=== PATIENT | female | born 1960 | race Caucasian/White ===

== ENCOUNTER → 2016-10-17 | Outpatient (CLI) | payer MEDICARE ==
--- NOTE | 2016-10-17 16:04 | NM ---
EXAMINATION TYPE: NM bone 3 phase DATE OF EXAM: 10/17/2016 2:01 PM COMPARISON: NONE HISTORY: Low back pain Triple phase bone scintigraphy was performed following the injection of25.4 mCi Tc 99m MDP. Immediat e images and 5 hours post injection images acquired. FINDINGS: Blood flow and pool images are normal. Delayed static imaging shows increased activity in the posterior elements of L2. The entire spine is not imaged. IMPRESSION: Abnormal activity in the L2 vertebral body. CT scan versus MRI of the lumbar spine would be suggested .
== END | disposition home or self-care (01) ==
LOC: RADNMMAIN 07:36
PROVIDERS: ATTEND Family Medicine
DX: M54.17 Radiculopathy, lumbosacral region (principal); M86.9 Osteomyelitis, unspecified; M54.5 Low back pain; R94.8 Abnormal results of function studies of other organs and systems; Z98.1 Arthrodesis status
CPT/HCPCS: 78315; A9503

== ENCOUNTER → 2016-10-28 | Outpatient (CLI) | payer MEDICARE ==
--- NOTE | 2016-10-28 12:52 | US ---
EXAMINATION TYPE: US venous doppler duplex LE LT DATE OF EXAM: 10/28/2016 12:44 PM COMPARISON: NONE CLINICAL HISTORY: M79.662 PAIN LT LOWER LIMB, R22.42 SWELLING LT LOWER LIMB. Left leg pain and swelli ng SIDE PERFORMED: Left VESSELS IMAGED: External Iliac Vein (EIV) Common Femoral Vein Deep Femoral Vein Greater Saphenous Vein * Femoral Vein Popliteal Vein Small Saphenous Vein * Proximal Calf Veins (* superficial vessels) TECHNOLOGIST IMPRESSION: wnl IMPRESSION: Left Leg: Negative for DVT
[2016-10-28 13:23] LABS: Basophils % (A) 1 %; CH 33.9; CHCM 32.3; Eosinophils # (A) 0.1 k/uL (0-0.7); Eosinophils % (A) 2 %; HDW 2.06; HGB 14.2 gm/dL (11.4-16.0); Luc # (Auto) 0.16; Luc % (Auto) 2; Lymphocytes # (A) 1.7 k/uL (1.0-4.8); Lymphocytes % (A) 23 %; MCH 33.2 pg (25.0-35.0); MCHC 31.4 g/dL (31.0-37.0); MCV 105.5 fL (80.0-100.0); Macrocytosis Moderate; Mean Platelet Volume 7.4; Monocytes # (A) 0.3 k/uL (0-1.0); Monocytes % (A) 4 %; Neutrophils % (A) 68 %; RBC 4.27 m/uL (3.80-5.40); RDW 13.5 % (11.5-15.5); WBC 7.3 k/uL (3.8-10.6); WBC (Perox) 7.52
[2016-10-28 15:23] LABS: Erythrocyte Sedimentation Rate 8 mm/hr (0-20)
== END | disposition home or self-care (01) ==
LOC: RADUSWWP 12:20
PROVIDERS: ATTEND Family Medicine
DX: M79.662 Pain in left lower leg (principal); M79.89 Other specified soft tissue disorders; S80.02XA Contusion of left knee, initial encounter; M79.605 Pain in left leg
CPT/HCPCS: 36415; 85025; 85652; 86140

== ENCOUNTER → 2016-11-07 | Outpatient (CLI) | payer MEDICARE ==
[2016-11-07 17:46] LABS: Non-African American GFR(MDRD) >60 (>60 ml/min/1.73 sqM)
--- NOTE | 2016-11-07 23:03 | MR ---
EXAMINATION TYPE: MR lumbar spine wo/w con DATE OF EXAM: 11/07/2016 8:52 PM COMPARISON: Bone scan 17 October 2016, prior lumbar MRI 23 February 2015, plain film 22 February 2015 HISTORY: LOW BACK PAIN AND LEFT LEG TECHNIQUE: Multiplanar, multisequence images of the lumbar spine were acquired utilizing 13 mL intravenous Multi Rosalie gadolinium contrast. L1-L2: Right posterior paracentral extension of endplate disc complex is present causing anterolatera l mass effect on the thecal sac. There is facet arthropathy encroaching on the lateral recess right g reater than left as well as circumferential extension of endplate disc complex encroaching somewhat o n the right neural foramen. The oblique loss of height of the L2 vertebral body causes a scoliosis. L2-L3: Broad-based posterior disc bulge causes only mild anterior mass effect on the thecal sac, no s ignificant foraminal encroachment. Similar facet arthropathy causes only mild posterior lateral mass effect on the thecal sac. L3-L4: Posterior broad-based disc bulge causes anterior mass effect on the thecal sac similar to prio r exam, only mild central stenosis, no significant foraminal encroachment. Mild facet arthropathy. L4-L5: There is a lateral disc herniation which encroaches on the neural foramen which may have progr essed in the interval left greater than right. Some anterolateral mass effect is present on the theca l sac. Circumferential posterior disc herniation causes anterior mass effect on the thecal sac somewh at increased as compared to previous exam, moderate central canal stenosis is suspected. L5-S1: Normal disc appearance without desiccation. No herniation, protrusion or disc bulging. No ca nal stenosis is present. Foramina are patent bilaterally. Lumbar segments are intact. No paraspinal masses are identified. Conus medullaris has a normal appe arance. There is been interval oblique loss of height of the L2 vertebral body and secondary hypertrophic demetria nge with spondylosis, endplate marrow signal change. Loss of disc height and signal is present. There is some enhancement at the superior endplate of L2. Multilevel spondylosis is present with associated loss of disc height and signal. Posterior fusion ch lonnie present at L5-S1, susceptibility artifact likely causes decreased sensitivity. IMPRESSION: There has been progression of scoliosis due to oblique loss of height of the L2 vertebral body. Endpl ate signal changes are thought likely due to degenerative change, difficult to entirely exclude disci tis, correlate clinically. Progression of disc herniation L4-5. Limitations due to postprocedural demetria nges. Multilevel degenerative disc disease as described. Consider plain film correlation in compariso n to previous plain film, CT scan through the lumbar spine.
== END ==
LOC: RADMRIMAIN 17:23
PROVIDERS: ATTEND Family Medicine
DX: M41.9 Scoliosis, unspecified (principal); M51.26 Other intervertebral disc displacement, lumbar region; M51.36 Other intervertebral disc degeneration, lumbar region
CPT/HCPCS: 82565; 72158; 36415; A9577

== ENCOUNTER → 2017-01-16 | Outpatient (CLI) | payer MEDICARE ==
[2017-01-16 14:56] LABS: EKG EKG PERFORMED
[2017-01-16 15:22] LABS: Basophils % (A) 0 %; CH 33.4; CHCM 31.1; Eosinophils # (A) 0.1 k/uL (0-0.7); Eosinophils % (A) 1 %; HDW 1.92; HGB 14.4 gm/dL (11.4-16.0); Luc # (Auto) 0.13; Luc % (Auto) 1; Lymphocytes # (A) 0.9 k/uL (1.0-4.8); Lymphocytes % (A) 9 %; MCH 33.6 pg (25.0-35.0); MCHC 31.2 g/dL (31.0-37.0); MCV 107.8 fL (80.0-100.0); Macrocytosis Moderate; Mean Platelet Volume 6.9; Monocytes # (A) 0.4 k/uL (0-1.0); Monocytes % (A) 4 %; Neutrophils % (A) 84 %; RBC 4.27 m/uL (3.80-5.40); RDW 12.5 % (11.5-15.5); WBC 9.5 k/uL (3.8-10.6); WBC (Perox) 10.01
[2017-01-16 15:27] LABS: INR 0.9 (<1.1); Partial Thromboplastin Time 23.1 sec (22.0-30.0); Prothrombin Time 9.4 sec (9.0-12.0)
[2017-01-16 15:49] LABS: ALT 25 U/L (9-52); AST 19 U/L (14-36); Alkaline Phosphatase 79 U/L (38-126); Blood Urea Nitrogen 22 mg/dL (7-17); Calcium 9.9 mg/dL (8.4-10.2); Carbon Dioxide 26 mmol/L (22-30); Glucose 422 mg/dL (74-99); Non-African American GFR(MDRD) >60 (>60 ml/min/1.73 sqM); Potassium 5.7 mmol/L (3.5-5.1); Sodium 136 mmol/L (137-145); Total Bilirubin 0.6 mg/dL (0.2-1.3); Total Protein 7.2 g/dL (6.3-8.2)
[2017-01-16 15:57] LABS: Anion Gap 10 mmol/L; Chloride 100 mmol/L (98-107)
[2017-01-16 16:07] LABS: Appearance,Urine Clear (Clear); Bilirubin,Urine Negative (Negative); Glucose,Urine (UA) 4+ (Negative); Ketones,Urine Negative (Negative); Leukocyte Esterase,Urine Negative (Negative); Nitrite,Urine Negative (Negative); Protein,Urine Negative (Negative); Specific Gravity,Urine 1.022 (1.001-1.035); UA Billing (MACRO vs. MICRO) CHEM; Urobilinogen,Urine <2.0 mg/dL (<2.0)
== END | disposition home or self-care (01) ==
LOC: LABWHC1 14:46
DX: Z01.810 Encounter for preprocedural cardiovascular examination (principal); M47.26 Other spondylosis with radiculopathy, lumbar region
CPT/HCPCS: 36415; 80053; 81003; 85025; 85610; 85730; 93005

== ENCOUNTER → 2017-02-19 | Outpatient (CLI) | payer MEDICARE ==
--- NOTE | 2017-02-19 15:41 | XR ---
EXAMINATION TYPE: XR lumbar spine 2 or 3V DATE OF EXAM: 02/19/2017 CLINICAL HISTORY: Low back pain into left leg. Surgery September 2016. TECHNIQUE: Dynamic flexion and extension lateral images of the lumbar spine are obtained. COMPARISON: MRI lumbar spine November 07, 2016. FINDINGS: Posterior fusion hardware lumbosacral junction is redemonstrated. There is disc space narro wing with sclerosis and vacuum disc phenomenon at L1-L2 level redemonstrated. With mild height loss s uperior anterior L2 endplate is again seen. No suspicious focal subluxation is present on dynamic fle xion and extension views throughout the lumbar spine including surgical L5-S1 level. Overlying vascul ar calcification is present. Spinous process resection lower lumbar levels is redemonstrated. IMPRESSION: As above
== END | disposition home or self-care (01) ==
LOC: RADXRMAIN 14:43
DX: M48.06 Spinal stenosis, lumbar region (principal)
CPT/HCPCS: 72100

== ENCOUNTER → 2017-10-26 | Outpatient (CLI) | payer MEDICARE, OTHER ==
--- NOTE | 2017-10-26 20:21 | XR ---
EXAMINATION TYPE: XR lumbar spine 2 or 3V DATE OF EXAM: 10/26/2017 COMPARISON: 06/29/2017 HISTORY: Back pain TECHNIQUE: 3 views FINDINGS: There are posterior rods and screws fusing the lumbar spine at L4-5. There is disc prosthes is at L4-5. Vertebra have fairly normal alignment. There is 40% anterior wedging of L2 vertebral body . Abdominal aorta is atheromatous. There is laminectomy of L4 and L5. IMPRESSION: Previous surgery. Old L2 compression fracture. No acute fracture seen. No significant demetria nge compared to old exam.
== END | disposition home or self-care (01) ==
LOC: RADXRMAIN 16:18
DX: M47.26 Other spondylosis with radiculopathy, lumbar region (principal)
CPT/HCPCS: 72100

== ENCOUNTER → 2017-12-24 | Outpatient (CLI) | payer MEDICARE ==
[2017-12-24 13:33] LABS: ALT 17 U/L (9-52); AST 16 U/L (14-36); Albumin 4.4 g/dL (3.5-5.0); Alkaline Phosphatase 70 U/L (38-126); Anion Gap 13 mmol/L; Blood Urea Nitrogen 27 mg/dL (7-17); Calcium 10.4 mg/dL (8.4-10.2); Carbon Dioxide 25 mmol/L (22-30); Chloride 104 mmol/L (98-107); Glucose 294 mg/dL (74-99); Potassium 4.9 mmol/L (3.5-5.1); Sodium 142 mmol/L (137-145); Total Bilirubin 0.5 mg/dL (0.2-1.3); Total Protein 6.9 g/dL (6.3-8.2)
--- NOTE | 2017-12-24 13:40 | XR ---
EXAMINATION TYPE: XR lumbar spine 2 or 3V DATE OF EXAM: 12/24/2017 COMPARISON: 10/26/2017 HISTORY: Spondylosis with radiculopathy TECHNIQUE: Three-view lumbar spine FINDINGS: There 5 lumbar-type vertebral bodies. Pedicles visualized are intact. There are pedicle scr ews at L4 and L5. Disc spacers present L4-5. There is a compression deformity with 50% loss of anteri or vertebral body height of L2. Degenerative disc changes are present L1-L2 posteriorly at L3-4. Dege nerative disc changes are present L5-S1. There is scoliosis present in the frontal projection. IMPRESSION: 1. Multilevel degenerative disc changes. 2. Old compression deformity of L2. 3. Scoliosis
== END | disposition home or self-care (01) ==
LOC: LABWHC1 12:54
PROVIDERS: ATTEND Internal Medicine Endocrinology, Diabetes & Metabolism
DX: M47.26 Other spondylosis with radiculopathy, lumbar region (principal); M41.86 Other forms of scoliosis, lumbar region; E10.65 Type 1 diabetes mellitus with hyperglycemia
CPT/HCPCS: 36415; 72100; 80053; 84681

== ENCOUNTER 2018-07-28 14:04 | Emergency (ER) | payer MEDICARE ==
--- NOTE | 2018-07-28 14:38 | ED ---
General Adult HPI - General Chief complaint: Fall Stated complaint: WEAKNESS Time Seen by Provider: 07/28/18 14:20 Source: patient, EMS, RN notes reviewed Mode of arrival: EMS Limitations: no limitations - History of Present Illness Initial comments: Patient is a pleasant 58-year-old female presenting to the emergency Department with weakness. Patient is drowsy and is a poor historian. Patient states she felt fine this morning and then around noon started having speech problems. Patient states she still has speech problems. Patient states she does have chronic foot drop on the left since back surgery several months ago. Patient states her left leg seems weaker than normal and she fell down. Patient does not feel confused. Patient did vomit once. Patient denies any injury when she fell. Patient states she was trying to use her walker. Patient denies any head injury or loss of consciousness. Patient states she does not feel well. Patient is overall a poor historian. - Related Data Home Medications Medication Instructions Recorded Confirmed LORazepam [Ativan] 1 mg PO BID PRN 05/29/16 07/28/18 Gabapentin 800 mg PO TID 07/28/18 07/28/18 Hydrocodone/Acetaminophen [[place] 1 tab PO Q8H PRN 07/28/18 07/28/18 10-325] Ibuprofen [Motrin] 800 mg PO TID PRN 07/28/18 07/28/18 Insulin Glargine [Lantus] 20 unit SQ HS 07/28/18 07/28/18 Methocarbamol [Robaxin] 750 mg PO TID PRN 07/28/18 07/28/18 Ondansetron HCl [Zofran] 4 mg PO Q6H PRN 07/28/18 07/28/18 QUEtiapine [SEROquel] 400 mg PO HS 07/28/18 07/28/18 fentaNYL 25MCG/HR PATCH [Duragesic 1 patch TRANSDERM Q72H 07/28/18 07/28/18 25MCG/HR] lamoTRIgine [LaMICtal] 100 mg PO TID 07/28/18 07/28/18 lamoTRIgine [LaMICtal] 200 mg PO BID 07/28/18 07/28/18 Allergies Allergy/AdvReac Type Severity Reaction Status Date / Time codeine Allergy Unknown Verified 07/28/18 14:54 bupropion HCl AdvReac TIA Verified 07/28/18 14:53 [From Wellbutrin] steroids AdvReac INCREASED Uncoded 07/28/18 14:14 BLOOD SUGAR Review of Systems ROS Statement: Those systems with pertinent positive or pertinent negative responses have been documented in the HPI. ROS Other: All systems not noted in ROS Statement are negative. Constitutional: Denies: fever Eyes: Denies: eye pain ENT: Denies: ear pain Respiratory: Denies: cough Cardiovascular: Denies: chest pain Endocrine: Reports: fatigue Gastrointestinal: Reports: vomiting. Denies: abdominal pain Genitourinary: Denies: dysuria Musculoskeletal: Denies: back pain Skin: Denies: rash Neurological: Reports: weakness, abnormal gait. Denies: headache, confusion Past Medical History Past Medical History: CVA/TIA, Diabetes Mellitus Additional Past Medical History / Comment(s): bipolar, tia 2006, chronic lower back pain, dry skin, osteomyelitis History of Any Multi-Drug Resistant Organisms: None Reported Past Surgical History: Back Surgery, Section, Hysterectomy Additional Past Surgical History / Comment(s): Lumbar laminectomy followed by lumbar fusion with Dr. Fox, right carpal tunnel release Past Anesthesia/Blood Transfusion Reactions: No Reported Reaction Past Psychological History: Anxiety, Bipolar, Depression Smoking Status: Current some day smoker Past Alcohol Use History: None Reported Past Drug Use History: None Reported - Past Family History Father Family Medical History: Diabetes Mellitus, Hyperlipidemia, Hypertension Additional Family Medical History / Comment(s): retinopathy Mother Family Medical History: Hyperlipidemia, Hypertension, Myocardial Infarction ([place]) , Thyroid Disorder Additional Family Medical History / Comment(s): triple vessel cabg General Exam Limitations: no limitations General appearance: other (Patient is drowsy but arousable to voice. Patient mumbles all words. Patient is slow to follow commands.) Head exam: Present: atraumatic, normocephalic Eye exam: Present: normal appearance, PERRL ENT exam: Present: normal oropharynx Neck exam: Present: normal inspection. Absent: tenderness Respiratory exam: Present: normal lung sounds bilaterally Cardiovascular Exam: Present: regular rate, normal rhythm Expanded Peripheral pulses: 2+: Radial (R), Radial (L), Dorsalis Pedis (R), Dorsalis Pedis (L) GI/Abdominal exam: Present: soft. Absent: tenderness Extremities exam: Present: normal inspection. Absent: pedal edema, calf tenderness Neurological exam: Present: CN II-XII intact Expanded Neurological exam: Present: protecting the airway, other (Patient mumbles. Patient is slow to follow commands.) Patient oriented to: Present: person, place, time Cranial nerves: EOM's Intact: Normal Sensory exam: Upper Extremity Light Touch: Normal, Lower Extremity Light Touch: Normal Motor strength exam: RUE: 5, LUE: 5, RLE: 2/1, LLE: 2/1 (Patient unable to dorsiflex) Eye Response: (3) open to voice Motor Response: (6) obeys commands Verbal Response: (5) oriented Psychiatric exam: Present: flat affect Skin exam: Present: normal color Course Vital Signs 07/28/18 07/28/18 07/28/18 14:06 14:13 14:30 Temperature 98.2 F Pulse Rate 93 94 91 Respiratory 18 20 Rate Blood Pressure 177/98 177/98 O2 Sat by Pulse 96 93 L 95 Oximetry 07/28/18 07/28/18 07/28/18 15:00 15:30 16:00 Temperature Pulse Rate 84 71 67 Respiratory 20 18 20 Rate Blood Pressure 181/92 176/90 165/85 O2 Sat by Pulse 97 95 96 Oximetry 07/28/18 07/28/18 16:30 17:00 Temperature 98.0 F Pulse Rate 64 80 Respiratory 18 18 Rate Blood Pressure 174/74 179/79 O2 Sat by Pulse 98 98 Oximetry - Reevaluation(s) Reevaluation #1: 07/28/18 14:37 Patient does have abnormal presentation. Code stroke was called for possible acute stroke. 07/28/18 15:03 Nursing did discuss case with Dr. Boo who recommends conservative treatment, no TPA EKG Findings - EKG Comments: EKG Findings:: Normal sinus rhythm 89. TN 152. QRS 90. QT 402. QTC 49. Normal axis. Septal Q waves. No acute ST change. Medical Decision Making - Medical Decision Making Patient reevaluated and is symptom-free at this time. Daughter is present and also agrees patient is acting normal at this time. Patient states she did have similar symptoms years ago associated with TIA. Daughter does question if symptoms could be medication related. No focal deficits on exam. Clear speech. Patient follows commands appropriately. Case was discussed in detail with Dr. Clifton who is familiar with this patient. He is comfortable with discharge home and will follow up with patient on Thursday. Patient updated. Patient is made aware that TIA is not completely ruled out at this point and would need to return if there are worsening symptoms. - Lab Data Result diagrams: 07/28/18 14:12 07/28/18 14:12 Lab Results 07/28/18 07/28/18 07/28/18 Range/Units 14:12 14:12 14:12 WBC 7.3 (3.8-10.6) k/uL RBC 4.09 (3.80-5.40) m/uL Hgb 13.7 (11.4-16.0) gm/dL Hct 42.2 (34.0-46.0) % MCV 103.1 H (80.0-100.0) fL MCH 33.4 (25.0-35.0) pg MCHC 32.4 (31.0-37.0) g/dL RDW 13.0 (11.5-15.5) % Plt Count 338 (150-450) k/uL Neutrophils % 57 % Lymphocytes % 33 % Monocytes % 6 % Eosinophils % 2 % Basophils % 0 % Neutrophils # 4.1 (1.3-7.7) k/uL Lymphocytes # 2.4 (1.0-4.8) k/uL Monocytes # 0.4 (0-1.0) k/uL Eosinophils # 0.2 (0-0.7) k/uL Basophils # 0.0 (0-0.2) k/uL Macrocytosis Slight PT (9.0-12.0) sec INR (<1.2) APTT (22.0-30.0) sec Sodium 144 (137-145) mmol/L Potassium 4.1 (3.5-5.1) mmol/L Chloride 109 H (98-107) mmol/L Carbon Dioxide 25 (22-30) mmol/L Anion Gap 10 mmol/L BUN 23 H (7-17) mg/dL Creatinine 0.61 (0.52-1.04) mg/dL Est GFR (CKD-EPI)AfAm >90 (>60 ml/min/1.73 sqM) Est GFR (CKD-EPI)NonAf >90 (>60 ml/min/1.73 sqM) Glucose 93 (74-99) mg/dL POC Glucose (mg/dL) (75-99) mg/dL POC Glu [employer] Counter Person ID Calcium 10.3 H (8.4-10.2) mg/dL Total Bilirubin 0.5 (0.2-1.3) mg/dL AST 26 (14-36) U/L ALT 21 (9-52) U/L Alkaline Phosphatase 71 (38-126) U/L Total Creatine Kinase 126 (30-135) U/L CK-MB (CK-2) 2.6 H (0.0-2.4) ng/mL CK-MB (CK-2) Rel Index 2.1 Troponin I <0.012 (0.000-0.034) ng/mL Total Protein 7.6 (6.3-8.2) g/dL Albumin 4.4 (3.5-5.0) g/dL 07/28/18 07/28/18 Range/Units 14:12 15:11 WBC (3.8-10.6) k/uL RBC (3.80-5.40) m/uL Hgb (11.4-16.0) gm/dL Hct (34.0-46.0) % MCV (80.0-100.0) fL MCH (25.0-35.0) pg MCHC (31.0-37.0) g/dL RDW (11.5-15.5) % Plt Count (150-450) k/uL Neutrophils % % Lymphocytes % % Monocytes % % Eosinophils % % Basophils % % Neutrophils # (1.3-7.7) k/uL Lymphocytes # (1.0-4.8) k/uL Monocytes # (0-1.0) k/uL Eosinophils # (0-0.7) k/uL Basophils # (0-0.2) k/uL Macrocytosis PT 9.4 (9.0-12.0) sec INR 0.9 (<1.2) APTT 20.6 L (22.0-30.0) sec Sodium (137-145) mmol/L Potassium (3.5-5.1) mmol/L Chloride (98-107) mmol/L Carbon Dioxide (22-30) mmol/L Anion Gap mmol/L BUN (7-17) mg/dL Creatinine (0.52-1.04) mg/dL Est GFR (CKD-EPI)AfAm (>60 ml/min/1.73 sqM) Est GFR (CKD-EPI)NonAf (>60 ml/min/1.73 sqM) Glucose (74-99) mg/dL POC Glucose (mg/dL) 99 (75-99) mg/dL POC Glu [employer] Counter Person ID Monica Bucio Calcium (8.4-10.2) mg/dL Total Bilirubin (0.2-1.3) mg/dL AST (14-36) U/L ALT (9-52) U/L Alkaline Phosphatase (38-126) U/L Total Creatine Kinase (30-135) U/L CK-MB (CK-2) (0.0-2.4) ng/mL CK-MB (CK-2) Rel Index Troponin I (0.000-0.034) ng/mL Total Protein (6.3-8.2) g/dL Albumin (3.5-5.0) g/dL - Radiology Data Radiology results: report reviewed (Computed tomography scan of the brain shows no acute process. CT angiogram shows some narrowing of the right internal carotid artery without significant flow limitation.), image reviewed (Chest x- ray shows no acute process) Disposition Clinical Impression: Altered mental status Disposition: HOME SELF-CARE Condition: Stable Instructions: Altered Mental Status (ED) Additional Instructions: Please follow-up with Dr. Clifton on Thursday. You could call him at anytime if needed before then. Return for change in mental status, weakness, confusion , loss of sensation, speech comes, worsening symptoms or other concerns. Is patient prescribed a controlled substance at d/c from ED?: No Referrals: Ricky Clifton MD [Primary Care Provider] - 1-2 days Time of Disposition: 17:42
[2018-07-28 15:00] LABS: Basophils % (A) 0 %; Eosinophils # (A) 0.2 k/uL (0-0.7); Eosinophils % (A) 2 %; HCT 42.2 % (34.0-46.0); HGB 13.7 gm/dL (11.4-16.0); Lymphocytes # (A) 2.4 k/uL (1.0-4.8); Lymphocytes % (A) 33 %; MCH 33.4 pg (25.0-35.0); MCHC 32.4 g/dL (31.0-37.0); MCV 103.1 fL (80.0-100.0); Macrocytosis Slight; Mean Platelet Volume 6.5; Monocytes # (A) 0.4 k/uL (0-1.0); Monocytes % (A) 6 %; Neutrophils # (A) 4.1 k/uL (1.3-7.7); Neutrophils % (A) 57 %; Platelet Count 338 k/uL (150-450); RBC 4.09 m/uL (3.80-5.40); WBC 7.3 k/uL (3.8-10.6)
[2018-07-28 15:03] LABS: ALT 21 U/L (9-52); AST 26 U/L (14-36); Albumin 4.4 g/dL (3.5-5.0); Alkaline Phosphatase 71 U/L (38-126); Anion Gap 10 mmol/L; Blood Urea Nitrogen 23 mg/dL (7-17); Calcium 10.3 mg/dL (8.4-10.2); Carbon Dioxide 25 mmol/L (22-30); Chloride 109 mmol/L (98-107); Glucose 93 mg/dL (74-99); Potassium 4.1 mmol/L (3.5-5.1); Sodium 144 mmol/L (137-145); Total Bilirubin 0.5 mg/dL (0.2-1.3); Total Protein 7.6 g/dL (6.3-8.2)
[2018-07-28 15:04] LABS: Creatine Kinase 126 U/L (30-135)
[2018-07-28 15:17] LABS: Creatine Kinase MB 2.6 ng/mL (0.0-2.4); Troponin I <0.012 ng/mL (0.000-0.034)
--- NOTE | 2018-07-28 15:17 | CT ---
EXAMINATION TYPE: CT brain wo con for TPA DATE OF EXAM: 07/28/2018 COMPARISON: 05/31/2016 INDICATION: Bilateral leg weakness, history of CVA. DLP: 1037 mGycm, Automated exposure control for dose reduction was used. CONTRAST: None CT of the brain is performed utilizing 3 mm thick sections through the posterior fossa and 3 mm thick sections through the remaining calvarium. Study is performed within 24 hours of arrival to the hosp ital. No abnormal hyperdensity is present to suggest an acute intracranial hemorrhage. No mass lesion is evident. No acute infarcts are evident. No old infarcts are identified. Ventricles and sulci are mildly prominent for the patient age. Paranasal sinuses and mastoid air cells within the [id number] are clear. IMPRESSIONS: 1. No acute intracranial process.
--- NOTE | 2018-07-28 15:18 | XR ---
EXAMINATION TYPE: XR chest 1V portable DATE OF EXAM: 07/28/2018 COMPARISON: 05/29/2016 HISTORY: Altered mental status TECHNIQUE: Upright AP chest FINDINGS: Heart size is normal. The pulmonary vasculature is normal. No suspicious infiltrates are ev ident. No significant interval changes evident. IMPRESSION: 1. No acute pulmonary process.
[2018-07-28 15:21] LABS: INR 0.9 (<1.2); Prothrombin Time 9.4 sec (9.0-12.0)
[2018-07-28 15:25] LABS: Partial Thromboplastin Time 20.6 sec (22.0-30.0)
[2018-07-28 15:38] LABS: Glucose,Whole Blood 99 mg/dL (75-99)
--- NOTE | 2018-07-28 16:43 | CT ---
EXAMINATION TYPE: CT angio head neck DATE OF EXAM: 07/28/2018 HISTORY: Bilateral leg weakness, history of CVA. COMPARISON: None CT DLP: 338.2 mGycm. Automated Exposure Control for Dose Reduction was Utilized. TECHNIQUE: CTA scan of the neck is performed with IV Contrast, patient injected with 65 mL of Isovue 370, axial images are obtained, coronal and sagittal reformatted images are reviewed. Three-D recons tructed images are created on an independent workstation and reviewed. FINDINGS: Carotid/Vascular Structures: Carotid bifurcations are normal. No significant stenosis is evident. The re is some narrowing at the origin of the right internal carotid artery There is a three-vessel arch. Vertebral arteries appear codominant. Other: [place]: Internal carotid arteries bifurcate normally into A1 and M1 segments. Anteri or communicating artery is patent. A2 segments are normal. No posterior communicating arteries are ev ident. Vertebrobasilar arteries within the [id number] are normal. Posterior cerebral vasculature i s normal. Middle cerebral artery branching appears normal. IMPRESSION: 1. Some narrowing at the origin of the right internal carotid artery without significant flow-limitin g stenosis. 2. Left carotid bifurcation appears normal. 3. [place] appears normal.
[2018-07-28 18:10] LABS: Appearance,Urine Clear (Clear); Bilirubin,Urine Negative (Negative); Blood,Urine Negative (Negative); Color,Urine Light Yellow; Glucose,Urine (UA) Negative (Negative); Ketones,Urine Negative (Negative); Leukocyte Esterase,Urine Negative (Negative); Nitrite,Urine Negative (Negative); PH, Urine 7.5 (5.0-8.0); Protein,Urine Trace (Negative); Specific Gravity,Urine 1.019 (1.001-1.035); Urobilinogen,Urine <2.0 mg/dL (<2.0)
[2018-07-28 18:21] LABS: Amphetamine Screen,Urine Not Detected (NotDetected); Barbiturate Screen,Urine Not Detected (NotDetected); Benzodiazepines Screen,Urine Detected (NotDetected); Cocaine Screen,Urine Not Detected (NotDetected); Methadone Screen, Urine Not Detected (NotDetected); Opiate Screen,Urine Not Detected (NotDetected); Oxycodone Screen, Urine Not Detected (NotDetected); Phencyclidine Screen,Urine Not Detected (NotDetected); Tricyclic Antidepressant,Urine Not Detected (NotDetected); Urn Cannabinoid Scrn Not Detected (NotDetected)
[2018-07-28 18:32] VITALS: BP 166/88; PULSE 79; RESP 20; TEMP 98.1
[2018-07-29 04:10] LABS: Hemoglobin A1C 9.4 % (4.0-6.0)
== END 2018-07-28 18:32 | disposition home or self-care (01) ==
LOC: EC 14:04
DX: R41.82 Altered mental status, unspecified (principal); R53.1 Weakness; R11.10 Vomiting, unspecified; M21.379 Foot drop, unspecified foot; E11.69 Type 2 diabetes mellitus with other specified complication; M86.9 Osteomyelitis, unspecified; F31.9 Bipolar disorder, unspecified; R40.2132 Coma scale, eyes open, to sound, at arrival to emergency department; R40.2252 Coma scale, best verbal response, oriented, at arrival to emergency department; R40.2362 Coma scale, best motor response, obeys commands, at arrival to emergency department; F41.9 Anxiety disorder, unspecified; F17.200 Nicotine dependence, unspecified, uncomplicated; Z86.73 Personal history of transient ischemic attack (TIA), and cerebral infarction without residual deficits; Z90.710 Acquired absence of both cervix and uterus; Z98.1 Arthrodesis status; Z98.890 Other specified postprocedural states; Z79.4 Long term (current) use of insulin; Z79.899 Other long term (current) drug therapy; Z88.5 Allergy status to narcotic agent; Z88.8 Allergy status to other drugs, medicaments and biological substances; W19.XXXA Unspecified fall, initial encounter
CPT/HCPCS: 36415; 93005; 80053; 82550; 82553; 84484; 85025; 85610; 85730; 81003; 80306; 83036; 71045; 70496; 70450; 70498; 99285; Q9967

== ENCOUNTER 2018-09-17 11:53 | Emergency (ER) | payer MEDICARE ==
[2018-09-17 11:59] VITALS: TEMP 97.3
[2018-09-17] MEDS ORDERED: SODIUM CHLORIDE 0.9% 1,000 ML IV STA ×3 (12:19→15:16)
--- NOTE | 2018-09-17 12:23 | ED ---
Recheck HPI - General Chief Complaint: Recheck/Abnormal Lab/Rx Stated Complaint: hyperglycemia Time Seen by Provider: 09/17/18 12:00 Source: patient Mode of arrival: EMS Limitations: no limitations - History of Present Illness Initial Comments: This is a 58-year-old female history bipolar disorder and diabetes who was sent in by her doctor today because of blood sugar greater than 500 and weakness. She states it feels like she did about a week ago when she had a "TIA". She denies any focal weakness she states yesterday blood sugar was fine she states she's thirsty but not been urinating more than usual. She denies a fevers chills sweats any headache loss of function to her upper or lower extremities or any other modifying factors at this time she did have nausea she was given 4 mg of Zofran by EMS. She still feels somewhat nauseated - Related Data Home Medications Medication Instructions Recorded Confirmed LORazepam [Ativan] 1 mg PO BID PRN 05/29/16 09/17/18 Hydrocodone/Acetaminophen [[place] 1 tab PO Q8H PRN 07/28/18 09/17/18 10-325] Ibuprofen [Motrin] 800 mg PO TID PRN 07/28/18 09/17/18 Insulin Glargine [Lantus] 20 unit SQ HS 07/28/18 09/17/18 Methocarbamol [Robaxin] 750 mg PO TID PRN 07/28/18 09/17/18 Ondansetron HCl [Zofran] 4 mg PO Q6H PRN 07/28/18 09/17/18 QUEtiapine [SEROquel] 400 mg PO HS 07/28/18 09/17/18 fentaNYL 25MCG/HR PATCH [Duragesic 1 patch TRANSDERM Q72H 07/28/18 09/17/18 25MCG/HR] lamoTRIgine [LaMICtal] 200 mg PO HS 07/28/18 09/17/18 Allergies Allergy/AdvReac Type Severity Reaction Status Date / Time codeine Allergy Unknown Verified 09/17/18 13:18 bupropion HCl AdvReac TIA Verified 09/17/18 13:18 [From Wellbutrin] steroids AdvReac INCREASED Uncoded 07/28/18 14:14 BLOOD SUGAR Review of Systems ROS Statement: Those systems with pertinent positive or pertinent negative responses have been documented in the HPI. ROS Other: All systems not noted in ROS Statement are negative. Past Medical History Past Medical History: CVA/TIA, Diabetes Mellitus Additional Past Medical History / Comment(s): bipolar, tia 2007, chronic lower back pain, dry skin, osteomyelitis History of Any Multi-Drug Resistant Organisms: None Reported Past Surgical History: Back Surgery, Section, Hysterectomy Additional Past Surgical History / Comment(s): Lumbar laminectomy followed by lumbar fusion with Dr. Fox, right carpal tunnel release Past Anesthesia/Blood Transfusion Reactions: No Reported Reaction Past Psychological History: Anxiety, Bipolar, Depression Smoking Status: Current some day smoker Past Alcohol Use History: None Reported Past Drug Use History: None Reported - Past Family History Father Family Medical History: Diabetes Mellitus, Hyperlipidemia, Hypertension Additional Family Medical History / Comment(s): retinopathy Mother Family Medical History: Hyperlipidemia, Hypertension, Myocardial Infarction (SD) , Thyroid Disorder Additional Family Medical History / Comment(s): triple vessel cabg General Exam - General Exam Comments Initial Comments: This is a well-developed well-nourished lethargic female who is awake alert oriented 3 Limitations: no limitations General appearance: alert, in no apparent distress Head exam: Present: atraumatic, normocephalic, normal inspection Eye exam: Present: normal appearance, PERRL, EOMI. Absent: scleral icterus, conjunctival injection, periorbital swelling ENT exam: Present: mucous membranes dry Neck exam: Present: normal inspection. Absent: tenderness, meningismus, lymphadenopathy Respiratory exam: Present: normal lung sounds bilaterally. Absent: respiratory distress, wheezes, rales, rhonchi, stridor Cardiovascular Exam: Present: regular rate, normal rhythm, normal heart sounds. Absent: systolic murmur, diastolic murmur, rubs, gallop, clicks GI/Abdominal exam: Present: soft, normal bowel sounds. Absent: distended, tenderness, guarding, rebound, rigid, pulsatile mass, hernia Extremities exam: Present: normal inspection, full ROM, normal capillary refill. Absent: tenderness, pedal edema, joint swelling, calf tenderness Back exam: Present: normal inspection Neurological exam: Present: alert, oriented X3, CN II-XII intact Psychiatric exam: Present: normal affect, normal mood Skin exam: Present: warm, dry, intact, normal color. Absent: rash Course Vital Signs 09/17/18 09/17/18 11:55 15:15 Temperature 97.3 F L Pulse Rate 93 66 Respiratory 18 9 L Rate Blood Pressure 202/97 158/123 O2 Sat by Pulse 92 L 97 Oximetry - Reevaluation(s) Reevaluation #1: 09/17/18 14:17 Patient still feeling nauseated. 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 This is similar to what she had about a month ago when she was admitted to this hospital. At that time she was in for her she had a TIA. Medical Decision Making - Medical Decision Making Patient did require IV fluids and IV insulin. Blood sugar did improve well as well as a blood pressure. I did discuss the case with Dr. Forbes. Patient will be discharged with follow-up as planned in 3 days the presentation is consistent with orthostatic event. Patient was dehydrated clinically - Lab Data Result diagrams: 09/17/18 12:24 09/17/18 12:24 Lab Results 09/17/18 09/17/18 09/17/18 Range/Units 12:24 12:24 12:24 WBC 6.5 (3.8-10.6) k/uL RBC 4.21 (3.80-5.40) m/uL Hgb 13.5 (11.4-16.0) gm/dL Hct 43.2 (34.0-46.0) % MCV 102.8 H (80.0-100.0) fL MCH 32.2 (25.0-35.0) pg MCHC 31.3 (31.0-37.0) g/dL RDW 12.8 (11.5-15.5) % Plt Count 294 (150-450) k/uL Neutrophils % 46 % Lymphocytes % 42 % Monocytes % 5 % Eosinophils % 3 % Basophils % 1 % Neutrophils # 3.0 (1.3-7.7) k/uL Lymphocytes # 2.7 (1.0-4.8) k/uL Monocytes # 0.3 (0-1.0) k/uL Eosinophils # 0.2 (0-0.7) k/uL Basophils # 0.0 (0-0.2) k/uL Macrocytosis Slight Sodium 138 (137-145) mmol/L Potassium 4.0 (3.5-5.1) mmol/L Chloride 105 (98-107) mmol/L Carbon Dioxide 25 (22-30) mmol/L Anion Gap 8 mmol/L BUN 25 H (7-17) mg/dL Creatinine 0.76 (0.52-1.04) mg/dL Est GFR (CKD-EPI)AfAm >90 (>60 ml/min/1.73 sqM) Est GFR (CKD-EPI)NonAf 89 (>60 ml/min/1.73 sqM) Glucose 375 H (74-99) mg/dL Calcium 9.5 (8.4-10.2) mg/dL Magnesium 2.1 (1.6-2.3) mg/dL Total Bilirubin 0.3 (0.2-1.3) mg/dL AST 17 (14-36) U/L ALT 29 (9-52) U/L Alkaline Phosphatase 72 (38-126) U/L Total Creatine Kinase 73 (30-135) U/L CK-MB (CK-2) 1.7 (0.0-2.4) ng/mL CK-MB (CK-2) Rel Index 2.3 Troponin I <0.012 (0.000-0.034) ng/mL Total Protein 6.8 (6.3-8.2) g/dL Albumin 4.1 (3.5-5.0) g/dL Amylase 37 (30-110) U/L Lipase 17 L (23-300) U/L - EKG Data -: EKG Interpreted by Me (Sinus rhythm rate is 74. Ago 162 QRS 94 QT since QTC 14463 right atrial e) - Radiology Data Radiology results: report reviewed (Review the x-ray and report shows no acute findings), image reviewed Disposition Clinical Impression: Orthostatic lightheadedness, Dehydration, Hyperglycemia, Vasovagal episode Disposition: HOME SELF-CARE Condition: Good Instructions: Dehydration (ED), Diabetic Hyperglycemia (ED) Is patient prescribed a controlled substance at d/c from ED?: No Referrals: Ricky Clifton MD [Primary Care Provider] - 1-2 days
--- NOTE | 2018-09-17 13:12 | XR ---
EXAMINATION TYPE: XR chest 2V DATE OF EXAM: 09/17/2018 COMPARISON: 07/28/2018 TECHNIQUE: PA and lateral views submitted. HISTORY: Cough FINDINGS: The lungs are clear and there is no pneumothorax, pleural effusion, or focal pneumonia. Hyperinflat ion suggests COPD. Degenerative changes of the spine. Diffuse osteopenia. No overt failure. IMPRESSION: 1. No acute process.
[2018-09-17 13:20] LABS: Basophils % (A) 1 %; Eosinophils # (A) 0.2 k/uL (0-0.7); Eosinophils % (A) 3 %; HCT 43.2 % (34.0-46.0); HGB 13.5 gm/dL (11.4-16.0); Lymphocytes # (A) 2.7 k/uL (1.0-4.8); Lymphocytes % (A) 42 %; MCH 32.2 pg (25.0-35.0); MCHC 31.3 g/dL (31.0-37.0); MCV 102.8 fL (80.0-100.0); Macrocytosis Slight; Mean Platelet Volume 6.6; Monocytes # (A) 0.3 k/uL (0-1.0); Monocytes % (A) 5 %; Neutrophils % (A) 46 %; Platelet Count 294 k/uL (150-450); RBC 4.21 m/uL (3.80-5.40); RDW 12.8 % (11.5-15.5); WBC 6.5 k/uL (3.8-10.6)
[2018-09-17 13:32] LABS: ALT 29 U/L (9-52); AST 17 U/L (14-36); Albumin 4.1 g/dL (3.5-5.0); Alkaline Phosphatase 72 U/L (38-126); Amylase 37 U/L (30-110); Anion Gap 8 mmol/L; Blood Urea Nitrogen 25 mg/dL (7-17); Calcium 9.5 mg/dL (8.4-10.2); Carbon Dioxide 25 mmol/L (22-30); Chloride 105 mmol/L (98-107); Glucose 375 mg/dL (74-99); Lipase 17 U/L (23-300); Magnesium 2.1 mg/dL (1.6-2.3); Sodium 138 mmol/L (137-145); Total Bilirubin 0.3 mg/dL (0.2-1.3); Total Protein 6.8 g/dL (6.3-8.2)
[2018-09-17 13:42] LABS: Creatine Kinase 73 U/L (30-135)
[2018-09-17] MEDS ORDERED: INSULIN REGULAR 100 UNIT/ML VIAL IV ONE (13:49)
[2018-09-17 13:55] LABS: Creatine Kinase MB 1.7 ng/mL (0.0-2.4); Troponin I <0.012 ng/mL (0.000-0.034)
[2018-09-17] MEDS ORDERED: ONDANSETRON 4 MG/2 ML VIAL IVP STA (14:16)
[2018-09-17 15:22] VITALS: BP 158/123; PULSE 66; RESP 9
[2018-09-17 21:26] LABS: Hemoglobin A1C 9.8 % (4.0-6.0)
[2018-09-17 23:08] LABS: Glucose,Whole Blood 150 mg/dL (75-99)
[2018-09-17 23:08] LABS: Glucose,Whole Blood 375 mg/dL (75-99)
== END 2018-09-17 16:52 | disposition home or self-care (01) ==
LOC: EC 11:53
DX: R42 Dizziness and giddiness (principal); E86.0 Dehydration; R55 Syncope and collapse; E11.65 Type 2 diabetes mellitus with hyperglycemia; F31.9 Bipolar disorder, unspecified; F41.9 Anxiety disorder, unspecified; M54.5 Low back pain; G89.29 Other chronic pain; F17.200 Nicotine dependence, unspecified, uncomplicated; Z86.73 Personal history of transient ischemic attack (TIA), and cerebral infarction without residual deficits; Z79.891 Long term (current) use of opiate analgesic; Z79.899 Other long term (current) drug therapy; Z79.4 Long term (current) use of insulin; Z88.5 Allergy status to narcotic agent; Z88.8 Allergy status to other drugs, medicaments and biological substances
CPT/HCPCS: 36415; 93005; 80053; 82150; 82550; 82553; 83690; 83735; 84484; 85025; 83036; 71046; 99285; 96374; 96361 ×4; J2405

== ENCOUNTER → 2018-10-14 | Outpatient (CLI) | payer MEDICARE ==
--- NOTE | 2018-10-14 12:17 | MR ---
EXAMINATION TYPE: MR lumbar spine wo con DATE OF EXAM: 10/14/2018 11:55 AM COMPARISON: 11/07/2016 HISTORY: Biomechanical lesion, unspecified Multiplanar, MultiSpin echo imaging of the lumbar spine was performed. L1-L2: Stable loss of height involving L2. Severe degenerative disc disease noted with desiccation se en. Right paracentral disc endplate complex with the disc bulging and encapsulating spur noted. There is right lateral recess stenosis and right foraminal. L2-L3: Mild disc desiccation. Mild posterior disc bulge. No significant effacement of the ventral the magda sac. No disc herniation or protrusion. No central stenosis. Facet joint arthropathy without evide nce for foraminal encroachment. L3-L4: Moderate disc desiccation. Mild/moderate circumferential disc bulge greatest posteriorly. Effa cement ventral thecal sac. Bilateral lateral recess stenosis and bilateral foraminal encroachment. No disc herniation or central stenosis. L4-L5: Decompressive laminectomy changes. Pedicular screws in place. Postoperative alignment is anato imani. Severe disc desiccation. Schmorl node formation. Recurrent or residual disease difficult to excl ude given lack of contrast. Bilateral foraminal encroachment. L5-S1: Decompressive laminectomy changes. Pedicular screws in place. Postoperative alignment is anato imani. Severe disc desiccation. Schmorl node formation. Recurrent or residual disease difficult to excl ude given lack of contrast. Bilateral foraminal encroachment. No paraspinal masses are identified. Conus medullaris has a normal appearance. IMPRESSION: 1. Stable evaluation of the lumbar spine. 2. Disc endplate complex paracentrally and to the right at L1-2 with right lateral recess stenosis an d right foraminal encroachment. Superior endplate loss of height of L2 stable. 3. Postoperative changes L4-5 and L5-S1 remain stable. See above.
== END | disposition home or self-care (01) ==
LOC: RADMRIMAIN 11:15
DX: M48.061 Spinal stenosis, lumbar region without neurogenic claudication (principal); M51.26 Other intervertebral disc displacement, lumbar region; M51.36 Other intervertebral disc degeneration, lumbar region; Z98.890 Other specified postprocedural states; M51.47 Schmorl's nodes, lumbosacral region
CPT/HCPCS: 72148

== ENCOUNTER → 2020-04-25 | Outpatient (CLI) | payer MEDICARE ==
--- NOTE | 2020-04-26 08:30 | XR ---
EXAMINATION TYPE: XR lumbosacral spine min 4V DATE OF EXAM: 04/25/2020 COMPARISON: 12/24/2017 HISTORY: 59-year-old female M54.57, back pain TECHNIQUE: 5 views FINDINGS: Degenerated levoconvex scoliosis centered along the upper lumbar spine. Postsurgical changes of L4-L5 posterior and interbody fusion. Superior endplate deformity with anterior wedging is unchanged from 12/24/2017 of the L2 vertebral body. Associated severe degenerative disc disease L-1-L2. Moderate prog ressive degenerative disc disease above the fusion at L3-L4. Similar moderate degenerative disc disea se below the fusion L5-S1. There are corresponding laminectomy changes. Facet arthropathy throughout. Trace grade 1 retrolisthesis of L2-L3 and L3-L4. IMPRESSION: 1. Degenerated levoconvex scoliosis centered along the upper lumbar spine with chronic superior endpl ate deformity and anterior wedging of L2 vertebral body. 2. Status post L4-L5 posterior and interbody fusion with laminectomy. 3. Severe degenerative disc disease L-1-L2. Progressive moderate degenerative disc disease above the fusion at L3-L4 and similar at L5-S1 below the fusion. 4. Degenerative grade 1 retrolisthesis at L2-L3 and L3-L4.
== END | disposition home or self-care (01) ==
LOC: RAD 16:50
PROVIDERS: ATTEND Family Medicine
DX: M48.56XA Collapsed vertebra, not elsewhere classified, lumbar region, initial encounter for fracture (principal); M51.36 Other intervertebral disc degeneration, lumbar region; M51.37 Other intervertebral disc degeneration, lumbosacral region; M43.16 Spondylolisthesis, lumbar region; Z98.1 Arthrodesis status
CPT/HCPCS: 72110

== ENCOUNTER 2020-06-22 20:27 | Emergency (ER) | payer MEDICARE ==
[2020-06-22 21:02] LABS: Glucose,Whole Blood >600 mg/dL (75-99)
[2020-06-22] MEDS ORDERED: SODIUM CHLORIDE 0.9% 2,000 ML IV ONE (21:22)
[2020-06-22] MEDS ORDERED: INSULIN REGULAR 100 UNIT/ML VIAL IV ONE (21:23)
[2020-06-22] MEDS ORDERED: CALCIUM GLUCONATE 2 GM in SODIUM CHLORIDE 0.9% 100 ML IVPB ONE (21:23)
[2020-06-22] MEDS ORDERED: SODIUM BICARB 8.4% 50 ML SYR (1 MEQ/ML) IV STA (21:24)
[2020-06-22 21:56] LABS: INR 1.2 (<1.2); Partial Thromboplastin Time 20.5 sec (22.0-30.0); Prothrombin Time 12.5 sec (9.0-12.0)
[2020-06-22 21:58] LABS: Appearance,Urine Clear (Clear); Bilirubin,Urine Negative (Negative); Blood,Urine Moderate (Negative); Color,Urine Light Yellow; Glucose,Urine (UA) 4+ (Negative); Leukocyte Esterase,Urine Negative (Negative); Mucus,Urine Rare /hpf; Nitrite,Urine Negative (Negative); Protein,Urine Trace (Negative); RBC,Urine <1 /hpf (0-5); Urobilinogen,Urine <2.0 mg/dL (<2.0); WBC,Urine 2 /hpf (0-5)
[2020-06-22 22:01] LABS: HCT 41.1 % (34.0-46.0); HGB 11.3 gm/dL (11.4-16.0); Hypochromasia Marked; MCH 32.3 pg (25.0-35.0); MCHC 27.5 g/dL (31.0-37.0); MCV 117.5 fL (80.0-100.0); Macrocytosis Marked; Mean Platelet Volume 7.9; Platelet Count 752 k/uL (150-450); RDW 12.9 % (11.5-15.5); WBC 46.2 k/uL (3.8-10.6)
[2020-06-22 22:04] LABS: Ketones,Urine 3+ (Negative)
[2020-06-22 22:09] LABS: Lactic Acid, Venous 3.9 mmol/L (0.7-2.0)
[2020-06-22 22:10] LABS: ALT 19 U/L (4-34); AST 24 U/L (14-36); African American GFR (CKD) 46 (>60 ml/min/1.73 sqM); Albumin 3.9 g/dL (3.5-5.0); Alkaline Phosphatase 208 U/L (38-126); Blood Urea Nitrogen 49 mg/dL (7-17); Calcium 11.5 mg/dL (8.4-10.2); Chloride 111 mmol/L (98-107); Non-African American GFR(CKD) 40 (>60 ml/min/1.73 sqM); Sodium 146 mmol/L (137-145); Total Bilirubin 0.5 mg/dL (0.2-1.3); Total Protein 6.9 g/dL (6.3-8.2)
--- NOTE | 2020-06-22 22:14 | XR ---
EXAMINATION TYPE: XR chest 2V DATE OF EXAM: 06/22/2020 COMPARISON: 09/17/2018 HISTORY: Cough TECHNIQUE: 2 views FINDINGS: Heart and mediastinum are normal. Lungs are clear. Diaphragm is normal. Bony thorax appears normal. IMPRESSION: Normal chest. No change.
--- NOTE | 2020-06-22 22:17 | CT ---
EXAMINATION TYPE: CT brain eliazarine wo con DATE OF EXAM: 06/22/2020 COMPARISON: CT brain 07/28/2018 HISTORY: ams, confusion, fall Pain CT DLP: 1369.1 mGycm Automated exposure control for dose reduction was used. There is cerebral cortical atrophy. There is no mass effect nor midline shift. There is no sign of in tracranial hemorrhage. There is 2 cm hypodense focus in the left posterior frontal lobe white matter. The calvarium is intact. Skull base is intact. Mastoid sinuses appear normal. Cervical vertebra show fairly normal alignment. There is intact facet joints. Prevertebral soft tissu es are intact. Disc spaces are fairly normal. There is no evidence of a fracture. There is mild spurr ing of the facet joints. IMPRESSION: Negative CT scan of the cervical spine. Minor degenerative spurring. Cerebral atrophy. Old left posterior frontal lobe white matter lacunar infarct is a change compared t o the old CT scan. No hemorrhage.
--- NOTE | 2020-06-22 22:19 | XR ---
EXAMINATION TYPE: XR lumbar spine 2 or 3V DATE OF EXAM: 06/22/2020 COMPARISON: 04/25/2020 HISTORY: Back pain Fall. Pain. TECHNIQUE: 4 views FINDINGS: There is posterior fusion surgery at L3-4 with disc prosthesis. There is revision of the di sc prosthesis compared to old exam. There is multilevel laminectomy in the mid and lower lumbar spine . There is 40% anterior wedging of L2 vertebral body. Fracture unchanged. I see no acute fracture. Sa croiliac joints are intact. There is moderate spondylosis at L1-2. There is disc prosthesis at L4-5. IMPRESSION: Recent disc prosthesis surgery. No acute fracture seen. Old L2 compression fracture.
[2020-06-22 22:27] LABS: Glucose 852 mg/dL (74-99)
[2020-06-22 22:28] LABS: Carbon Dioxide <5 mmol/L (22-30); Potassium 6.3 mmol/L (3.5-5.1)
[2020-06-22 22:46] LABS: Eosinophils # (M) 0.46 k/uL (0-0.7); Neutrophils % (M) 84 %; Nucleated Red Blood Cells 0 /100 WBC (0-0)
[2020-06-22] MEDS ORDERED: SODIUM CHLORIDE 0.9% 1,000 ML IV ONE (22:47)
[2020-06-22 22:48] LABS: Band Neutrophils % 6 %; Lymphocytes # (M) 3.23 k/uL (1.0-4.8); Metamyelocytes # (M) 0.46 k/uL (0); Metamyelocytes % 1 %; Monocytes # (M) 1.85 k/uL (0-1.0); Total Cells Counted 200; Toxic Granulation Present; Toxic Vacuolation Present
[2020-06-22] MEDS ORDERED: fentaNYL (PF) 50 MCG/ML 2 ML AMP IVP STA (22:54)
[2020-06-22 23:05] LABS: C Reactive Protein 439.7 mg/L (<10.0)
--- NOTE | 2020-06-22 23:16 | ED ---
Altered Mental Status HPI - General Chief Complaint: Altered Mental Status Stated Complaint: Altered Mental Status Source: patient, EMS Mode of arrival: EMS Limitations: altered mental status, physical limitation - History of Present Illness Initial Comments: Patient is a 60-year-old female with past medical history of diabetes mellitus type 1, bipolar disorder, CVA and lumbar ostium myelitis who presents to the emergency department with reported altered mental status. Patient recently had a laminectomy done at [facility] by Dr. Blunt on June 13. She was discharged from the hospital on June 16 to rehab. She only statement to the following Thursday because she was doing so well. Daughter states that she's been ambulating without difficulty and has had no post-op issues. The patient became confused tonight. states that he heard the door slam. The daughter came to the house and they searched the area looking for the patient and found her in a neighbors house on the floor, naked. They called EMS who found her Accu-Chek to read as "high." Daughter states that she thought she had been complaint with her medications however cannot speak on behalf of today. She has been in DKA before however reports that her altered mental status was never this severe. 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 Report the patient has had no recent travel and is no longer on insulin. There was no report of any fevers or chills. Unknown if the patient suffered any blunt head trauma when she ran from the house. The patient cannot provide any history and therefore this HPI is limited - Related Data Home Medications Medication Instructions Recorded Confirmed LORazepam [Ativan] 1 mg PO QID PRN 05/29/16 06/22/20 Hydrocodone/Acetaminophen [Strang 1 tab PO QID PRN 07/28/18 06/22/20 10-325] Ibuprofen [Motrin] 800 mg PO TID PRN 07/28/18 06/22/20 QUEtiapine [SEROquel] 100 - 400 mg PO HS PRN 07/28/18 06/22/20 lamoTRIgine [LaMICtal] 200 mg PO HS 07/28/18 09/17/18 methocarbamoL [Robaxin] 750 mg PO Q6H PRN 07/28/18 06/22/20 Gabapentin 800 mg PO TID 06/22/20 06/22/20 Insulin Aspart [NovoLOG Flexpen] See Protocol SQ ACHS 06/22/20 06/22/20 Insulin Glargine,Hum.rec.anlog 20 unit SQ HS 06/22/20 06/22/20 [Lantus Solostar] fentaNYL 50MCG/HR PATCH [Duragesic 1 patch TRANSDERM Q72H 06/22/20 06/22/20 50MCG/HR] Allergies Allergy/AdvReac Type Severity Reaction Status Date / Time codeine Allergy Unknown Verified 06/22/20 23:10 bupropion HCl AdvReac TIA Verified 06/22/20 23:10 [From Wellbutrin] steroids AdvReac INCREASED Uncoded 06/22/20 23:10 BLOOD SUGAR Review of Systems ROS Statement: Those systems with pertinent positive or pertinent negative responses have been documented in the HPI. ROS Other: All systems not noted in ROS Statement are negative. Past Medical History Past Medical History: CVA/TIA, Diabetes Mellitus Additional Past Medical History / Comment(s): bipolar, tia 2006, chronic lower back pain, dry skin, osteomyelitis History of Any Multi-Drug Resistant Organisms: None Reported Past Surgical History: Back Surgery, Section, Hysterectomy Additional Past Surgical History / Comment(s): Lumbar laminectomy followed by lumbar fusion with Dr. Fox, right carpal tunnel release Past Anesthesia/Blood Transfusion Reactions: No Reported Reaction Past Psychological History: Anxiety, Bipolar, Depression Past Alcohol Use History: None Reported Past Drug Use History: None Reported - Past Family History Father Family Medical History: Diabetes Mellitus, Hyperlipidemia, Hypertension Additional Family Medical History / Comment(s): retinopathy Mother Family Medical History: Hyperlipidemia, Hypertension, Myocardial Infarction (ID), Thyroid Disorder Additional Family Medical History / Comment(s): triple vessel cabg General Exam Limitations: altered mental status, physical limitation General appearance: lethargic Head exam: Present: atraumatic, normocephalic Eye exam: Present: normal appearance, PERRL, EOMI. Absent: scleral icterus, conjunctival injection, periorbital swelling ENT exam: Present: mucous membranes dry, other (ketotic breath) Neck exam: Present: normal inspection. Absent: tenderness, meningismus, lymphadenopathy Respiratory exam: Present: normal lung sounds bilaterally. Absent: respiratory distress, wheezes, rales, rhonchi, stridor Cardiovascular Exam: Present: normal rhythm, tachycardia GI/Abdominal exam: Present: soft, normal bowel sounds. Absent: distended, tenderness, guarding, rebound, rigid Extremities exam: Present: normal inspection, full ROM, normal capillary refill. Absent: tenderness, pedal edema, joint swelling, calf tenderness Back exam: Present: other (Well-healed midline incision with overlying Steri- Strips. No surrounding erythematous changes. No pustular drainage. No areas of fluctuance) Neurological exam: Present: altered Psychiatric exam: Present: flat affect Skin exam: Present: warm, dry, intact, normal color. Absent: rash Course Vital Signs 06/22/20 06/22/20 06/22/20 20:29 21:00 22:00 Temperature 97.7 F Pulse Rate 111 H 115 H Respiratory 16 18 18 Rate Blood Pressure 172/86 190/112 O2 Sat by Pulse 100 98 Oximetry 06/22/20 22:50 Temperature Pulse Rate 114 H Respiratory Rate Blood Pressure 161/63 O2 Sat by Pulse 97 Oximetry Medical Decision Making - Medical Decision Making Upon arrival the patient is promptly placed into room 6. A thorough history and physical exam was performed. Bedside Accu-Chek is performed and reads high. Patient does have a 12-lead EKG performed which demonstrates peaked T waves in leads V2 and V3. Because of concern for hyperkalemia, patient was given 10 units of insulin, 1 amp of bicarb, 2 g of calcium gluconate and is started on 3 L of fluid. Laboratory studies were conducted. The patient did go for a chest x-ray as well as a CT of her brain and a lumbar spine x-ray. Laboratories is remarkable for a white count of 46.2. Potassium 6.3. Carbon dioxide is less than 5. Glucose 852. Lactic acid 3.9. Troponin 0.474. C-reactive protein 439. TSH is 0.065 with a free T4 of 2.15. Urinalysis is positive for 4+) 3+ ketones. Acetone is positive. Chest x-ray demonstrates no acute findings. CT was performed of the patient's head is we could not rule out trauma when she left the house. It demonstrates cerebral atrophy with an old left posterior frontal lobe white matter lacunar infarct. Number spine demonstrates recent disc prosthesis surgery with no acute fracture. Old L2 compression fracture. Patient did have an Accu-Chek performed after the 3 L of fluid were administered and 10 units of insulin. Patient's blood sugar remains high. She is started on 8 units of insulin per hour through the IV. No bolus is administered. I discussed the results with the patient, her and her daughter. I did call discuss the case with Dr. Clifton who would be the admitted physician. There is concern about the patient's recent surgery and whether there is concern for postop infection because the patient's elevated white blood cell count. We do feel to the patient's best interest to transfer her to her facility where her surgery was recently performed and she does have a long-standing history of osteomyelitis. Patient's family does agree to this. She was given a dose of Rocephin and vancomycin prior to transport. We were unable to obtain blood cultures as the patient is a hard poke. Patient did have improvement in her heart rate or blood pressure remained stable. I did discuss the case with Dr. Chase who agreed to transfer the patient. [employer] forms were signed the patient is currently awaiting EMS for transfer - Lab Data Result diagrams: 06/22/20 21:29 06/22/20 21:29 Lab Results 06/22/20 06/22/20 06/22/20 Range/Units 21:01 21:29 21:29 WBC 46.2 H (3.8-10.6) k/uL RBC 3.50 L (3.80-5.40) m/uL Hgb 11.3 L (11.4-16.0) gm/dL Hct 41.1 (34.0-46.0) % MCV 117.5 H (80.0-100.0) fL MCH 32.3 (25.0-35.0) pg MCHC 27.5 L (31.0-37.0) g/dL RDW 12.9 (11.5-15.5) % Plt Count 752 H (150-450) k/uL Neutrophils % Not Reportable Neutrophils % (Manual) 84 % Band Neuts % (Manual) 6 % Lymphocytes % Not Reportable Lymphocytes % (Manual) 7 % Monocytes % Not Reportable Monocytes % (Manual) 4 % Eosinophils % Not Reportable Eosinophils % (Manual) 1 % Basophils % Not Reportable Metamyelocytes % 1 % Neutrophils # Not Reportable Neutrophils # (Manual) 41.50 H (1.3-7.7) k/uL Lymphocytes # Not Reportable Lymphocytes # (Manual) 3.23 (1.0-4.8) k/uL Monocytes # Not Reportable Monocytes # (Manual) 1.85 H (0-1.0) k/uL Eosinophils # Not Reportable Eosinophils # (Manual) 0.46 (0-0.7) k/uL Basophils # Not Reportable Metamyelocytes # (Man) 0.46 H (0) k/uL Nucleated RBCs 0 (0-0) /100 WBC Manual Slide Review Performed Toxic Granulation Present Toxic Vacuolation Present Hypochromasia Marked Macrocytosis Marked A PT 12.5 H (9.0-12.0) sec INR 1.2 H (<1.2) APTT 20.5 L (22.0-30.0) sec Sodium (137-145) mmol/L Potassium (3.5-5.1) mmol/L Chloride (98-107) mmol/L Carbon Dioxide (22-30) mmol/L Anion Gap mmol/L BUN (7-17) mg/dL Creatinine (0.52-1.04) mg/dL Est GFR (CKD-EPI)AfAm (>60 ml/min/1.73 sqM) Est GFR (CKD-EPI)NonAf (>60 ml/min/1.73 sqM) Glucose (74-99) mg/dL POC Glucose (mg/dL) >600 H (75-99) mg/dL POC Glu [employer] Robert Stephen Plasma Lactic Acid Davy (0.7-2.0) mmol/L Calcium (8.4-10.2) mg/dL Total Bilirubin (0.2-1.3) mg/dL AST (14-36) U/L ALT (4-34) U/L Alkaline Phosphatase (38-126) U/L Ammonia (<30) umol/L Troponin I (0.000-0.034) ng/mL C-Reactive Protein (<10.0) mg/L Total Protein (6.3-8.2) g/dL Albumin (3.5-5.0) g/dL Lipase (23-300) U/L TSH (0.465-4.680) mIU/L Free T4 (0.78-2.19) ng/dL Urine Color Urine Appearance (Clear) Urine pH (5.0-8.0) Ur Specific Clarence (1.001-1.035) Urine Protein (Negative) Urine Glucose (UA) (Negative) Urine Ketones (Negative) Urine Blood (Negative) Urine Nitrite (Negative) Urine Bilirubin (Negative) Urine Urobilinogen (<2.0) mg/dL Ur Leukocyte Esterase (Negative) Urine RBC (0-5) /hpf Urine WBC (0-5) /hpf Urine Mucus (None) /hpf Acetone, Qual (Negative) 06/22/20 06/22/20 06/22/20 Range/Units 21:29 21:29 21:29 WBC (3.8-10.6) k/uL RBC (3.80-5.40) m/uL Hgb (11.4-16.0) gm/dL Hct (34.0-46.0) % MCV (80.0-100.0) fL MCH (25.0-35.0) pg MCHC (31.0-37.0) g/dL RDW (11.5-15.5) % Plt Count (150-450) k/uL Neutrophils % Neutrophils % (Manual) % Band Neuts % (Manual) % Lymphocytes % Lymphocytes % (Manual) % Monocytes % Monocytes % (Manual) % Eosinophils % Eosinophils % (Manual) % Basophils % Metamyelocytes % % Neutrophils # Neutrophils # (Manual) (1.3-7.7) k/uL Lymphocytes # Lymphocytes # (Manual) (1.0-4.8) k/uL Monocytes # Monocytes # (Manual) (0-1.0) k/uL Eosinophils # Eosinophils # (Manual) (0-0.7) k/uL Basophils # Metamyelocytes # (Man) (0) k/uL Nucleated RBCs (0-0) /100 WBC Manual Slide Review Toxic Granulation Toxic Vacuolation Hypochromasia Macrocytosis PT (9.0-12.0) sec INR (<1.2) APTT (22.0-30.0) sec Sodium 146 H (137-145) mmol/L Potassium 6.3 H* (3.5-5.1) mmol/L Chloride 111 H (98-107) mmol/L Carbon Dioxide <5 L* (22-30) mmol/L Anion Gap mmol/L BUN 49 H (7-17) mg/dL Creatinine 1.44 H (0.52-1.04) mg/dL Est GFR (CKD-EPI)AfAm 46 (>60 ml/min/1.73 sqM) Est GFR (CKD-EPI)NonAf 40 (>60 ml/min/1.73 sqM) Glucose 852 H* (74-99) mg/dL POC Glucose (mg/dL) (75-99) mg/dL POC Glu Towboat Captain ID Plasma Lactic Acid Davy 3.9 H* (0.7-2.0) mmol/L Calcium 11.5 H (8.4-10.2) mg/dL Total Bilirubin 0.5 (0.2-1.3) mg/dL AST 24 (14-36) U/L ALT 19 (4-34) U/L Alkaline Phosphatase 208 H (38-126) U/L Ammonia 17 (<30) umol/L Troponin I (0.000-0.034) ng/mL C-Reactive Protein 439.7 H (<10.0) mg/L Total Protein 6.9 (6.3-8.2) g/dL Albumin 3.9 (3.5-5.0) g/dL Lipase <10 L (23-300) U/L TSH 0.065 L (0.465-4.680) mIU/L Free T4 2.15 (0.78-2.19) ng/dL Urine Color Light Yellow Urine Appearance Clear (Clear) Urine pH 5.0 (5.0-8.0) Ur Specific Clarence 1.020 (1.001-1.035) Urine Protein Trace H (Negative) Urine Glucose (UA) 4+ H (Negative) Urine Ketones 3+ H (Negative) Urine Blood Moderate H (Negative) Urine Nitrite Negative (Negative) Urine Bilirubin Negative (Negative) Urine Urobilinogen <2.0 (<2.0) mg/dL Ur Leukocyte Esterase Negative (Negative) Urine RBC <1 (0-5) /hpf Urine WBC 2 (0-5) /hpf Urine Mucus Rare H (None) /hpf Acetone, Qual Positive (Negative) 06/22/20 06/22/20 Range/Units 21:29 23:40 WBC (3.8-10.6) k/uL RBC (3.80-5.40) m/uL Hgb (11.4-16.0) gm/dL Hct (34.0-46.0) % MCV (80.0-100.0) fL MCH (25.0-35.0) pg MCHC (31.0-37.0) g/dL RDW (11.5-15.5) % Plt Count (150-450) k/uL Neutrophils % Neutrophils % (Manual) % Band Neuts % (Manual) % Lymphocytes % Lymphocytes % (Manual) % Monocytes % Monocytes % (Manual) % Eosinophils % Eosinophils % (Manual) % Basophils % Metamyelocytes % % Neutrophils # Neutrophils # (Manual) (1.3-7.7) k/uL Lymphocytes # Lymphocytes # (Manual) (1.0-4.8) k/uL Monocytes # Monocytes # (Manual) (0-1.0) k/uL Eosinophils # Eosinophils # (Manual) (0-0.7) k/uL Basophils # Metamyelocytes # (Man) (0) k/uL Nucleated RBCs (0-0) /100 WBC Manual Slide Review Toxic Granulation Toxic Vacuolation Hypochromasia Macrocytosis PT (9.0-12.0) sec INR (<1.2) APTT (22.0-30.0) sec Sodium (137-145) mmol/L Potassium (3.5-5.1) mmol/L Chloride (98-107) mmol/L Carbon Dioxide (22-30) mmol/L Anion Gap mmol/L BUN (7-17) mg/dL Creatinine (0.52-1.04) mg/dL Est GFR (CKD-EPI)AfAm (>60 ml/min/1.73 sqM) Est GFR (CKD-EPI)NonAf (>60 ml/min/1.73 sqM) Glucose (74-99) mg/dL POC Glucose (mg/dL) >600 H (75-99) mg/dL POC Glu [employer]boat Captain ID Arlene Perry Plasma Lactic Acid Davy (0.7-2.0) mmol/L Calcium (8.4-10.2) mg/dL Total Bilirubin (0.2-1.3) mg/dL AST (14-36) U/L ALT (4-34) U/L Alkaline Phosphatase (38-126) U/L Ammonia (<30) umol/L Troponin I 0.474 H* (0.000-0.034) ng/mL C-Reactive Protein (<10.0) mg/L Total Protein (6.3-8.2) g/dL Albumin (3.5-5.0) g/dL Lipase (23-300) U/L TSH (0.465-4.680) mIU/L Free T4 (0.78-2.19) ng/dL Urine Color Urine Appearance (Clear) Urine pH (5.0-8.0) Ur Specific Clarence (1.001-1.035) Urine Protein (Negative) Urine Glucose (UA) (Negative) Urine Ketones (Negative) Urine Blood (Negative) Urine Nitrite (Negative) Urine Bilirubin (Negative) Urine Urobilinogen (<2.0) mg/dL Ur Leukocyte Esterase (Negative) Urine RBC (0-5) /hpf Urine WBC (0-5) /hpf Urine Mucus (None) /hpf Acetone, Qual (Negative) - EKG Data EKG Comments: EKG demonstrates a sinus tachycardia with a ventricular rate of 116. WA interval 140. QRS 88. QTC of 472. Peaked T waves in the 3. No acute ST segment elevations Critical Care Time Critical Care Time: Yes Critical Care Time: 40 minutes Disposition Clinical Impression: DKA (diabetic ketoacidoses), Altered mental status, History of discitis Disposition: OTHER INSTITUTION NOT DEFINED Condition: Serious Is patient prescribed a controlled substance at d/c from ED?: No Referrals: Ricky Clifton MD [Primary Care Provider] - 1-2 days - Out of Hospital Transfer - Req. Specs Out of Hospital Transfer - Requested Specifics: Other Emergency Center ([facility]
[2020-06-22] MEDS ORDERED: INSULIN REGULAR 100 UNIT in SODIUM CHLORIDE 0.9% 100 ML IV SCH (23:30)
[2020-06-22 23:31] LABS: T4, Free (Free Thyroxine) 2.15 ng/dL (0.78-2.19)
[2020-06-22] MEDS ORDERED: cefTRIAXone IN SWFI 1,000 MG/10 ML SYRINGE IVP ONE (23:37)
[2020-06-22] MEDS ORDERED: VANCOMYCIN IV PER PHARMACY 1 EACH MISC MISCELLANE PRN (23:37)
[2020-06-22 23:41] LABS: Glucose,Whole Blood >600 mg/dL (75-99)
[2020-06-23 00:15] VITALS: PULSE 101
[2020-06-23 00:41] LABS: Glucose,Whole Blood >600 mg/dL (75-99)
[2020-06-23 00:43] VITALS: BP 130/58; RESP 16; TEMP 97.6
[2020-06-23] MEDS ORDERED: VANCOMYCIN 1,250 MG in SODIUM CHLORIDE 0.9% 250 ML IVPB ONE (01:00)
== END 2020-06-23 00:54 | disposition other institution (70) ==
LOC: EC 20:27
DX: E10.10 Type 1 diabetes mellitus with ketoacidosis without coma (principal); F41.9 Anxiety disorder, unspecified; F31.9 Bipolar disorder, unspecified; Z79.4 Long term (current) use of insulin; Z79.899 Other long term (current) drug therapy; Z88.5 Allergy status to narcotic agent; Z88.8 Allergy status to other drugs, medicaments and biological substances; Z87.81 Personal history of (healed) traumatic fracture; Z86.73 Personal history of transient ischemic attack (TIA), and cerebral infarction without residual deficits
CPT/HCPCS: 36415; 93005; 84439; 80053; 84443; 82140; 82009; 83605; 83690; 84484; 85025; 85610; 85730; 86140; 81001; 72100; 71046; 72125; 70450; 99291; 96365; 96375 ×3; 96361 ×2; J3010; J0610

== ENCOUNTER → 2021-01-29 | Outpatient (CLI) | payer MEDICARE | END | disposition home or self-care (01) | LOC: LABPAT 11:01 | PROVIDERS: ATTEND Orthopaedic Surgery | DX: Z01.812 Encounter for preprocedural laboratory examination (principal) | CPT/HCPCS: 87070 ==

== ENCOUNTER → 2021-10-11 | Outpatient (CLI) | payer MEDICARE ==
[2021-10-11 17:46] LABS: INR 0.9 (<1.2); Partial Thromboplastin Time 24.1 sec (22.0-30.0); Prothrombin Time 9.6 sec (9.0-12.0)
[2021-10-11 23:23] LABS: HCT 41.1 % (37.2-46.3); HGB 13.1 g/dL (12.0-15.0); MCH 31.7 pg (27.0-32.0); MCHC 31.9 g/dL (32.0-37.0); MCV 99.5 fL (80.0-97.0); Mean Platelet Volume 10.4 fL (9.5-12.2); Platelet Count 292 X 10*3/uL (140-440); RBC 4.13 X 10*6/uL (4.10-5.20); RDW 13.1 % (11.5-14.5); WBC 11.94 X 10*3/uL (4.50-10.00)
[2021-10-12 04:10] LABS: ALT 19 U/L (8-44); AST 21 U/L (13-35); African American GFR (CKD) 71.4 (60.0-200.0); Albumin 4.2 g/dL (3.8-4.9); Albumin/Globulin Ratio 1.45 (1.60-3.17); Alkaline Phosphatase 97 U/L (41-126); Blood Urea Nitrogen 22.8 mg/dL (9.0-27.0); Calcium 9.8 mg/dL (8.7-10.3); Carbon Dioxide 15.9 mmol/L (20.0-27.5); Chloride 101 mmol/L (96-109); Globulin 2.9 g/dL (1.6-3.3); Glucose 370 mg/dL (70-110); Non-African American GFR(CKD) 61.6 (60.0-200.0); Potassium 5.2 mmol/L (3.5-5.5); Sodium 138 mmol/L (135-145); Total Bilirubin <0.20 mg/dL (0.30-1.20); Total Protein 7.1 g/dL (6.2-8.2)
== END | disposition home or self-care (01) ==
LOC: LABPAT 16:33
PROVIDERS: ATTEND Orthopaedic Surgery
DX: Z01.812 Encounter for preprocedural laboratory examination (principal); M17.12 Unilateral primary osteoarthritis, left knee
CPT/HCPCS: 36415; 80053; 85027; 85610; 85730; 87070; 93005

== ENCOUNTER 2021-10-15 09:34 | Observation (INO) | payer MEDICARE ==
[2021-10-11 16:34] VITALS: BMI 28.1
[~2021-10-15 09:34] MED LIST: ACETAMINOPHEN TAB 500 MG TAB PO PRN; DEXAMETHASONE SOD PHOSPHATE 4 MG/ML 1 ML VIAL IV ONE; GABAPENTIN 300 MG CAP PO PRN; LIDOCAINE 1% (10MG/ML) FOR IV START INTRADERMA PRN; MELOXICAM 7.5 MG TAB PO PRN; MIDAZOLAM 2 MG/2 ML VIAL IV PRN; ONDANSETRON 4 MG/2 ML VIAL IVP PRN; TRANEXAMIC ACID 1,000 MG in SODIUM CHLORIDE 0.9% 100 ML IVPB PRN
[2021-10-15] MEDS: LACTATED RINGERS 1,000 ML IV SCH (09:51)
[2021-10-15] MEDS ORDERED: NALOXONE 0.4 MG/ML 1 ML VIAL IV PRN (10:05)
[2021-10-15] MEDS ORDERED: HYDROmorphone 1 MG/ML 1 ML SYRINGE IVP PRN (10:05)
[2021-10-15] MEDS ORDERED: NA PHOS,M-B/NA PHOS,DI-BA 133 ML ENEMA RECTAL PRN (10:05)
[2021-10-15] MEDS ORDERED: MAGNESIUM HYDROXIDE 2,400 MG/10 ML CUP PO PRN (10:05)
[2021-10-15] MEDS ORDERED: hydrOXYzine pamoate 25 MG CAP PO PRN (10:05)
[2021-10-15] MEDS ORDERED: ONDANSETRON 4 MG/2 ML VIAL IVP PRN (10:05)
[2021-10-15] MEDS ORDERED: bisacodyL 10 MG SUPP RECTAL PRN (10:05)
[2021-10-15] MEDS ORDERED: HYDROcodone/APAP 7.5-325MG 1 EACH TAB PO PRN (10:07)
[2021-10-15 10:34] LABS: Glucose,Whole Blood 132 mg/dL (75-99)
[2021-10-15] MEDS ORDERED: fentaNYL (PF) 50 MCG/ML 2 ML AMP IVP ONE ×2 (10:59→11:19)
[2021-10-15] MEDS ORDERED: MIDAZOLAM 2 MG/2 ML VIAL IVP ONE ×2 (10:59→11:19)
[2021-10-15] MEDS ORDERED: ceFAZolin 1,000 MG in SODIUM CHLORIDE 0.9% 1,000 ML IRRIGATION ONE (11:21)
[2021-10-15] MEDS ORDERED: MIDAZOLAM 2 MG/2 ML VIAL ONE (11:21)
[2021-10-15] MEDS ORDERED: SODIUM CHLORIDE 0.9% 100 ML BAG ONE (11:21)
[2021-10-15] MEDS ORDERED: fentaNYL (PF) 50 MCG/ML 2 ML AMP ONE (11:21)
[2021-10-15] MEDS ORDERED: SODIUM CHLORIDE 0.9% (PF) 10 ML VIAL ONE (11:21)
[2021-10-15] MEDS ORDERED: TRANEXAMIC ACID 1,000 MG/10 ML VIAL ONE (11:21)
[2021-10-15] MEDS ORDERED: hydrALAZINE HCL 20 MG/ML 1 ML VIAL ONE (11:21)
[2021-10-15] MEDS ORDERED: ROPIVACAINE 5 MG/ML 30 ML VIAL ONE (11:21)
[2021-10-15] MEDS ORDERED: LABETALOL 5 MG/ML VIAL MDV ONE (11:21)
--- NOTE | 2021-10-15 11:47 | P.ANPRN ---
Procedure Note - Anesthesia - Nerve Block Performed Right Adductor Canal Infusion Time Out Performed: Yes (1059) Date of Procedure: 10/15/21 Procedure Start Time: 11:00 Procedure Stop Time: 11:07 Location of Patient: PreOp Indication: Acute Post-Operative Pain, Requested by Surgeon Specifically requested for management of pain by DrReggie: Yohan Marshall Sedation Type: Sedate with meaningful contact maintained Preparation: Sterile Prep, Sterile Dressing Position: Supine Catheter Depth at Skin (cm): 9 Catheter: Indwelling Needle Types: Pajunk Needle Gauge: 18 Ultrasound used to visualize needle placement: Yes Ultrasound used to observe medication spread: Yes Injectate: 0.5% Ropivacaine (see comment for volume) (15cc + 5cc nacl pf) Blood Aspirated: No Pain Paresthesia on Injection Noted: No Resistance on Injection: Normal Image Stored and Saved: Yes Events: Uneventful and Well Tolerated
--- NOTE | 2021-10-15 11:49 | P.ANPRN ---
Procedure Note - Anesthesia - Nerve Block Performed Right iPack Single Time Out Performed: Yes (1059) Date of Procedure: 10/15/21 Procedure Start Time: : Procedure Stop Time: :11 Location of Patient: PreOp Indication: Acute Post-Operative Pain, Requested by Surgeon Specifically requested for management of pain by DrReggie: Yohan Marshall Sedation Type: Sedate with meaningful contact maintained Preparation: Sterile Prep Position: Supine Catheter: None Needle Types: Pajunk Needle Gauge: 21 Ultrasound used to visualize needle placement: Yes Ultrasound used to observe medication spread: Yes Injectate: 0.5% Ropivacaine (see comment for volume) (15cc + 5cc nacl pf) Blood Aspirated: No Pain Paresthesia on Injection Noted: No Resistance on Injection: Normal Image Stored and Saved: Yes Events: Uneventful and Well Tolerated
[2021-10-15] MEDS ORDERED: LACTATED RINGERS 1,000 ML IV ONE (12:44)
--- NOTE | 2021-10-15 12:47 | P.OP ---
Date of Procedure: 10/15/21 Preoperative Diagnosis: Severe osteoarthritis right knee Postoperative Diagnosis: Severe osteoarthritis right knee Procedure(s) Performed: Right total knee arthroplasty Implants: Carbone & Nephew Journey II CR Oxinium cruciate retaining femoral component size 5, right Carbone [employer] Nephew Journey nonporous tibial baseplate size 4, right Carbone [employer] Nephew Journey II, XLPE Deep Dished articular insert, size 9 mm, Size 3- 4, right Carbone [employer] Nephew Journey Octavia II resurfacing patellar component, oval, 32 mm All components were cemented using Palacos R bone cement The articulation is Oxinium on polyethylene Anesthesia: spinal Surgeon: Yohan Masrhall Aix System Administrator #1: Diandra Blevins Aix System Administrator #2: Maria L Dougherty Estimated Blood Loss (ml): 100 Pathology: other (Bone and cartilage) Condition: stable Disposition: PACU Indications for Procedure: After failure of conservative treatment we discussed the surgical and nonsurgical treatment options at length. Patient wishes to proceed with a total knee arthroplasty. Complications specific to this procedure were discussed at length, including but not limited to infection, bleeding, stiffness, and nerve injury. Covid-19 was also discussed at length with the patient, and they are aware of the current policies and procedures. The patient was given the option of delaying surgery, but they elect to proceed knowing these risks. Patient is aware of all these complications and informed consent was obtained Operative Findings: The operative findings are consistent with severe osteoarthritis of the right knee Description of Procedure: Patient was seen in the preoperative area and the consent was reviewed and the operative site was marked with a skin marker. The patient verified the proc edure and the operative site. An adductor canal pain catheter and an iPACK block was placed by anesthesia in the preoperative area. The patient was then brought to the operating room and given preoperative antibiotics intravenously. A gram of transexamic acid was given intravenously. A spinal anesthetic was administered by the anesthesia department. A tourniquet was placed on the upper thigh and the lower extremity was prepped with chlorhexidine and draped in usual sterile fashion. A universal timeout was then performed which confirmed the patient's name, surgical site, ALLERGIES, and consent. The lower extremity was then exsanguinated and tourniquet was inflated to 250 mmHg. A standard anterior midline approach to the knee was performed. The skin and subcutaneous tissue were sharply dissected down to the patellar tendon. A medial parapatellar arthrotomy was then performed. The knee was then extended, the patellar was everted, and the knee was again flexed. The infra-patellar fat pad was removed in order to enhance exposure. The anterior horns of both menisci were excised, and a release was performed to the posterior medial aspect of the knee. On gross visual inspection, there was complete loss of articular cartilage in the medial and patellofemoral joint spaces. There was also significant cartilage damage in the lateral compartment. There were multiple periarticular osteophytes globally about the knee which were then removed with a Ronguer. The femoral canal was then opened with the 9.5 mm intramedullary drill. The 8 mm intramedullary pina was then inserted into the femoral canal with the distal femoral cutting guide set for 5 of valgus. The distal femoral cutting block was then pinned in place. The intramedullary pina was then removed, and the distal femur was then cut. The cutting block was then removed and the cut was checked for symmetry. The resected bone was then measured to confirm the appropriate distal femoral resection. Next, the sizing guide was then placed and set for 3 external rotation based off of the epicondylar axis and Whitesides line. Pins were then placed and the drill holes, and the femur was sized with the sizing stylus. The pins were then removed, and the sizing guide was then removed. The spikes of the femoral block was then placed into the predrilled holes, and malleted into place. Two 45 mm pins were then placed into the fixation holes on the cutting block. An symone wing was then used to ensure there would be no notching with the anterior cut. The anterior condyles were cut without notching. The anterior chord cut was then performed, followed by the posterior cut, posterior chamfer cut, and the anterior chamfer cut. The collateral ligaments were protected during the entire process. The cutting block was then removed. Any remaining bone and osteophytes were removed from the femur with a Rominger. The femoral canal was plugged with autologous bone. Attention was then directed to the tibia. The remaining ACL was removed with a Ronguer, and the tibia was then gently subluxed forward with a large bent knee retractor. Any remaining menisci were excised. The posterior lateral corner was cauterized in order to coagulate the lateral geniculate artery. The extra medullary tibial cutting guide was then placed, set for the appropriate rotation, slope, and depth of resection. The proximal tibia cutting guide was then pinned in place. Proximal tibia was then cut and sized. The femoral trial was placed. A narrow saw blade was then used to remove the anterior intracondylar femoral bone. The CR notch trial was then placed. The tibial trial was placed with the appropriate-sized insert. The knee was able to fully extend and flex to 130 and was stable throughout all range of motion. The knee was then extended and the patella was everted. Patella was then measured, and then using an osteotomy guide, the patella was cut at the appropriate level. The patella was then measured and drilled and the patella trial was then placed. The knee was then taken through range of motion with the patella trial and the patella tracked normally using the no thumbs technique.. The knee was then extended patella trial was then removed and the patella was everted. Knee was then flexed and lug holes were drilled through the femoral trial and the femoral trial was then removed. The tibial was then re-exposed, and the tibial broach guide was then pinned in place after it was set for the appropriate rotation to allow for the most coverage without overhang. The tibia was then reamed and broached. The cut surfaces of bone were then irrigated with pulsatile lavage. The knee was also irrigated with Irrisept solution. The components were then opened, the cement was mixed, and the components were then cemented in place. The cement was allowed to harden with the knee in full extension. After the cemented hardened. The tourniquet was released, and hemostasis was obtained. A second gram of transexamic acid was given intravenously. The knee was again irrigated. The knee was again taken through range of motion and found to be stable throughout all range of motion of 0-130, and the patella tracked normally. The fascia was then closed with 0 Vicryl followed by #2 strata fix suture. The subcutaneous tissue was closed with 3-0 Vicryl and 3-0 strata fix. Exofin glue was used for the skin and placed with the knee in flexion. After the glue had dried, and Optafoam silver impregnated dressing was applied. The patient was then transferred to recovery room in stable condition. The assistants ABBY Snowden, and ABBY Lugo was required due the complexity surgery and the need for a skilled rn medical surgical. She assisted in positioning, draping, retraction, and closure of the wound.
[2021-10-15] MEDS ORDERED: ROPIVACAINE 0.2%-NS ON-Q PUMP 1,090 MG, EMPTY PAIN BALL 1 EACH MISCELLANE PRN (13:21)
[2021-10-15] MEDS ORDERED: hydrALAZINE HCL 20 MG/ML 1 ML VIAL IVP ONE (13:51)
[2021-10-15] MEDS: HYDROmorphone 0.5 MG/0.5 ML SYRINGE IVP PRN ×2 (14:05→15:20)
--- NOTE | 2021-10-15 14:11 | XR ---
EXAMINATION TYPE: XR knee limited RT DATE OF EXAM: 10/15/2021 CLINICAL HISTORY: Right knee pain and arthritis status post total knee replacement. TECHNIQUE: Portable AP and crosstable lateral views of the right knee are obtained immediately posto peratively. COMPARISON: Right Leg x-ray June 07, 2012 FINDINGS: Kiana osseous structures are demineralized. Metallic hardware from total right knee arthro plasty is seen and appears satisfactory in alignment and position. There is evidence of recent surge ry with diffuse subcutaneous gas and soft tissue swelling noted. IMPRESSION: METALLIC HARDWARE FROM TOTAL RIGHT KNEE ARTHROPLASTY IS SATISFACTORY IN ALIGNMENT.
[2021-10-15] MEDS ORDERED: diphenhydrAMINE 50 MG/ML 1 ML VIAL IVP ONE (15:48)
[2021-10-15] MEDS: SODIUM CHLORIDE 0.9% 1,000 ML IV SCH (16:19)
[2021-10-15 16:33] LABS: Glucose,Whole Blood 182 mg/dL (75-99)
[2021-10-15] MEDS: HYDROcodone/APAP 7.5-325MG 1 EACH TAB PO PRN ×2 (16:35→22:31)
[2021-10-15] MEDS ORDERED: LORazepam 1 MG TAB PO PRN (17:03)
[2021-10-15] MEDS: HYDROmorphone 1 MG/ML 1 ML SYRINGE IVP PRN (18:27)
[2021-10-15] MEDS: cloNIDine HCL 0.1 MG TAB PO PRN (18:27)
[2021-10-15 20:46] LABS: Glucose,Whole Blood 303 mg/dL (75-99)
[2021-10-15] MEDS: ASPIRIN 325 MG TAB PO SCH (20:52)
[2021-10-15] MEDS: INSULIN DETEMIR (LEVEMIR) 100 UNIT/ML SYR SQ SCH (20:53)
[2021-10-15] MEDS: lamoTRIgine 100 MG TAB PO SCH (20:54)
[2021-10-15] MEDS: SENNOSIDES-DOCUSATE SODIUM 1 EACH TAB PO SCH (20:54)
[2021-10-15] MEDS: GABAPENTIN 400 MG CAP PO SCH (20:54)
[2021-10-15] MEDS: QUEtiapine 100 MG TAB PO SCH (20:54)
--- NOTE | 2021-10-15 22:23 | P.CONS ---
History of Present Illness - Reason for Consult Consult date: 10/15/21 medical management, post right total knee arthroplasty. Requesting physician: Yohan Marshall - Chief Complaint post right total knee arthroplasty, chronic pain syndrome, bipolar disorder - History of Present Illness HISTORY OF PRESENT ILLNESS 61-year-old female one of for office patient with past medical history off type 2 diabetes on insulin, chronic history of back pain with chronic pain syndrome, history of anxiety and bipolar disorders along with a chronic depression, history of sleep apnea on CPAP on regular basis. Patient had severe osteoarthritis worsening of the right knee and had failed conservative management including synovectomies injection and steroid injection lately. Patient was seen Dr. Marshall in the office after failure to conservative management was referred to be clear for right total knee arthroplasty. Patient apparently had seen his fleet salesperson as well and no major finding or abnormality on testing. Patient was clear for surgery and up going for right total knee arthroplasty successfully with no major complication. Patient medication resume and she is on multi medication for pain management muscle relaxer with try to start any of her medicine would not interact with any inpatient medication at this point. Patient is resting comfortably in her chair still not totally clear at this point but able to answer most of her question properly. Still complaining of mild pain despite having epidural this point. REVIEW OF SYSTEMS Constitutional: No fever, no chills, no night sweats. no weight change with positive generalized weakness fatigue lethargy and sleepiness. EENT: No headache. No blurred vision or double vision, no loss of vision. No loss of Hearing, no ringing in the ears, no dizziness. No nasal drainage or congestion. No epistaxis. No sore throat. Lungs: No shortness of breath, cough, no sputum production. No wheezing. Cardiovascular: No chest pain, no lower extremity edema. No palpitations. No paroxysmal nocturnal dyspnea. No orthopnea. No lightheadedness or dizziness. No syncopal episodes. Abdominal: No abdominal pain. No nausea, vomiting. No diarrhea. No constipation. No bloody or tarry stools.. No loss of appetite. Genitourinary: No dysuria, increased frequency, urgency. No urinary retention. Musculoskeletal: generalized arthralgia and myalgia with generalized lower back pain and thoracic pain as well. Integumentary: No wounds, no lesions. No rash or pruritus. No unusual bruising. No change in hair or nails. Neurologic: No aphasia. No facial droop. No change in mentation. No head injury. No headache. No paralysis. No paresthesia. Psychiatric: positive depression and anxiety attacks along with mood swings. Endocrine: No abnormal blood sugars. No weight change. No excessive sweating or thirst. No cold intolerance. SOCIAL HISTORY smoke 1 pack a day for more than 20 years, no alcohol abuse, patient is not using any marijuana or any street drugs. FAMILY HISTORY she lives at home with her daughter she has family history of myocardial infarction in her mother post triple bypass surgery, history of type 2 diabetes in her father as well and siblings. PHYSICAL EXAMINATION Gen: This is 61-year-old is resting comfortably in bed slightly bit restless specially leaning more toward the right side. HEENT: Head is atraumatic, normocephalic. Pupils equal, round. Sclerae is anicteric. NECK: Supple. No JVD. No lymphadenopathy. No thyromegaly. LUNGS: Clear to auscultation. No wheezes or rhonchi. No intercostal retractions. HEART: Regular rate and rhythm. No murmur. ABDOMEN: Soft. Bowel sounds are present. No masses. No tenderness. EXTREMITIES: right knee still been wrap with Justin wrap no sign of bleeding she still able to wiggle her toes with no sign of dropping foot no edema. NEUROLOGICAL: Patient is awake, alert and oriented x3. Cranial nerves 2 through 12 are grossly intact. ASSESSMENT AND PLAN 1.post right total knee arthroplasty: Stable after surgery resume home meds, watch patient hemodynamic status continued to control her pain. 2 chronic pain syndrome: Has been seen pain management didn't prescribe Percocet along with fentanyl and gabapentin. 3 significantly high blood pressure, resume home meds which is losartan 50 mg a day, add clonidine 0.1 mg every 6 hour for systolic above 140. 4 type 2 diabetes on insulin: Resume Lantus at 17 units twice a day continue Accu-Chek with sliding scales coverage. 5 hyperlipidemia: Remain on Crestor 10 mg a day. 6 chronic neuropathy: Has been on gabapentin 800 mg 3 times a day. 7 chronic depression and bipolar: Has been on Lamictal 150 mg at bedtime, Seroquel 300 mg daily at bedtime, lorazepam 1 mg 4 times a day as needed and Abilify 10 mg daily. 8 history of seizure: Has been on Keppra in the past she is not taking it lately she still on lorazepam on as needed basis. 9 GI prophylaxis: Patient will be on Pepcid 20 mg daily. 10 DVT prophylaxis: Patient be on full size of aspirin, if remain on hospital longer 24 hours we will add Lovenox 40 mg subcutaneous daily. 11. COVID-[address] Marshall thank you much for the consult psych can be any further help to please let me know. Past Medical History Past Medical History: CVA/TIA, Diabetes Mellitus, Hyperlipidemia, Hypertension, Musculoskeletal Disorder, Osteoarthritis (OA), Sleep Apnea/CPAP/BIPAP Additional Past Medical History / Comment(s): bipolar, tia 2006, chronic lower back pain, dry skin, osteomyelitis, West Nile, supposed to use CPAP, left foot drop from prior back surgery History of Any Multi-Drug Resistant Organisms: None Reported Past Surgical History: Back Surgery, Section, Hysterectomy, Orthopedic Surgery Additional Past Surgical History / Comment(s): Lumbar laminectomy, then lumbar fusion x2, right carpal tunnel release Past Anesthesia/Blood Transfusion Reactions: Previous Problems w/ Anesthesia Additional Past Anesthesia/Blood Transfusion Reaction / Comm: slow to come out, very agitated Past Psychological History: Anxiety, Bipolar, Depression Additional Psychological History / Comment(s): started smoking at ge 17 smokes 1 ppd.. Patient denies any medical marijuana, marijuana, street drug or alcohol use. Patient lives at home and her 23-year-old daughter lives with her who has just graduated from nursing school. There are 2 dogs in the home. She denies any recent travel. Patient is on a medical prison due to the chronic back pain. 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 Smoking Status: Former smoker Past Alcohol Use History: None Reported Additional Past Alcohol Use History / Comment(s): quit smoking 2 yrs. ago, smoked since teens<ppd Past Drug Use History: None Reported - Past Family History Father Family Medical History: Diabetes Mellitus, Hyperlipidemia, Hypertension Additional Family Medical History / Comment(s): retinopathy Mother Family Medical History: Hyperlipidemia, Hypertension, Myocardial Infarction ([place]), Thyroid Disorder Additional Family Medical History / Comment(s): triple vessel cabg Medications and Allergies Home Medications Medication Instructions Recorded Confirmed Type LORazepam [Ativan] 1 mg PO QID PRN 05/29/16 10/15/21 History Hydrocodone/Acetaminophen [[place] 1 tab PO QID PRN 07/28/18 10/15/21 History 10-325] Ibuprofen [Motrin] 800 mg PO TID PRN 07/28/18 10/15/21 History QUEtiapine [SEROquel] 300 mg PO HS 07/28/18 10/15/21 History lamoTRIgine [LaMICtal] 150 mg PO HS 07/28/18 10/15/21 History methocarbamoL [Robaxin] 750 mg PO Q6H PRN 07/28/18 10/15/21 History Gabapentin 800 mg PO TID 06/22/20 10/15/21 History Insulin Aspart [NovoLOG Flexpen] See Protocol SQ ACHS 06/22/20 10/15/21 History Insulin Glargine,Hum.rec.anlog 17 unit SQ BID 06/22/20 10/15/21 History [Lantus Solostar] fentaNYL 50MCG/HR PATCH [Duragesic 1 patch TRANSDERM Q72H 06/22/20 10/15/21 History 50MCG/HR] ARIPiprazole [Abilify] 10 mg PO DAILY 10/11/21 10/15/21 History Aspirin 325 mg PO DAILY 10/11/21 10/15/21 History Losartan Potassium [Cozaar] 50 mg PO DAILY 10/11/21 10/15/21 History Rosuvastatin [Crestor] 10 mg PO DAILY 10/11/21 10/15/21 History Aspirin 325 mg PO BID #60 tab 10/15/21 Rx HYDROcodone/APAP 7.5-325MG [[place] 1 - 2 tab PO Q6H PRN #32 tab 10/15/21 Rx 7.5-325] Sennosides [Senokot] 2 tab PO DAILY PRN #60 tablet 10/15/21 Rx Allergies Allergy/AdvReac Type Severity Reaction Status Date / Time codeine Allergy Unknown Verified 10/15/21 09:54 bupropion HCl AdvReac TIA Verified 10/15/21 09:54 [From Wellbutrin] steroids AdvReac INCREASED Uncoded 10/15/21 09:54 BLOOD SUGAR Physical Exam Vitals: Vital Signs Temp Pulse Pulse Resp BP Pulse Ox 10/15/21 18:34 91 179/91 96 10/15/21 17:54 192/104 10/15/21 17:24 171/87 10/15/21 17:09 93 177/97 95 10/15/21 16:39 90 185/93 95 10/15/21 16:24 86 196/85 96 10/15/21 15:45 76 16 178/90 99 10/15/21 15:15 82 16 166/77 99 10/15/21 14:45 80 16 172/77 99 10/15/21 14:30 80 16 151/74 99 10/15/21 14:17 77 16 158/75 99 10/15/21 14:00 77 16 170/84 99 10/15/21 13:45 76 16 181/82 99 10/15/21 13:34 155/72 10/15/21 13:30 75 16 191/114 99 10/15/21 13:12 98.1 F 78 16 195/82 98 10/15/21 11:13 84 16 194/87 98 10/15/21 10:38 81 18 206/93 98 10/15/21 10:25 198/102 10/15/21 10:10 98.6 F 80 18 95 Intake and Output 10/15/21 10/15/21 10/15/21 06:59 14:59 22:59 Intake Total 751 480 Output Total 100 Balance 651 480 Intake: IV 751 Oral 480 Output: Estimated Blood Loss 100 Other: # Voids 0 Weight 93.8 kg 93.8 kg Results Labs: Abnormal Lab Results - Last 24 Hours (Table) 10/15/21 10/15/21 10/15/21 Range/Units 10:28 16:31 20:41 POC Glucose (mg/dL) 132 H 182 H 303 H (75-99) mg/dL
[2021-10-16] MEDS: SODIUM CHLORIDE 0.9% 1,000 ML IV SCH ×3 (02:11→22:45)
[2021-10-16] MEDS: cloNIDine HCL 0.1 MG TAB PO PRN (02:21)
[2021-10-16] MEDS: LACTATED RINGERS 1,000 ML IV SCH ×2 (03:59→22:45)
[2021-10-16] MEDS: HYDROcodone/APAP 7.5-325MG 1 EACH TAB PO PRN ×4 (04:47→20:45)
[2021-10-16 07:19] LABS: Glucose,Whole Blood 326 mg/dL (75-99)
[2021-10-16] MEDS: HYDROmorphone 1 MG/ML 1 ML SYRINGE IVP PRN ×3 (07:45→17:45)
[2021-10-16] MEDS: GABAPENTIN 400 MG CAP PO SCH ×3 (07:45→20:46)
[2021-10-16] MEDS: ATORVASTATIN 20 MG TAB PO SCH (07:46)
[2021-10-16] MEDS: ASPIRIN 325 MG TAB PO SCH ×2 (07:46→20:47)
[2021-10-16] MEDS: MELOXICAM 7.5 MG TAB PO SCH (07:46)
[2021-10-16] MEDS: LOSARTAN 50 MG TAB PO SCH (07:46)
[2021-10-16] MEDS: INSULIN DETEMIR (LEVEMIR) 100 UNIT/ML SYR SQ SCH ×2 (07:46→20:48)
[2021-10-16] MEDS: ARIPiprazole 10 MG TAB PO SCH (07:47)
--- NOTE | 2021-10-16 07:47 | P.PN ---
Progress Note - Text Progress Note Date: 10/16/21 (647) Anesthesiology Postop day 1 status post total knee arthroplasty with adductor canal catheter. Patient doing well. VAS 7 out of 10. Gross strength intact in lower extremity. Afebrile. Denies alterations in sensorium. Catheter site intact. Heart regular rate Lungs nonlabored Abdomen nondistended Assessment: Postop day 1 status post total knee arthroplasty with adductor canal catheter Plan: All questions answered. Maintain catheter 2 more days with patient removal at home. Instructions were given at discharge.
[2021-10-16 10:15] LABS: Basophils # (A) 0.02 X 10*3/uL (0.00-0.10); Basophils % (A) 0.2 %; Eosinophils # (A) 0 X 10*3/uL (0.04-0.35); Eosinophils % (A) 0 %; HCT 34.3 % (37.2-46.3); HGB 10.7 g/dL (12.0-15.0); Immature Grans, Automated 0.3 %; Lymphocytes # (A) 1.15 X 10*3/uL (0.90-5.00); Lymphocytes % (A) 9.8 %; MCH 31.2 pg (27.0-32.0); MCHC 31.2 g/dL (32.0-37.0); Mean Platelet Volume 10.1 fL (9.5-12.2); Monocytes # (A) 1.04 X 10*3/uL (0.20-1.00); Monocytes % (A) 8.9 %; NRBC Per 100 WBC 0 /100 WBCS (0.0-0.0); Neutrophils # (A) 9.44 X 10*3/uL (1.80-7.70); Neutrophils % (A) 80.8 %; Platelet Count 314 X 10*3/uL (140-440); RBC 3.43 X 10*6/uL (4.10-5.20); RDW 13.6 % (11.5-14.5); WBC 11.69 X 10*3/uL (4.50-10.00)
--- NOTE | 2021-10-16 11:05 | P.PN ---
Subjective Progress Note Date: 10/16/21 Principal diagnosis: Primary osteoarthritis right knee. Status post total right knee arthroplasty. This is a 61-year-old female who is postop day #1 status post total knee arthroplasty. She is having increased pain management issues today. She is awaiting rehabilitation placement. She has no other complaints or concerns today. Vital signs are stable. She is afebrile. Objective - Vital Signs Vital signs: Vital Signs Temp 99.4 F 10/16/21 07:53 Pulse 104 H 10/16/21 07:53 Resp 14 10/16/21 07:53 BP 161/81 10/16/21 07:53 Pulse Ox 92 L 10/16/21 08:19 Intake & Output 10/15/21 10/16/21 10/16/21 18:59 06:59 18:59 Intake Total 1231 Output Total 100 Balance 1131 Weight 93.8 kg Intake: IV 751 Oral 480 Output: Estimated Blood Loss 100 Other: Voiding Method Bedside Commode # Voids 0 5 # Bowel Movements 1 - Exam This is a pleasant 61-year-old female in no acute distress. She is alert and oriented 3. Exam of the right knee reveals her dressing is clean, dry and intact. She has full ankle motion without difficulty or pain. No calf pain with palpation. Neurovascular status to the lower extremity is intact. - Labs CBC & Chem 7: 10/16/21 05:11 Labs: Abnormal Lab Results - Last 24 Hours (Table) 10/15/21 10/15/21 10/16/21 Range/Units 16:31 20:41 05:11 WBC 11.69 H (4.50-10.00) X 10*3/uL RBC 3.43 L (4.10-5.20) X 10*6/uL Hgb 10.7 L (12.0-15.0) g/dL Hct 34.3 L (37.2-46.3) % MCV 100.0 H (80.0-97.0) fL MCHC 31.2 L (32.0-37.0) g/dL Neutrophils # 9.44 H (1.80-7.70) X 10*3/uL Monocytes # 1.04 H (0.20-1.00) X 10*3/uL Eosinophils # 0 L (0.04-0.35) X 10*3/uL POC Glucose (mg/dL) 182 H 303 H (75-99) mg/dL 10/16/21 Range/Units 07:18 WBC (4.50-10.00) X 10*3/uL RBC (4.10-5.20) X 10*6/uL Hgb (12.0-15.0) g/dL Hct (37.2-46.3) % MCV (80.0-97.0) fL MCHC (32.0-37.0) g/dL Neutrophils # (1.80-7.70) X 10*3/uL Monocytes # (0.20-1.00) X 10*3/uL Eosinophils # (0.04-0.35) X 10*3/uL POC Glucose (mg/dL) 326 H (75-99) mg/dL Assessment and Plan (1) Primary osteoarthritis of right knee Current Visit: Yes Status: Acute Code(s): M17.11 - UNILATERAL PRIMARY OSTEOARTHRITIS, RIGHT KNEE SNOMED Code(s): 775172083846521 (2) Status post total right knee replacement Current Visit: Yes Status: Acute Code(s): Z96.651 - PRESENCE OF RIGHT ARTIFICIAL KNEE JOINT SNOMED Code(s): 7918515916346 Plan: The clinical findings are discussed with the patient. We are waiting transfer to inpatient rehabilitation and cleared medically and she has better pain management. Possible discharge to rehabilitation tomorrow.
[2021-10-16 11:18] LABS: Glucose,Whole Blood 308 mg/dL (75-99)
--- NOTE | 2021-10-16 12:33 | P.PN ---
Subjective Progress Note Date: 10/16/21 HISTORY OF PRESENT ILLNESS 61-year-old female one of for office patient with past medical history off type 2 diabetes on insulin, chronic history of back pain with chronic pain syndrome, history of anxiety and bipolar disorders along with a chronic depression, history of sleep apnea on CPAP on regular basis. Patient had severe osteoarthritis worsening of the right knee and had failed conservative management including synovectomies injection and steroid injection lately. Pat jamari was seen Dr. Marshall in the office after failure to conservative management was referred to be clear for right total knee arthroplasty. Patient apparently had seen his increment manager as well and no major finding or abnormality on testing. Patient was clear for surgery and up going for right total knee arthroplasty successfully with no major complication. Patient medication resume and she is on multi medication for pain management muscle relaxer with try to start any of her medicine would not interact with any inpatient medication at this point. Patient is resting comfortably in her chair still not totally clear at this point but able to answer most of her question properly. Still complaining of mild pain despite having epidural this point. 10/16: She was seen today postop day #1. She still gets that she slept okay last night. She is complaining of being extremely sore. She has been up to the bathroom with assistance. She will be continued on fentanyl patch which she states is due to be changed today. She also has adductor canal catheter in place for pain control. Patient has been afebrile, heart rate 104, blood pressure 161/81, pulse ox 92% on room air. Blood work reveals WBC 11.6, hemoglobin 10.7, platelet count 314. Blood sugars are running in the 300s. Patient started on NovoLog scale as well as NovoLog 6 units scheduled with meals and at bedtime and continued on Levemir at her home dose. Patient is requesting to go to rehab and asking for [facility]. Social work has been updated in making arrangements. REVIEW OF SYSTEMS Constitutional: No fever, no chills, no night sweats. no weight change with denies weakness fatigue lethargy and denies sleepiness. EENT: No headache. No blurred vision or double vision, no loss of vision. No loss of Hearing, no ringing in the ears, no dizziness. No nasal drainage or congestion. No epistaxis. No sore throat. Lungs: No shortness of breath, cough, no sputum production. No wheezing. Cardiovascular: No chest pain, no lower extremity edema. No palpitations. No paroxysmal nocturnal dyspnea. No orthopnea. No lightheadedness or dizziness. No syncopal episodes. Abdominal: No abdominal pain. No nausea, vomiting. No diarrhea. No constipation. No bloody or tarry stools.. No loss of appetite. Genitourinary: No dysuria, increased frequency, urgency. No urinary retention. Musculoskeletal: generalized arthralgia and myalgia with generalized lower back pain and thoracic pain as well. Reports right knee pain. Integumentary: No wounds, no lesions. No rash or pruritus. No unusual bruising. No change in hair or nails. Neurologic: No aphasia. No facial droop. No change in mentation. No head injury. No headache. No paralysis. No paresthesia. Psychiatric: positive depression and anxiety attacks along with mood swings. Endocrine: No abnormal blood sugars. No weight change. No excessive sweating or thirst. No cold intolerance. PHYSICAL EXAMINATION Gen: This is 61-year-old is resting comfortably in bed slightly bit restless specially leaning more toward the right side. HEENT: Head is atraumatic, normocephalic. Pupils equal, round. Sclerae is anicteric. NECK: Supple. No JVD. No lymphadenopathy. No thyromegaly. LUNGS: Clear to auscultation. No wheezes or rhonchi. No intercostal retractions. HEART: Regular rate and rhythm. No murmur. ABDOMEN: Soft. Bowel sounds are present. No masses. No tenderness. EXTREMITIES: No lower extremity edema, dorsalis pedis +2 bilaterally, small dressing in place to the right knee with no breakthrough bleeding or drainage. NEUROLOGICAL: Patient is awake, alert and oriented x3. Cranial nerves 2 through 12 are grossly intact. ASSESSMENT AND PLAN 1.post right total knee arthroplasty, 10/15: Stable after surgery resume home meds, watch patient hemodynamic status continued to control her pain. 2 chronic pain syndrome: Has been seen pain management didn't prescribe Percocet along with fentanyl and gabapentin. Patient resumed on her home pain medications. 3 significantly high blood pressure, resume home meds which is losartan 50 mg a day, add clonidine 0.1 mg every 6 hour for systolic above 140. Elevated blood pressure most likely related to pain 4 type 2 diabetes on insulin, hyperglycemia secondary to steroids. Resume Lantus at 17 units twice a day continue Accu-Chek with sliding scales coverage and add 6 units with meals and at bedtime. 5 hyperlipidemia: Remain on Crestor 10 mg a day. 6 chronic neuropathy: Has been on gabapentin 800 mg 3 times a day. 7 chronic depression and bipolar: Has been on Lamictal 150 mg at bedtime, Seroquel 300 mg daily at bedtime, lorazepam 1 mg 4 times a day as needed and Abilify 10 mg daily. 8 history of seizure: Has been on Keppra in the past she is not taking it lately she still on lorazepam on as needed basis. 9 GI prophylaxis: Patient will be on Pepcid 20 mg daily. 10 DVT prophylaxis: Patient be on full size of aspirin, if remain on hospital longer 24 hours we will add Lovenox 40 mg subcutaneous daily. 11. COVID-19 testing Was negative. DISCHARGE PLAN [facility] Impression and plan of care have been directed as dictated by the signing physician. Margy Ovalle nurse practitioner acting as scribe for signing physician. Objective - Vital Signs Vital signs: Vital Signs Temp 99.4 F 10/16/21 07:53 Pulse 104 H 10/16/21 07:53 Resp 14 10/16/21 07:53 BP 161/81 10/16/21 07:53 Pulse Ox 92 L 10/16/21 08:19 Intake & Output 10/15/21 10/16/21 10/16/21 18:59 06:59 18:59 Intake Total 1231 Output Total 100 Balance 1131 Weight 93.8 kg Intake: IV 751 Oral 480 Output: Estimated Blood Loss 100 Other: Voiding Method Bedside Commode # Voids 0 5 # Bowel Movements 1 - Labs CBC & Chem 7: 10/16/21 05:11 Labs: Abnormal Lab Results - Last 24 Hours (Table) 10/15/21 10/15/21 10/15/21 Range/Units 10:28 16:31 20:41 POC Glucose (mg/dL) 132 H 182 H 303 H (75-99) mg/dL 10/16/21 Range/Units 07:18 POC Glucose (mg/dL) 326 H (75-99) mg/dL
[2021-10-16] MEDS: INSULIN ASPART (NovoLOG) 100 UNIT/ML VIAL SQ SCH ×6 (12:53→20:48)
[2021-10-16 16:25] LABS: Glucose,Whole Blood 137 mg/dL (75-99)
[2021-10-16] MEDS: methocarbamoL 750 MG TAB PO PRN ×2 (17:08→20:47)
[2021-10-16 20:34] LABS: Glucose,Whole Blood 78 mg/dL (75-99)
[2021-10-16] MEDS: QUEtiapine 100 MG TAB PO SCH (20:46)
[2021-10-16] MEDS: SENNOSIDES-DOCUSATE SODIUM 1 EACH TAB PO SCH (20:47)
[2021-10-16] MEDS: lamoTRIgine 100 MG TAB PO SCH (20:47)
[2021-10-17 02:17] LABS: Glucose,Whole Blood 190 mg/dL (75-99)
[2021-10-17] MEDS: cloNIDine HCL 0.1 MG TAB PO PRN ×2 (04:42→21:23)
[2021-10-17] MEDS: HYDROcodone/APAP 7.5-325MG 1 EACH TAB PO PRN ×4 (04:42→23:14)
[2021-10-17 06:52] LABS: Glucose,Whole Blood 247 mg/dL (75-99)
[2021-10-17] MEDS: MELOXICAM 7.5 MG TAB PO SCH (08:05)
[2021-10-17] MEDS: GABAPENTIN 400 MG CAP PO SCH ×3 (08:05→21:24)
[2021-10-17] MEDS: ASPIRIN 325 MG TAB PO SCH ×2 (08:05→21:23)
[2021-10-17] MEDS: ATORVASTATIN 20 MG TAB PO SCH (08:05)
[2021-10-17] MEDS: LOSARTAN 50 MG TAB PO SCH (08:05)
[2021-10-17] MEDS: ARIPiprazole 10 MG TAB PO SCH (08:05)
[2021-10-17] MEDS: INSULIN DETEMIR (LEVEMIR) 100 UNIT/ML SYR SQ SCH ×2 (08:06→21:22)
[2021-10-17] MEDS: INSULIN ASPART (NovoLOG) 100 UNIT/ML VIAL SQ SCH ×8 (08:06→21:21)
[2021-10-17] MEDS: methocarbamoL 750 MG TAB PO PRN ×3 (08:43→21:43)
--- NOTE | 2021-10-17 09:05 | P.DS ---
Providers Expected date of discharge: 10/17/21 Attending physician: Yohan Marshall Consults: 10/15/21 10:05 Consult Physician Routine Consulting Provider: Christiano Garcai Reason/Comments: medical management Do you want consulting provider notified?: Yes Primary care physician: Beulah Browno - Discharge Diagnosis(es) (1) Primary osteoarthritis of right knee Current Visit: Yes Status: Acute (2) Status post total right knee replacement Current Visit: Yes Status: Acute Hospital Course: This is a 61-year-old female with known history of degenerative arthritis of the right knee. The patient presented for evaluation as an outpatient. After dis cussion and consideration patient elects to proceed with total knee arthroplasty. The patient is seen preoperatively by Dr. Marshall and medically cleared for surgery by their primary care physician. Patient is admitted to [facility] on 10/15/2021 for total knee arthroplasty. The procedure is performed without complication or sequelae. The patient is doing well postoperatively. Labs and vital signs are stable on day of discharge. On day of discharge patient's knee incision is healing well. There is minimal erythema. There is no drainage noted at this time. There is minimal soft tissue swelling to the knee. Patient has full foot and ankle motion without difficulty or pain. Calf is soft and nontender to palpation. Neurovascular status to the right lower extremity is intact. Patient is discharged to rehab in good condition. Please see med rec for accurate list of home medications. Patient Condition at Discharge: Good Plan - Discharge Summary Discharge Rx Participant: Yes New Discharge Prescriptions: New Aspirin 325 mg PO BID #60 tab INSULIN ASPART (NovoLOG) [NovoLOG (formulary)] 3 unit SQ ACHS ml INSULIN ASPART (NovoLOG) [NovoLOG (formulary)] 0 unit SQ ACHS ml HYDROcodone/APAP 10-325MG [Campbell 10-325] 1 tab PO Q6HR PRN 3 Days #12 tab PRN Reason: Pain HYDROcodone/APAP 7.5-325MG [Campbell 7.5-325] 1 - 2 tab PO Q6H PRN #32 tab PRN Reason: Pain Sennosides-Docusate Sodium [Senokot-S] 2 each PO HS tab cloNIDine HCL [Catapres] 0.1 mg PO QID PRN #30 tab PRN Reason: high blood pressure Continue methocarbamoL [Robaxin] 750 mg PO Q6H PRN PRN Reason: Muscle Spasm Ibuprofen [Motrin] 800 mg PO TID PRN PRN Reason: Pain QUEtiapine [SEROquel] 300 mg PO HS lamoTRIgine [LaMICtal] 150 mg PO HS Insulin Glargine,Hum.rec.anlog [Lantus Solostar Pen] 17 unit SQ BID LORazepam [Ativan] 1 mg PO QID PRN #12 tab PRN Reason: Anxiety Gabapentin 800 mg PO TID #9 tab ARIPiprazole [Abilify] 10 mg PO DAILY Rosuvastatin [Crestor] 10 mg PO DAILY Losartan Potassium [Cozaar] 50 mg PO DAILY fentaNYL 50MCG/HR PATCH [Duragesic 50MCG/HR] 1 patch TRANSDERM Q72H #1 patch Discontinued Hydrocodone/Acetaminophen [Campbell 10-325] 1 tab PO QID PRN PRN Reason: Pain Insulin Aspart [NovoLOG Flexpen] See Protocol SQ ACHS Aspirin 325 mg PO DAILY Discharge Medication List Ibuprofen [Motrin] 800 mg PO TID PRN 07/28/18 [History] QUEtiapine [SEROquel] 300 mg PO HS 07/28/18 [History] lamoTRIgine [LaMICtal] 150 mg PO HS 07/28/18 [History] methocarbamoL [Robaxin] 750 mg PO Q6H PRN 07/28/18 [History] Insulin Glargine,Hum.rec.anlog [Lantus Solostar Pen] 17 unit SQ BID 06/22/20 [History] ARIPiprazole [Abilify] 10 mg PO DAILY 10/11/21 [History] Losartan Potassium [Cozaar] 50 mg PO DAILY 10/11/21 [History] Rosuvastatin [Crestor] 10 mg PO DAILY 10/11/21 [History] Aspirin 325 mg PO BID #60 tab 10/15/21 [Rx] HYDROcodone/APAP 7.5-325MG [Campbell 7.5-325] 1 - 2 tab PO Q6H PRN #32 tab 10/15/21 [Rx] Gabapentin 800 mg PO TID #9 tab 10/16/21 [Rx] LORazepam [Ativan] 1 mg PO QID PRN #12 tab 10/16/21 [Rx] Sennosides-Docusate Sodium [Senokot-S] 2 each PO HS tab 10/16/21 [Rx] fentaNYL 50MCG/HR PATCH [Duragesic 50MCG/HR] 1 patch TRANSDERM Q72H #1 patch 10/16/21 [Rx] HYDROcodone/APAP 10-325MG [Campbell 10-325] 1 tab PO Q6HR PRN 3 Days #12 tab 10/17/21 [Rx] INSULIN ASPART (NovoLOG) [NovoLOG (formulary)] 0 unit SQ ACHS ml 10/17/21 [Rx] INSULIN ASPART (NovoLOG) [NovoLOG (formulary)] 3 unit SQ ACHS ml 10/17/21 [Rx] cloNIDine HCL [Catapres] 0.1 mg PO QID PRN #30 tab 10/17/21 [Rx] Follow up Appointment(s)/Referral(s): Shalonda Mahan, [NON-STAFF] - As Needed Yohan Marshall DO [Doctor of Osteopathic Medicine] - 11/01/21 9:00 am Activity/Diet/Wound Care/Special Instructions: Weightbearing as tolerated with a walker. CPM 5-6h daily as tolerated. Leave dressing intact. Dressing may be removed by home care nurse or by patient in 7 days. Then change dressing twice daily until follow up. May shower with initial dressing intact and after removal. If dressing become saturated, please remove. Recommend use of compression stockings daily until follow up to help prevent swe lling and blood clots. May remove at night before sleeping. Please take aspirin 325mg twice daily for 30 days to prevent blood clots. Please follow up with [facility] and call with any questions or concerns, . Discharge Disposition: TRANSFER TO SNF/ECF
[2021-10-17] MEDS ORDERED: LOSARTAN 50 MG TAB PO STA (11:43)
--- NOTE | 2021-10-17 11:45 | P.PN ---
Subjective Progress Note Date: 10/17/21 HISTORY OF PRESENT ILLNESS 61-year-old female one of for office patient with past medical history off type 2 diabetes on insulin, chronic history of back pain with chronic pain syndrome, history of anxiety and bipolar disorders along with a chronic depression, history of sleep apnea on CPAP on regular basis. Patient had severe osteoarthritis worsening of the right knee and had failed conservative management including synovectomies injection and steroid injection lately. Pat jamari was seen Dr. Marshall in the office after failure to conservative management was referred to be clear for right total knee arthroplasty. Patient apparently had seen his piping designer as well and no major finding or abnormality on testing. Patient was clear for surgery and up going for right total knee arthroplasty successfully with no major complication. Patient medication resume and she is on multi medication for pain management muscle relaxer with try to start any of her medicine would not interact with any inpatient medication at this point. Patient is resting comfortably in her chair still not totally clear at this point but able to answer most of her question properly. Still complaining of mild pain despite having epidural this point. 10/16: She was seen today postop day #1. She still gets that she slept okay last night. She is complaining of being extremely sore. She has been up to the bathroom with assistance. She will be continued on fentanyl patch which she states is due to be changed today. She also has adductor canal catheter in place for pain control. Patient has been afebrile, heart rate 104, blood pressure 161/81, pulse ox 92% on room air. Blood work reveals WBC 11.6, hemoglobin 10.7, platelet count 314. Blood sugars are running in the 300s. Patient started on NovoLog scale as well as NovoLog 6 units scheduled with meals and at bedtime and continued on Levemir at her home dose. Patient is requesting to go to rehab and asking for [facility]. Social work has been updated in making arrangements. 10/17: Patient is seen today sitting up in the recliner. She is continuing to complain of pain. Q pump dosing was increased last night. Patient known to have dried blood on her dressing in orthopedics for follow-up. Patient has been afebrile, heart rate 103, blood pressure 187/86, pulse ox 92% on room air. Capillary blood glucose running between 78 and 247. Losartan increased 100 mg daily. Medication has been reviewed for discharge in case patient is cleared by orthopedics. REVIEW OF SYSTEMS Constitutional: No fever, no chills, no night sweats. no weight change with denies weakness fatigue lethargy and denies sleepiness. EENT: No headache. No blurred vision or double vision, no loss of vision. No loss of Hearing, no ringing in the ears, no dizziness. No nasal drainage or congestion. No epistaxis. No sore throat. Lungs: No shortness of breath, cough, no sputum production. No wheezing. Cardiovascular: No chest pain, no lower extremity edema. No palpitations. No paroxysmal nocturnal dyspnea. No orthopnea. No lightheadedness or dizziness. No syncopal episodes. Abdominal: No abdominal pain. No nausea, vomiting. No diarrhea. No constipation. No bloody or tarry stools.. No loss of appetite. Genitourinary: No dysuria, increased frequency, urgency. No urinary retention. Musculoskeletal: generalized arthralgia and myalgia with generalized lower back pain and thoracic pain as well. Reports right knee pain. Integumentary: No wounds, no lesions. No rash or pruritus. No unusual bruising . No change in hair or nails. Neurologic: No aphasia. No facial droop. No change in mentation. No head injury. No headache. No paralysis. No paresthesia. Psychiatric: positive depression and anxiety attacks along with mood swings. Endocrine: Noted abnormal blood sugars. No weight change. No excessive sweating or thirst. No cold intolerance. PHYSICAL EXAMINATION Gen: This is 61-year-old is resting comfortably in bed slightly bit restless specially leaning more toward the right side. HEENT: Head is atraumatic, normocephalic. Pupils equal, round. Sclerae is anict dwain. NECK: Supple. No JVD. No lymphadenopathy. No thyromegaly. LUNGS: Clear to auscultation. No wheezes or rhonchi. No intercostal retractions. HEART: Regular rate and rhythm. No murmur. ABDOMEN: Soft. Bowel sounds are present. No masses. No tenderness. EXTREMITIES: No lower extremity edema, dorsalis pedis +2 bilaterally, small dressing in place to the right knee with dried blood. NEUROLOGICAL: Patient is awake, alert and oriented x3. Cranial nerves 2 through 12 are grossly intact. ASSESSMENT AND PLAN 1.post right total knee arthroplasty, 10/15: Stable after surgery resume home meds, watch patient hemodynamic status continued to control her pain. 2 chronic pain syndrome: Has been seen pain management didn't prescribe Percocet along with fentanyl and gabapentin. Patient resumed on her home pain medications. 3 hypertension. Increase losartan to 100 mg daily, continue clonidine as needed. 4 type 2 diabetes on insulin, hyperglycemia secondary to steroids. Resume Lantus at 17 units twice a day continue Accu-Chek with sliding scales coverage and add 6 units with meals and at bedtime. 5 hyperlipidemia: Remain on Crestor 10 mg a day. 6 chronic neuropathy: Has been on gabapentin 800 mg 3 times a day. 7 chronic depression and bipolar: Has been on Lamictal 150 mg at bedtime, Seroquel 300 mg daily at bedtime, lorazepam 1 mg 4 times a day as needed and Abilify 10 mg daily. 8 history of seizure: Has been on Keppra in the past she is not taking it lately she still on lorazepam on as needed basis. 9 GI prophylaxis: Patient will be on Pepcid 20 mg daily. 10 DVT prophylaxis: Patient be on full size of aspirin, if remain on hospital longer 24 hours we will add Lovenox 40 mg subcutaneous daily. 11. COVID-19 testing Was negative. DISCHARGE PLAN [facility] on Thursday Impression and plan of care have been directed as dictated by the signing physician. Margy Ovalle nurse practitioner acting as scribe for signing physi milton. Objective - Vital Signs Vital signs: Vital Signs Temp 98.0 F 10/17/21 07:57 Pulse 103 H 10/17/21 07:57 Resp 18 10/17/21 07:57 BP 187/86 10/17/21 07:57 Pulse Ox 92 L 10/17/21 07:57 Intake & Output 10/16/21 10/17/21 10/17/21 18:59 06:59 18:59 Other: Voiding Method Bedside Commode # Voids 4 5 - Labs CBC & Chem 7: 10/16/21 05:11 Labs: Abnormal Lab Results - Last 24 Hours (Table) 10/16/21 10/16/21 10/16/21 Range/Units 05:11 11:16 16:23 WBC 11.69 H (4.50-10.00) X 10*3/uL RBC 3.43 L (4.10-5.20) X 10*6/uL Hgb 10.7 L (12.0-15.0) g/dL Hct 34.3 L (37.2-46.3) % MCV 100.0 H (80.0-97.0) fL MCHC 31.2 L (32.0-37.0) g/dL Neutrophils # 9.44 H (1.80-7.70) X 10*3/uL Monocytes # 1.04 H (0.20-1.00) X 10*3/uL Eosinophils # 0 L (0.04-0.35) X 10*3/uL POC Glucose (mg/dL) 308 H 137 H (75-99) mg/dL 10/17/21 10/17/21 Range/Units 02:11 06:50 WBC (4.50-10.00) X 10*3/uL RBC (4.10-5.20) X 10*6/uL Hgb (12.0-15.0) g/dL Hct (37.2-46.3) % MCV (80.0-97.0) fL MCHC (32.0-37.0) g/dL Neutrophils # (1.80-7.70) X 10*3/uL Monocytes # (0.20-1.00) X 10*3/uL Eosinophils # (0.04-0.35) X 10*3/uL POC Glucose (mg/dL) 190 H 247 H (75-99) mg/dL
[2021-10-17 12:06] LABS: Glucose,Whole Blood 201 mg/dL (75-99)
[2021-10-17 16:27] LABS: Glucose,Whole Blood 287 mg/dL (75-99)
[2021-10-17 20:53] LABS: Glucose,Whole Blood 169 mg/dL (75-99)
[2021-10-17] MEDS: SENNOSIDES-DOCUSATE SODIUM 1 EACH TAB PO SCH (21:23)
[2021-10-17] MEDS: lamoTRIgine 100 MG TAB PO SCH (21:23)
[2021-10-17] MEDS: QUEtiapine 100 MG TAB PO SCH (21:24)
[2021-10-17 23:21] LABS: Glucose,Whole Blood 230 mg/dL (75-99)
[2021-10-18 06:46] LABS: Glucose,Whole Blood 111 mg/dL (75-99)
[2021-10-18] MEDS: MELOXICAM 7.5 MG TAB PO SCH (07:23)
[2021-10-18] MEDS: ASPIRIN 325 MG TAB PO SCH (07:23)
[2021-10-18] MEDS: GABAPENTIN 400 MG CAP PO SCH (07:23)
[2021-10-18] MEDS: HYDROcodone/APAP 7.5-325MG 1 EACH TAB PO PRN (07:24)
[2021-10-18] MEDS: ARIPiprazole 10 MG TAB PO SCH (07:25)
[2021-10-18] MEDS: ATORVASTATIN 20 MG TAB PO SCH (07:25)
[2021-10-18] MEDS: INSULIN DETEMIR (LEVEMIR) 100 UNIT/ML SYR SQ SCH (07:25)
[2021-10-18] MEDS: INSULIN ASPART (NovoLOG) 100 UNIT/ML VIAL SQ SCH ×2 (07:55)
[2021-10-18 08:22] VITALS: BP 169/67; PULSE 89; RESP 17; TEMP 98.9
[2021-10-18] MEDS: methocarbamoL 750 MG TAB PO PRN (08:51)
[2021-10-18] MEDS ORDERED: LOSARTAN 50 MG TAB PO SCH (09:00)
[2021-10-18 09:28] LABS: Basophils # (A) 0.02 X 10*3/uL (0.00-0.10); Basophils % (A) 0.2 %; Eosinophils # (A) 0.13 X 10*3/uL (0.04-0.35); Eosinophils % (A) 1.4 %; HCT 30.1 % (37.2-46.3); HGB 9.4 g/dL (12.0-15.0); Immature Grans, Automated 0.3 %; Lymphocytes % (A) 29.8 %; MCH 31.6 pg (27.0-32.0); MCHC 31.2 g/dL (32.0-37.0); MCV 101.3 fL (80.0-97.0); Mean Platelet Volume 9.8 fL (9.5-12.2); Monocytes # (A) 0.77 X 10*3/uL (0.20-1.00); Monocytes % (A) 8.2 %; NRBC Per 100 WBC 0 /100 WBCS (0.0-0.0); Neutrophils # (A) 5.66 X 10*3/uL (1.80-7.70); Neutrophils % (A) 60.1 %; Platelet Count 288 X 10*3/uL (140-440); RBC 2.97 X 10*6/uL (4.10-5.20); RDW 13.7 % (11.5-14.5); WBC 9.41 X 10*3/uL (4.50-10.00)
--- NOTE | 2021-10-18 10:34 | P.PN ---
Subjective Progress Note Date: 10/18/21 HISTORY OF PRESENT ILLNESS 61-year-old female one of for office patient with past medical history off type 2 diabetes on insulin, chronic history of back pain with chronic pain syndrome, history of anxiety and bipolar disorders along with a chronic depression, history of sleep apnea on CPAP on regular basis. Patient had severe osteoarthritis worsening of the right knee and had failed conservative management including synovectomies injection and steroid injection lately. Pat jamari was seen Dr. Marshall in the office after failure to conservative management was referred to be clear for right total knee arthroplasty. Patient apparently had seen his loan operations specialist as well and no major finding or abnormality on testing. Patient was clear for surgery and up going for right total knee arthroplasty successfully with no major complication. Patient medication resume and she is on multi medication for pain management muscle relaxer with try to start any of her medicine would not interact with any inpatient medication at this point. Patient is resting comfortably in her chair still not totally clear at this point but able to answer most of her question properly. Still complaining of mild pain despite having epidural this point. 10/16: She was seen today postop day #1. She still gets that she slept okay last night. She is complaining of being extremely sore. She has been up to the bathroom with assistance. She will be continued on fentanyl patch which she states is due to be changed today. She also has adductor canal catheter in place for pain control. Patient has been afebrile, heart rate 104, blood pressure 161/81, pulse ox 92% on room air. Blood work reveals WBC 11.6, hemoglobin 10.7, platelet count 314. Blood sugars are running in the 300s. Patient started on NovoLog scale as well as NovoLog 6 units scheduled with meals and at bedtime and continued on Levemir at her home dose. Patient is requesting to go to rehab and asking for [place]. Social work has been updated in making arrangements. 10/17: Patient is seen today sitting up in the recliner. She is continuing to complain of pain. Q pump dosing was increased last night. Patient known to have dried blood on her dressing in orthopedics for follow-up. Patient has been afebrile, heart rate 103, blood pressure 187/86, pulse ox 92% on room air. Capillary blood glucose running between 78 and 247. Losartan increased 100 mg daily. Medication has been reviewed for discharge in case patient is cleared by orthopedics. 10/18: Patient had dressing changed last evening she believes. Drainage has stopped. Patient is very concerned about pain management and is concerned that she will not be able to give Robaxin. Robaxin has been ordered for the snf and will be available. Patient also has Robaxin available here. We have provided prescriptions for her home dose of [place] 10 and orthopedics has given a prescription for [place] 7.5 one to 2 tablets every 6 hours as needed. She is continued on fentanyl patch. Pain control should be manageable at [facility]. Patient has been afebrile, heart rate 89, blood pressure 169/67, pulse ox 95% on room air. Losartan was increased yesterday which will be continued at the snf at the higher dose. REVIEW OF SYSTEMS Constitutional: No fever, no chills, no night sweats. no weight change with den ies weakness fatigue lethargy and denies sleepiness. EENT: No headache. No blurred vision or double vision, no loss of vision. No loss of Hearing, no ringing in the ears, no dizziness. No nasal drainage or congestion. No epistaxis. No sore throat. Lungs: No shortness of breath, cough, no sputum production. No wheezing. Cardiovascular: No chest pain, no lower extremity edema. No palpitations. No paroxysmal nocturnal dyspnea. No orthopnea. No lightheadedness or dizziness. No syncopal episodes. Abdominal: No abdominal pain. No nausea, vomiting. No diarrhea. No constipation. No bloody or tarry stools.. No loss of appetite. Genitourinary: No dysuria, increased frequency, urgency. No urinary retention. Musculoskeletal: generalized arthralgia and myalgia with generalized lower back pain and thoracic pain as well. Reports right knee pain. Integumentary: surgical wounds, no lesions. No rash or pruritus. No unusual bruising. No change in hair or nails. Neurologic: No aphasia. No facial droop. No change in mentation. No head injury. No headache. No paralysis. No paresthesia. Psychiatric: positive depression and anxiety attacks along with mood swings. Endocrine: Noted abnormal blood sugars. No weight change. No excessive sweating or thirst. No cold intolerance. PHYSICAL EXAMINATION Gen: This is 61-year-old is resting comfortably in bed slightly bit restless specially leaning more toward the right side. HEENT: Head is atraumatic, normocephalic. Pupils equal, round. Sclerae is anicteric. NECK: Supple. No JVD. No lymphadenopathy. No thyromegaly. LUNGS: Clear to auscultation. No wheezes or rhonchi. No intercostal retractions. HEART: Regular rate and rhythm. No murmur. ABDOMEN: Soft. Bowel sounds are present. No masses. No tenderness. EXTREMITIES: No lower extremity edema, dorsalis pedis +2 bilaterally, small dressing in place to the right knee. Active bleeding.. NEUROLOGICAL: Patient is awake, alert and oriented x3. Cranial nerves 2 through 12 are grossly intact. ASSESSMENT AND PLAN 1.post right total knee arthroplasty, 10/15: Stable after surgery resume home meds, watch patient hemodynamic status continued to control her pain. Patient cleared for discharge to [facility] 2 chronic pain syndrome: Has been seen pain management didn't prescribe Percocet along with fentanyl and gabapentin. Patient resumed on her home pain medications. 3 hypertension. Continue losartan to 100 mg daily, continue clonidine as needed. 4 type 2 diabetes on insulin, hyperglycemia secondary to steroids. Resume Lantus at 17 units twice a day continue Accu-Chek with sliding scales coverage and add 6 units with meals and at bedtime. 5 hyperlipidemia: Remain on Crestor 10 mg a day. 6 chronic neuropathy: Has been on gabapentin 800 mg 3 times a day. 7 chronic depression and bipolar: Has been on Lamictal 150 mg at bedtime, Seroquel 300 mg daily at bedtime, lorazepam 1 mg 4 times a day as needed and Abilify 10 mg daily. 8 history of seizure: Has been on Keppra in the past she is not taking it lately she still on lorazepam on as needed basis. 9 GI prophylaxis: Patient will be on Pepcid 20 mg daily. 10 DVT prophylaxis: Patient be on full size of aspirin, if remain on hospital longer 24 hours we will add Lovenox 40 mg subcutaneous daily. 11. COVID-19 testing Was negative. DISCHARGE PLAN [facility] on Thursday Impression and plan of care have been directed as dictated by the signing physician. Margy Ovalle nurse practitioner acting as scribe for signing physician. Objective - Vital Signs Vital signs: Vital Signs Temp 98.9 F 10/18/21 07:36 Pulse 89 10/18/21 07:36 Resp 17 10/18/21 07:36 BP 169/67 10/18/21 07:36 Pulse Ox 95 10/18/21 07:36 Intake & Output 10/17/21 10/18/21 10/18/21 18:59 06:59 18:59 Other: Voiding Method Bedside Commode Toilet Bedside Commode # Voids 4 2 - Labs CBC & Chem 7: 10/18/21 06:50 Labs: Abnormal Lab Results - Last 24 Hours (Table) 10/17/21 10/17/21 10/17/21 Range/Units 12:05 16:22 20:35 POC Glucose (mg/dL) 201 H 287 H 169 H (75-99) mg/dL 10/17/21 10/18/21 Range/Units 23:19 06:44 POC Glucose (mg/dL) 230 H 111 H (75-99) mg/dL
== END 2021-10-18 11:18 ==
LOC: OR 09:34 → 4SSUR 13:08 → OR 10-17 11:34 → 4SSUR 10-17 11:42
PROVIDERS: ADMIT Orthopaedic Surgery; ATTEND Orthopaedic Surgery
DX: M17.11 Unilateral primary osteoarthritis, right knee (principal); G89.4 Chronic pain syndrome; F31.9 Bipolar disorder, unspecified; F41.9 Anxiety disorder, unspecified; E78.5 Hyperlipidemia, unspecified; I10 Essential (primary) hypertension; E11.65 Type 2 diabetes mellitus with hyperglycemia; E11.40 Type 2 diabetes mellitus with diabetic neuropathy, unspecified; G62.9 Polyneuropathy, unspecified; R56.9 Unspecified convulsions; M54.50 Low back pain, unspecified; T38.0X5A Adverse effect of glucocorticoids and synthetic analogues, initial encounter; L85.3 Xerosis cutis; M21.372 Foot drop, left foot; G47.33 Obstructive sleep apnea (adult) (pediatric); Z20.822 Contact with and (suspected) exposure to COVID-19; Z86.73 Personal history of transient ischemic attack (TIA), and cerebral infarction without residual deficits; Z86.19 Personal history of other infectious and parasitic diseases; Z87.891 Personal history of nicotine dependence; Z98.1 Arthrodesis status; Z90.710 Acquired absence of both cervix and uterus; Z79.899 Other long term (current) drug therapy; Z79.4 Long term (current) use of insulin; Z79.82 Long term (current) use of aspirin; Z88.5 Allergy status to narcotic agent; Z88.8 Allergy status to other drugs, medicaments and biological substances; Z91.19 Patient's noncompliance with other medical treatment and regimen; Z82.49 Family history of ischemic heart disease and other diseases of the circulatory system; Z83.3 Family history of diabetes mellitus; Z83.518 Family history of other specified eye disorder; Z83.49 Family history of other endocrine, nutritional and metabolic diseases; Z83.438 Family history of other disorder of lipoprotein metabolism and other lipidemia; Z81.8 Family history of other mental and behavioral disorders
CPT/HCPCS: 27447; 94760 ×2; 97116 ×2; 97161; 97530; 97535 ×2; 97166; 64999; 64448; 76942; 85025 ×2; 88300; 87635; 73560; G0378 ×2; C1713; C1776; J2250; J0360; J1200; J1100; J0690 ×3; J2405; J3010; J1170 ×3; J2795 ×2

== ENCOUNTER 2023-01-24 13:09 | Observation (INO) | payer MEDICARE ==
--- NOTE | 2023-01-24 13:21 | ED ---
General Adult HPI - General Chief complaint: Neuro Symptoms/Deficit Stated complaint: Slurred speech Time Seen by Provider: 01/24/23 13:18 Source: patient Mode of arrival: wheelchair Limitations: no limitations - History of Present Illness Initial comments: Patient presents to the ED complaining of having "slurred speech" since she awoke at about 6:30-7 AM this morning. Patient states that she went to bed at about 11 PM last night without any slurred speech or symptoms. Patient states that her blood glucose reading was in the 60s when she checked it this morning, so she ate some toast and drink some juice. Patient states that her blood glucose improved to the 200s, but she states that her slurred speech persists. Patient is currently being treated for foot osteomyelitis, and she states that she received IV antibiotic infusion treatment in the hospital today, then came to the ED for evaluation of her slurred speech. Patient denies medication overdose, drug abuse, alcohol abuse, any pain, fever or chills, headache, focal numbness/weakness/neuro deficit, visual changes, chest pain, dyspnea, cough or cold symptoms, palpitations, dizziness, abdominal pain, nausea/vomiting/diarrhea, bloody or melanotic stool, dysuria or urinary symptoms, or any other symptoms or complaints. Patient's blood glucose was checked upon arrival to the ED, and a reading of 159 was obtained. Code stroke was activated. - Related Data Home Medications Medication Instructions Recorded Confirmed Insulin Glargine,Hum.rec.anlog 35 unit SQ HS 06/22/20 01/24/23 [Lantus Solostar Pen] ARIPiprazole [Abilify] 10 mg PO DAILY 10/11/21 01/24/23 Atorvastatin [Lipitor] 20 mg PO HS 01/24/23 01/24/23 Furosemide [Lasix] 40 mg PO BID 01/24/23 01/24/23 HYDROcodone/APAP 10-325MG [[place] 1 tab PO QID PRN 01/24/23 01/24/23 10-325] Insulin Aspart [NovoLOG Flexpen] 7 units SQ AC-BID@0900,1300 01/24/23 01/24/23 Insulin Aspart [NovoLOG Flexpen] 9 units SQ AC-SUPPER 01/24/23 01/24/23 Insulin Aspart [NovoLOG Flexpen] See Protocol SQ AC-TID 01/24/23 01/24/23 LORazepam [Ativan] 1 mg PO TID PRN 01/24/23 01/24/23 Potassium Chloride ER [K-Dur 20] 20 meq PO BID 01/24/23 01/24/23 Pregabalin [Lyrica] 300 mg PO BID 01/24/23 01/24/23 QUEtiapine FUMARATE [SEROquel] 300 mg PO HS 01/24/23 01/24/23 buPROPion XL [Wellbutrin XL] 300 mg PO DAILY 01/24/23 01/24/23 hydrALAZINE HCL [Apresoline] 100 mg PO TID 01/24/23 01/24/23 lamoTRIgine [LaMICtal] 150 mg PO DAILY 01/24/23 01/24/23 lisinopriL [Prinivil] 20 mg PO DAILY 01/24/23 01/24/23 Allergies Allergy/AdvReac Type Severity Reaction Status Date / Time codeine Allergy Unknown Verified 01/24/23 15:12 steroids AdvReac INCREASED Uncoded 01/24/23 15:12 BLOOD SUGAR Review of Systems ROS Statement: Those systems with pertinent positive or pertinent negative responses have been documented in the HPI. ROS Other: All systems not noted in ROS Statement are negative. Past Medical History Past Medical History: CVA/TIA, Diabetes Mellitus, Hyperlipidemia, Hypertension, Musculoskeletal Disorder, Osteoarthritis (OA), Sleep Apnea/CPAP/BIPAP Additional Past Medical History / Comment(s): bipolar, tia 2006, chronic lower back pain, dry skin, osteomyelitis, West Nile, supposed to use CPAP, left foot drop from prior back surgery, History of Any Multi-Drug Resistant Organisms: None Reported Past Surgical History: Back Surgery, Section, Hysterectomy, Orthopedic Surgery Additional Past Surgical History / Comment(s): Lumbar laminectomy, then lumbar fusion x2, right carpal tunnel release Past Anesthesia/Blood Transfusion Reactions: Previous Problems w/ Anesthesia Additional Past Anesthesia/Blood Transfusion Reaction / Comment(s): slow to come out, very agitated Past Psychological History: Anxiety, Bipolar, Depression Smoking Status: Former smoker Past Alcohol Use History: None Reported Past Drug Use History: None Reported - Past Family History Father Family Medical History: Diabetes Mellitus, Hyperlipidemia, Hypertension Additional Family Medical History / Comment(s): retinopathy Mother Family Medical History: Hyperlipidemia, Hypertension, Myocardial Infarction ([place]), Thyroid Disorder Additional Family Medical History / Comment(s): triple vessel cabg General Exam Limitations: no limitations General appearance: alert, in no apparent distress Head exam: Present: atraumatic, normocephalic Eye exam: Present: normal appearance, PERRL, EOMI ENT exam: Present: mucous membranes moist Neck exam: Present: other (Trachea is in midline). Absent: tenderness, meningismus Respiratory exam: Present: normal lung sounds bilaterally. Absent: respiratory distress, wheezes, rales, rhonchi, stridor Cardiovascular Exam: Present: regular rate, normal rhythm, normal heart sounds, other (Normal radial pulses bilaterally) GI/Abdominal exam: Present: soft. Absent: distended, tenderness, guarding Extremities exam: Present: full ROM. Absent: pedal edema Neurological exam: Present: alert, oriented X3, CN II-XII intact, other (Mild dysarthria; NIH stroke scale score = 1). Absent: motor sensory deficit Psychiatric exam: Present: normal affect, normal mood Skin exam: Present: warm, dry, intact, normal color Course Vital Signs 01/24/23 01/24/23 01/24/23 13:12 13:31 13:45 Temperature 97.6 F 97.6 F Pulse Rate 101 H 103 H Respiratory 20 18 18 Rate Blood Pressure 171/84 180/76 167/78 O2 Sat by Pulse 100 99 99 Oximetry 01/24/23 14:00 Temperature Pulse Rate 98 Respiratory 20 Rate Blood Pressure 180/76 O2 Sat by Pulse 99 Oximetry - Reevaluation(s) Reevaluation #1: 01/24/23 13:39 Case, H&P, code stroke activation and pending ED workup was discussed with Dr. Li (neurointerventionalist). He agrees with not obtaining CT angiograms at this time given the patient's low NIH stroke scale score and given the onset time of her symptoms. He recommends medical management. He has no further recommendations at this time. 01/24/23 14:42 Case, H&P, test results, ED management and my discussion with Dr. Li as above were discussed with Dr. Galvan. He accepts hospital admission. He agrees with neurology consultation. He has no further recommendations at this time. 01/24/23 14:52 Patient denies development of any new symptoms while in the ED. Patient continues to have mild dysarthria on exam. Patient's NIH stroke scale score is unchanged at 1. Patient's neurological exam is otherwise normal. Patient is aware of her test results and my discussion with Dr. Galvan as above. Patient agrees with hospital admission at this time. EKG Findings - EKG Comments: EKG Findings:: ED physician interpretation (interpreted by me): Sinus tachycardia, ventricular rate of 100 bpm, no ectopy, normal KS and QRS intervals, normal QT interval, normal axis, no ST or T-wave abnormality Medical Decision Making - Medical Decision Making Was pt. sent in by a medical professional or institution (, PA, ANIMAL LABORATORY TECHNICIAN, urgent care, hospital, or intermediate...) When possible be specific @ -No Did you speak to anyone other than the patient for history (EMS, parent, family, police, friend...)? What history was obtained from this source @ -No Did you review nursing and triage notes (agree or disagree)? Why? @ -I reviewed and agree with nursing and triage notes Were old charts reviewed (outside hosp., previous admission, EMS record, old EKG, old radiological studies, urgent care reports/EKG's, intermediate records)? Report findings @ -No old charts were reviewed Differential Diagnosis (chest pain, altered mental status, abdominal pain women, abdominal pain men, vaginal bleeding, weakness, fever, dyspnea, syncope, headache, dizziness, GI bleed, back pain, seizure, CVA, palpatations, mental health, musculoskeletal)? @ -Differential CVA Ischemic stroke, hemorrhagic stroke, brain tumor, atypical migraine, Wernicke's encephalopathy, seizure, multiple sclerosis, hypoglycemia, medication reaction, drug abuse, electrolytes disturbance, myasthenia gravis.... This is not meant to be an all-inclusive list EKG interpreted by me (3pts min.). @ -As above X-rays interpreted by me (1pt min.). @ -Chest x-ray was reviewed myself and shows no acute abnormality. I agree with the radiologist's interpretation as above. CT interpreted by me (1pt min.). @ -Noncontrast head CT was reviewed myself and shows no acute abnormality. I agree with the radiologist's interpretation as above. U/S interpreted by me (1pt. min.). @ -None done What testing was considered but not performed or refused? (CT, X-rays, U/S, labs)? Why? @ -None What meds were considered but not given or refused? Why? @ -None Did you discuss the management of the patient with other professionals (professionals i.e. , PA, ANIMAL LABORATORY TECHNICIAN, lab, RT, psych nurse, school social worker, agent producer, teacher, bank secrecy act officer, correctional case manager)? Give summary @ -As above. Was smoking cessation discussed for >3mins.? @ -No Was critical care preformed (if so, how long)? @ -No Were there social determinants of health that impacted care today? How? (Homelessness, low income, unemployed, alcoholism, drug addiction, transportation, low edu. Level, literacy, decrease access to med. care, retirement, rehab)? @ -No Was there de-escalation of care discussed even if they declined (Discuss DNR or withdrawal of care, Hospice)? DNR status @ -No What co-morbidities impacted this encounter? (DM, HTN, Smoking, COPD, CAD, Cancer, CVA, ARF, Chemo, Hep., AIDS, mental health diagnosis, sleep apnea, morbid obesity)? @ -History of CVA. Was patient admitted / discharged? Hospital course, mention meds given and route, prescriptions, significant lab abnormalities, going to OR and other pertinent info. @ -Patient presented to the ED complaining of having slurred speech since she awoke this morning. Patient states that she was last normal prior to going to bed at about 11 PM last night. Patient's NIH stroke scale score is 1. Patient's ED workup is fairly unremarkable, including a negative noncontrast head CT. Patient's slurred speech may be due to the multiple medications that she is taking that could potentially cause this, but given her history of CVA, will admit the patient to the hospital for TIA/CVA workup and neurology consultation. Patient was given a dose of oral aspirin in the ED. Neurointensivist (Dr. Li) was consulted from the ED. Dr. Galvan has accepted hospital admission. Undiagnosed new problem with uncertain prognosis? @ -No Drug Therapy requiring intensive monitoring for toxicity (Heparin, Nitro, Insulin, Cardizem)? @ -No Were any procedures done? @ -No Diagnosis/symptom? @ -Slurred speech Acute, or Chronic, or Acute on Chronic? @ -Acute Uncomplicated (without systemic symptoms) or Complicated (systemic symptoms)? @ -default Side effects of treatment? @ -No Exacerbation, Progression, or Severe Exacerbation? @ -No Poses a threat to life or bodily function? How? (Chest pain, [place], [place], pneumonia, PE, COPD, DKA, ARF, appy, cholecystitis, CVA, Diverticulitis, Homicidal, Suicidal, threat to staff... and all critical care pts) @ -No - Lab Data Result diagrams: 01/24/23 13:39 01/24/23 13:39 Lab Results 01/24/23 01/24/23 01/24/23 Range/Units 13:29 13:39 13:39 WBC 10.4 (3.8-10.6) k/uL RBC 4.20 (3.80-5.40) m/uL Hgb 11.5 (11.4-16.0) gm/dL Hct 37.2 (34.0-46.0) % MCV 88.4 (80.0-100.0) fL MCH 27.2 (25.0-35.0) pg MCHC 30.8 L (31.0-37.0) g/dL RDW 16.2 H (11.5-15.5) % Plt Count 360 (150-450) k/uL MPV 7.6 Neutrophils % 77 % Lymphocytes % 16 % Monocytes % 4 % Eosinophils % 1 % Basophils % 0 % Neutrophils # 8.0 H (1.3-7.7) k/uL Lymphocytes # 1.7 (1.0-4.8) k/uL Monocytes # 0.4 (0-1.0) k/uL Eosinophils # 0.1 (0-0.7) k/uL Basophils # 0.0 (0-0.2) k/uL Hypochromasia Moderate Anisocytosis Slight PT 9.5 (9.0-12.0) sec INR 0.9 (<1.2) APTT 24.1 (22.0-30.0) sec Sodium (137-145) mmol/L Potassium (3.5-5.1) mmol/L Chloride (98-107) mmol/L Carbon Dioxide (22-30) mmol/L Anion Gap mmol/L BUN (7-17) mg/dL Creatinine (0.52-1.04) mg/dL Est GFR (CKD-EPI)AfAm (>60 ml/min/1.73 sqM) Est GFR (CKD-EPI)NonAf (>60 ml/min/1.73 sqM) Glucose (74-99) mg/dL POC Glucose (mg/dL) 159 H (70-110) mg/dL POC Glu Manager Process Improvement ID Diamond Rutledge Calcium (8.4-10.2) mg/dL Total Bilirubin (0.2-1.3) mg/dL AST (14-36) U/L ALT (4-34) U/L Alkaline Phosphatase (38-126) U/L Creatine Kinase (30-135) U/L Troponin I (0.000-0.034) ng/mL Total Protein (6.3-8.2) g/dL Albumin (3.5-5.0) g/dL Urine Color Urine Appearance (Clear) Urine pH (5.0-8.0) Ur Specific [place] (1.001-1.035) Urine Protein (Negative) Urine Glucose (UA) (Negative) Urine Ketones (Negative) Urine Blood (Negative) Urine Nitrite (Negative) Urine Bilirubin (Negative) Urine Urobilinogen (<2.0) mg/dL Ur Leukocyte Esterase (Negative) Urine Opiates Screen (NotDetected) Ur Oxycodone Screen (NotDetected) Urine Methadone Screen (NotDetected) Ur Propoxyphene Screen (NotDetected) Ur Barbiturates Screen (NotDetected) U Tricyclic Antidepress (NotDetected) Ur Phencyclidine Scrn (NotDetected) Ur Amphetamines Screen (NotDetected) U Methamphetamines Scrn (NotDetected) U Benzodiazepines Scrn (NotDetected) Urine Cocaine Screen (NotDetected) U Marijuana (THC) Screen (NotDetected) Serum Alcohol mg/dL 01/24/23 01/24/23 01/24/23 Range/Units 13:39 13:39 14:16 WBC (3.8-10.6) k/uL RBC (3.80-5.40) m/uL Hgb (11.4-16.0) gm/dL Hct (34.0-46.0) % MCV (80.0-100.0) fL MCH (25.0-35.0) pg MCHC (31.0-37.0) g/dL RDW (11.5-15.5) % Plt Count (150-450) k/uL MPV Neutrophils % % Lymphocytes % % Monocytes % % Eosinophils % % Basophils % % Neutrophils # (1.3-7.7) k/uL Lymphocytes # (1.0-4.8) k/uL Monocytes # (0-1.0) k/uL Eosinophils # (0-0.7) k/uL Basophils # (0-0.2) k/uL Hypochromasia Anisocytosis PT (9.0-12.0) sec INR (<1.2) APTT (22.0-30.0) sec Sodium 141 (137-145) mmol/L Potassium 5.1 (3.5-5.1) mmol/L Chloride 106 (98-107) mmol/L Carbon Dioxide 25 (22-30) mmol/L Anion Gap 10 mmol/L BUN 20 H (7-17) mg/dL Creatinine 0.74 (0.52-1.04) mg/dL Est GFR (CKD-EPI)AfAm >90 (>60 ml/min/1.73 sqM) Est GFR (CKD-EPI)NonAf 89 (>60 ml/min/1.73 sqM) Glucose 140 H (74-99) mg/dL POC Glucose (mg/dL) (70-110) mg/dL POC Glu Manager Process Improvement ID Calcium 9.6 (8.4-10.2) mg/dL Total Bilirubin 0.3 (0.2-1.3) mg/dL AST 24 (14-36) U/L ALT 19 (4-34) U/L Alkaline Phosphatase 71 (38-126) U/L Creatine Kinase 60 (30-135) U/L Troponin I <0.012 (0.000-0.034) ng/mL Total Protein 7.3 (6.3-8.2) g/dL Albumin 3.9 (3.5-5.0) g/dL Urine Color Light Yellow Urine Appearance Clear (Clear) Urine pH 7.0 (5.0-8.0) Ur Specific [place] 1.007 (1.001-1.035) Urine Protein Negative (Negative) Urine Glucose (UA) Trace H (Negative) Urine Ketones Negative (Negative) Urine Blood Negative (Negative) Urine Nitrite Negative (Negative) Urine Bilirubin Negative (Negative) Urine Urobilinogen <2.0 (<2.0) mg/dL Ur Leukocyte Esterase Negative (Negative) Urine Opiates Screen Detected H (NotDetected) Ur Oxycodone Screen Not Detected (NotDetected) Urine Methadone Screen Not Detected (NotDetected) Ur Propoxyphene Screen Not Detected (NotDetected) Ur Barbiturates Screen Not Detected (NotDetected) U Tricyclic Antidepress Detected H (NotDetected) Ur Phencyclidine Scrn Not Detected (NotDetected) Ur Amphetamines Screen Not Detected (NotDetected) U Methamphetamines Scrn Not Detected (NotDetected) U Benzodiazepines Scrn Detected H (NotDetected) Urine Cocaine Screen Not Detected (NotDetected) U Marijuana (THC) Screen Not Detected (NotDetected) Serum Alcohol <10 mg/dL - Radiology Data Chest x-ray: No acute cardiopulmonary process. No significant change from prior. Noncontrast head CT: No acute intracranial hemorrhage or midline shift. There is mild to moderate diffuse cerebral atrophy and mild chronic small vessel ischemic change with old left frontal lobe lacunar infarct all redemonstrated. No significant change from most recent prior CT. Disposition Clinical Impression: Slurred speech Disposition: ADMITTED IP TO THIS [facility] Condition: Stable Is patient prescribed a controlled substance at d/c from ED?: No Time of Disposition: 14:44
[2023-01-24 13:30] LABS: Glucose,Whole Blood 159 mg/dL (70-110)
[2023-01-24 13:48] LABS: Anisocytosis Slight; Basophils % (A) 0 %; Eosinophils # (A) 0.1 k/uL (0-0.7); Eosinophils % (A) 1 %; HCT 37.2 % (34.0-46.0); HGB 11.5 gm/dL (11.4-16.0); Hypochromasia Moderate; Lymphocytes # (A) 1.7 k/uL (1.0-4.8); Lymphocytes % (A) 16 %; MCH 27.2 pg (25.0-35.0); MCHC 30.8 g/dL (31.0-37.0); MCV 88.4 fL (80.0-100.0); Mean Platelet Volume 7.6; Monocytes # (A) 0.4 k/uL (0-1.0); Monocytes % (A) 4 %; Neutrophils % (A) 77 %; Platelet Count 360 k/uL (150-450); RDW 16.2 % (11.5-15.5); WBC 10.4 k/uL (3.8-10.6)
[2023-01-24 13:56] LABS: INR 0.9 (<1.2); Partial Thromboplastin Time 24.1 sec (22.0-30.0); Prothrombin Time 9.5 sec (9.0-12.0)
[2023-01-24 14:04] LABS: ALT 19 U/L (4-34); AST 24 U/L (14-36); African American GFR (CKD) >90 (>60 ml/min/1.73 sqM); Albumin 3.9 g/dL (3.5-5.0); Alcohol <10 mg/dL; Alkaline Phosphatase 71 U/L (38-126); Anion Gap 10 mmol/L; Blood Urea Nitrogen 20 mg/dL (7-17); Calcium 9.6 mg/dL (8.4-10.2); Carbon Dioxide 25 mmol/L (22-30); Chloride 106 mmol/L (98-107); Creatine Kinase 60 U/L (30-135); Glucose 140 mg/dL (74-99); Non-African American GFR(CKD) 89 (>60 ml/min/1.73 sqM); Potassium 5.1 mmol/L (3.5-5.1); Sodium 141 mmol/L (137-145); Total Bilirubin 0.3 mg/dL (0.2-1.3); Total Protein 7.3 g/dL (6.3-8.2)
--- NOTE | 2023-01-24 14:19 | CT ---
EXAMINATION TYPE: CT brain wo con DATE OF EXAM: 01/24/2023 HISTORY: Acute onset neuro deficit. CT DLP: 1117 mGycm. Automated Exposure Control for Dose Reduction was Utilized. TECHNIQUE: CT scan of the head is performed without contrast. COMPARISON: Brain June 22, 2020. FINDINGS: There is no acute intracranial hemorrhage or midline shift identified. There is mild to m oderate diffuse ventricular and sulcal prominence redemonstrated. There is mild low-attenuation in t he periventricular white matter redemonstrated. Old lacunar infarct left frontal lobe axial image 38 is redemonstrated. Some dependent fluid left maxillary sinus. Patchy opacification or fluid left et hmoid sinus. Globes are intact bilaterally. IMPRESSION: No acute intracranial hemorrhage or midline shift. There is [id number] diffuse ce rebral atrophy and mild chronic small vessel ischemic change with old left frontal lobe lacunar infar ct all redemonstrated. No significant change from most recent prior CT
[2023-01-24] MEDS ORDERED: ASPIRIN 81 MG PO STA (14:26)
--- NOTE | 2023-01-24 14:28 | XR ---
EXAMINATION TYPE: XR chest 2V DATE OF EXAM: 01/24/2023 COMPARISON: Chest x-ray June 22, 2020 HISTORY: Altered mental status and weakness. Slurred speech. TECHNIQUE: Frontal and lateral views of the chest are obtained. FINDINGS: Right-sided PICC line terminates in SVC. There is no focal air space opacity, pleural effu roseann, or pneumothorax seen. The cardiac silhouette size is stable and within normal limits. The os seous structures are somewhat demineralized. IMPRESSION: No acute cardiopulmonary process. No significant change from prior.
[2023-01-24 14:42] LABS: Appearance,Urine Clear (Clear); Bilirubin,Urine Negative (Negative); Blood,Urine Negative (Negative); Color,Urine Light Yellow; Glucose,Urine (UA) Trace (Negative); Ketones,Urine Negative (Negative); Leukocyte Esterase,Urine Negative (Negative); Nitrite,Urine Negative (Negative); Protein,Urine Negative (Negative); Specific Gravity,Urine 1.007 (1.001-1.035); Urobilinogen,Urine <2.0 mg/dL (<2.0)
[2023-01-24 14:46] LABS: Urn Cannabinoid Scrn Not Detected (NotDetected)
[2023-01-24 14:47] LABS: Amphetamine Screen,Urine Not Detected (NotDetected); Barbiturate Screen,Urine Not Detected (NotDetected); Benzodiazepines Screen,Urine Detected (NotDetected); Cocaine Screen,Urine Not Detected (NotDetected); Methadone Screen, Urine Not Detected (NotDetected); Opiate Screen,Urine Detected (NotDetected); Oxycodone Screen, Urine Not Detected (NotDetected); Phencyclidine Screen,Urine Not Detected (NotDetected); Tricyclic Antidepressant,Urine Detected (NotDetected)
[2023-01-24] MEDS ORDERED: NALOXONE 0.4 MG/ML 1 ML VIAL IV PRN (14:51)
[2023-01-24] MEDS: SODIUM CHLORIDE 0.9% 1,000 ML IV SCH (15:33)
[2023-01-24] MEDS: hydrALAZINE HCL 50 MG TAB PO SCH ×2 (16:13→21:17)
[2023-01-24 16:57] LABS: Glucose,Whole Blood 71 mg/dL (70-110)
[2023-01-24] MEDS ORDERED: INSULIN ASPART (NovoLOG) 100 UNIT/ML VIAL SQ SCH (17:30)
[2023-01-24] MEDS: HYDROcodone/APAP 10-325MG 1 EACH TAB PO PRN ×2 (17:46→21:18)
--- NOTE | 2023-01-24 17:46 | HP ---
HISTORY AND PHYSICAL CHIEF COMPLAINT: Slurring of speech. HISTORY OF PRESENT ILLNESS: This is a 62-year-old woman, with a past medical history of multiple medical problems, known diabetes type 2, history of TIA, history of left leg wound - on hyperbaric oxygen, also noted to have slurring of speech. The patient was admitted to rule out the possibility of TIA versus stroke. There is no history of fever, rigors, chills. A CT brain showed small vessel changes with left frontal lobe lacunar infarct. PAST MEDICAL HISTORY: Reviewed, include diabetes mellitus, TIA. Rest of the history and the rest of the chart is also reviewed. HOME MEDICATIONS: Reviewed include Seroquel dose. The rest of the medications are reviewed. ALLERGIES: Codeine. FAMILY HISTORY: History of diabetes mellitus, hypertension, hyperlipidemia. SOCIAL HISTORY: Previous history of smoking. REVIEW OF SYSTEMS: A 14-point review is negative as mentioned earlier. PHYSICAL EXAMINATION: VITAL SIGNS : Pulse is 98, blood pressure 118/70, respirations 20. HEENT: Conjunctiva normal. NECK: No jugular venous distention. CARDIOVASCULAR: No murmurs. RESPIRATIONS: A few scattered rhonchi. ABDOMEN: Soft, nontender. NERVOUS SYSTEM: Mild weakness, otherwise no focal weakness. and dysarthric. SKIN: No ulcer, rash, bleeding. JOINTS: No active deforming arthropathy. LABORATORY DATA: Reviewed. ASSESSMENT: 1. Slurring of speech, possible acute transient ischemic attack. 2. Left leg wound, chronic. 3. Diabetes mellitus, type 2. 4. Hypertension. 5. Hyperlipidemia. RECOMMENDATION: This is a 62-year-old woman who presented with multiple complex medical issues. We will monitor the patient closely. I would recommend full neurovascular workup. Neurology consultation. Antiplatelet agents. Consult Dr. Mcbride for the left leg wound. PROGNOSIS: Guarded because of multiple complex medical issues. Further recommendations to follow. MMODL / IJN: [id number] / [email or web address]
[2023-01-24] MEDS ORDERED: TICAGRELOR 90 MG TAB PO STA (18:56)
[2023-01-24] MEDS ORDERED: INSULIN DETEMIR (LEVEMIR) 100 UNIT/ML SYR SQ SCH ×2 (21:00→22:30)
[2023-01-24] MEDS ORDERED: ATORVASTATIN 20 MG TAB PO SCH (21:00)
[2023-01-24] MEDS: FUROSEMIDE 40 MG TAB PO SCH (21:18)
[2023-01-24] MEDS: POTASSIUM CHLORIDE ER 20 MEQ TAB.ER PO SCH (21:19)
[2023-01-24] MEDS: TICAGRELOR 90 MG TAB PO SCH (21:24)
[2023-01-24] MEDS ORDERED: PREGABALIN 100 MG CAP PO STA (23:09)
[2023-01-24] MEDS ORDERED: QUEtiapine 50 MG TAB PO SCH (23:15)
[2023-01-25] MEDS: SODIUM CHLORIDE 0.9% 1,000 ML IV SCH (04:21)
[2023-01-25 04:55] LABS: Glucose,Whole Blood 32 mg/dL (70-110)
[2023-01-25 05:23] LABS: Glucose,Whole Blood 74 mg/dL (70-110)
--- NOTE | 2023-01-25 08:07 | US ---
EXAMINATION TYPE: US carotid duplex BILAT DATE OF EXAM: 01/25/2023 Exam done portable COMPARISON: CT 2018 CLINICAL INDICATION: Female, 62 years old with history of Acute CVA; Slurred speech TECHNIQUE: Carotid duplex ultrasound examination. Indirect Doppler criteria was utilized. FINDINGS: EXAM MEASUREMENTS: RIGHT: Peak Systolic Velocity (PSV) cm/sec ----- Right CCA: 116.0 ----- Right ICA: 95.5 ----- Right ECA: 147.0 ICA/CCA ratio: 0.8 RIGHT: End Diastole cm/sec ----- Right CCA: 21.4 ----- Right ICA: 13.6 ----- Right ECA: 0.0 LEFT: Peak Systolic Velocity (PSV) cm/sec ----- Left CCA: 113.0 ----- Left ICA: 90.2 ----- Left ECA: 119.0 ICA/CCA ratio: 0.8 LEFT: End Diastole cm/sec ----- Left CCA: 18.8 ----- Left ICA: 14.8 ----- Left ECA: 20.0 VERTEBRALS (direction of flow): Right Vertebral: Antegrade Left Vertebral: Antegrade Rhythm: Normal No significant stenosis IMPRESSION: No hemodynamically significant stenosis in either internal carotid artery. Criteria for Assigning % of Stenosis / Diameter reduction (Estimation based on the indirect measurements of the internal carotid artery velocities (ICA PSV). 1. Normal (no stenosis)=ICA PSV < 125 cm/s: ratio < 2.0: ICA EDV<40 cm/s. 2. Less than 50% stenosis=ICA PSV < 125 cm/s: ratio < 2.0: ICA EDV<40 cm/s. 3. 50 to 69% stenosis=ICA PSV of 125 to 230 cm/s: ration 2.0 ? 4.0: ICA EDV 40-100 cm/s. 4. Greater than 70% stenosis to near occlusion= ICA PSV > 230 cm/s: ratio > 4.0: ICA EDV > 100 cm/s. 5. Near occlusion= ICA PSV velocities may be low or undetectable: variable ratio and ICA EDV. 6. Total occlusion=unable to detect flow.
[2023-01-25 08:22] LABS: Anisocytosis Slight; Basophils % (A) 0 %; Eosinophils # (A) 0.1 k/uL (0-0.7); Eosinophils % (A) 1 %; HCT 36.6 % (34.0-46.0); HGB 10.9 gm/dL (11.4-16.0); Hypochromasia Marked; Lymphocytes # (A) 1.3 k/uL (1.0-4.8); Lymphocytes % (A) 16 %; MCH 26.9 pg (25.0-35.0); MCHC 29.9 g/dL (31.0-37.0); MCV 90.1 fL (80.0-100.0); Mean Platelet Volume 7.7; Monocytes # (A) 0.3 k/uL (0-1.0); Monocytes % (A) 4 %; Neutrophils # (A) 6.3 k/uL (1.3-7.7); Neutrophils % (A) 77 %; Platelet Count 351 k/uL (150-450); RBC 4.06 m/uL (3.80-5.40); RDW 16.4 % (11.5-15.5); WBC 8.2 k/uL (3.8-10.6)
[2023-01-25 08:31] LABS: ALT 17 U/L (4-34); AST 19 U/L (14-36); African American GFR (CKD) >90 (>60 ml/min/1.73 sqM); Albumin 3.7 g/dL (3.5-5.0); Alkaline Phosphatase 82 U/L (38-126); Anion Gap 9 mmol/L; Blood Urea Nitrogen 14 mg/dL (7-17); Calcium 9.2 mg/dL (8.4-10.2); Carbon Dioxide 24 mmol/L (22-30); Chloride 105 mmol/L (98-107); Glucose 271 mg/dL (74-99); Non-African American GFR(CKD) >90 (>60 ml/min/1.73 sqM); Potassium 4.7 mmol/L (3.5-5.1); Sodium 138 mmol/L (137-145); Total Bilirubin 0.3 mg/dL (0.2-1.3); Total Protein 6.8 g/dL (6.3-8.2)
--- NOTE | 2023-01-25 08:41 | P.CNNES ---
History of Present Illness Consult date: 01/24/23 Requesting physician: Torres Jarquin Reason for Consult: Slurred speech History of Present Illness: Patient is a 62-year-old right-handed female with history of diabetes, hypertension and tobacco use, came to the hospital today at 1:09 PM for slurred speech. Patient states that she woke up at 6:30 in the morning in usual state of health. When her friend, (who is her ex-) came over and she started talking, felt she had slurred speech. She thought that she does not have her dentures put in, therefore she put her dentures, but the speech stayed slurred. She checked her blood sugar, which was 68. She thought it was low sugar, ate something, but did not get better. Patient has a nonhealing wound in the left heel for which she is getting antibiotic treatment at the infusion center. She went to the infusion center at 10 AM and got through the infusion. She did not talk a lot during infusion, however when she was done, when she talked to the nurses, she was noted to have slurred speech, hard time answering questions, therefore she was sent to the ER for further evaluation. Patient denied any fac ial droop, visual disturbance more than her baseline from diabetes, or any new numbness or tingling or focal weakness. At present her speech continues to be slurred, which she describes as "labored speech" Patient states that this has happened one time before about a month ago when this slurred speech lasted for only couple minutes. Patient also states that about 10 years ago, she had a TIA, also consisting of transient slurred speech. She went to the hospital, checked out and no obvious cause was found. Vital signs on arrival blood pressure 171/84, pulse rate 101, temperature 97.6. Blood test shows normal CBC, PT/PTT, normal CMP, troponin. UA is negative, urine drug screen positive for opiate, tricyclic and benzodiazepine. Blood alcohol level was < 10. CT head showed no acute intracranial hemorrhage or midline shift. There is mild to moderate diffuse cerebral atrophy and mild chronic small vessel ischemic change with old left frontal lobe lacunar infarct already demonstrated. No significant change from most recent prior CT from 06/22/2020. I personally reviewed CT head, agree with the findings. Chest x- ray showed no acute process. EKG shows sinus tachycardia. Patient has history of diabetes for 29 years, also hypertension. She has smoked 1 pack per day for 10 years, but in the last 5 years she has decreased smoking to about 3-5 cigarettes per day. Denies any alcohol or drug use. Patient has history of low back surgery in the past. Patient has been taking aspirin 81 mg daily since November 2022. Review of Systems Constitutional: Reports chills, Reports weight gain, Denies fever Eyes: bilateral blurred vision, denies diplopia (Slight recently), denies pain Ears: deny: decreased hearing, ear discharge Ears, nose, mouth and throat: Denies headache, Denies nasal congestion, Denies sore throat Cardiovascular: Denies chest pain, Denies shortness of breath Respiratory: Denies cough, Denies excessive sputum Gastrointestinal: Denies abdominal pain, Denies diarrhea, Denies nausea, Denies vomiting Genitourinary: Reports urinary frequency, Denies dysuria, Denies hematuria, Denies urge incontinence Musculoskeletal: Reports low back pain, Denies myalgias, Denies neck pain Integumentary: Reports wounds, Denies pruritus, Denies rash Neurological: Reports as per HPI Psychiatric: Denies anxiety, Denies depression Endocrine: Reports weight change, Denies fatigue Hematologic/Lymphatic: Reports easy bruising, Denies easy bleeding Past Medical History Past Medical History: CVA/TIA, Diabetes Mellitus, Hyperlipidemia, Hypertension, Musculoskeletal Disorder, Osteoarthritis (OA), Sleep Apnea/CPAP/BIPAP Additional Past Medical History / Comment(s): bipolar, tia 2006, chronic lower back pain, dry skin, osteomyelitis, West Nile, 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 wound care for left fod outpatient. History of Any Multi-Drug Resistant Organisms: None Reported Past Surgical History: Back Surgery, Section, Hysterectomy, Orthopedic Surgery Additional Past Surgical History / Comment(s): Lumbar laminectomy, then lumbar fusion x2, right carpal tunnel release Past Anesthesia/Blood Transfusion Reactions: Previous Problems w/ Anesthesia Additional Past Anesthesia/Blood Transfusion Reaction / Comment(s): slow to come out, very agitated Past Psychological History: Anxiety, Bipolar, Depression Smoking Status: Former smoker Past Alcohol Use History: None Reported Additional Past Alcohol Use History / Comment(s): quit smoking 2 yrs. ago, smoked since teens<ppd Past Drug Use History: None Reported - Past Family History Father Family Medical History: Diabetes Mellitus, Hyperlipidemia, Hypertension Additional Family Medical History / Comment(s): retinopathy Mother Family Medical History: Hyperlipidemia, Hypertension, Myocardial Infarction (MA), Thyroid Disorder Additional Family Medical History / Comment(s): triple vessel cabg Medications and Allergies Home Medications Medication Instructions Recorded Confirmed Type Insulin Glargine,Hum.rec.anlog 35 unit SQ HS 06/22/20 01/24/23 History [Lantus Solostar Pen] ARIPiprazole [Abilify] 10 mg PO DAILY 10/11/21 01/24/23 History Atorvastatin [Lipitor] 20 mg PO HS 01/24/23 01/24/23 History Furosemide [Lasix] 40 mg PO BID 01/24/23 01/24/23 History HYDROcodone/APAP 10-325MG [[place] 1 tab PO QID PRN 01/24/23 01/24/23 History 10-325] Insulin Aspart [NovoLOG Flexpen] 7 units SQ AC-BID@0900,1300 01/24/23 01/24/23 History Insulin Aspart [NovoLOG Flexpen] 9 units SQ AC-SUPPER 01/24/23 01/24/23 History Insulin Aspart [NovoLOG Flexpen] See Protocol SQ AC-TID 01/24/23 01/24/23 History LORazepam [Ativan] 1 mg PO TID PRN 01/24/23 01/24/23 History Potassium Chloride ER [K-Dur 20] 20 meq PO BID 01/24/23 01/24/23 History Pregabalin [Lyrica] 300 mg PO BID 01/24/23 01/24/23 History QUEtiapine FUMARATE [SEROquel] 300 mg PO HS 01/24/23 01/24/23 History buPROPion XL [Wellbutrin XL] 300 mg PO DAILY 01/24/23 01/24/23 History hydrALAZINE HCL [Apresoline] 100 mg PO TID 01/24/23 01/24/23 History lamoTRIgine [LaMICtal] 150 mg PO DAILY 01/24/23 01/24/23 History lisinopriL [Prinivil] 20 mg PO DAILY 01/24/23 01/24/23 History Allergies Allergy/AdvReac Type Severity Reaction Status Date / Time codeine Allergy Unknown Verified 01/24/23 15:12 steroids AdvReac INCREASED Uncoded 01/24/23 15:12 BLOOD SUGAR Physical Examination - Vital Signs Vital Signs: Vital Signs Temp Pulse Pulse Resp BP BP Pulse Ox 01/24/23 16:15 97.8 F 104 H 17 171/77 100 01/24/23 15:15 96 18 198/90 99 01/24/23 15:00 100 16 155/81 99 01/24/23 14:45 100 18 157/74 99 01/24/23 14:30 97 16 180/76 96 01/24/23 14:00 98 20 180/76 99 01/24/23 13:45 18 167/78 99 01/24/23 13:31 97.6 F 103 H 18 180/76 99 01/24/23 13:12 97.6 F 101 H 20 171/84 100 Intake and Output 01/24/23 01/24/23 01/24/23 06:59 14:59 22:59 Other: Weight 83.915 kg 83.915 kg Patient is a late middle aged female, very pleasant, in no acute distress. Patient is alert awake oriented to time place and person. Speech is mild to moderately dysarthric and language functions are normal. Patient can name and repeat very well. No aphasia. Attention, concentration and fund of knowledge is adequate. On cranial nerve examination, pupils are equal, round and reacting to light, visual sampson are full on confrontation, with no neglect on double simultaneous stimulation. Extraocular muscles are intact with no nystagmus. Face is symmetric, tongue protrudes to the midline. Palatal elevation and sensation normal, hearing is slightly decreased and shoulder shrug normal, facial sensation normal. On muscle strength testing, there is no pronator drift and the strength is normal in arms distally and proximally. In the lower limb, patient has a chroni c left foot drop related to her previous back surgery. Therefore the strength is (right/left) hip flexion 4/4, ankle dorsiflexion 5/2, toe extension 5/0. Deep tendon reflexes are symmetric biceps 1+, brachioradialis 1+, knees trace, absent right ankle, not checked on the left because of ulcer. Plantar is flat on the right. Sensory to touch is equal with no neglect on double simultaneous stimulation. Cerebellar function showed no ataxia for [id number] testing, although she was slow to perform task with the left hand. No ataxia for [id number] testing with the right leg, not checked the leg because of her heel ulcer. Tone and bulk of muscles normal. Gait deferred.. On general examination, there is no carotid bruit or murmur, S1-S2 audible. Chest is clear on consultation. Abdomen is soft nontender. No organomegaly, bowel sounds present. Patient has healed ulcer on the left. Results - Laboratory Findings CBC and BMP: 01/24/23 13:39 01/24/23 13:39 Abnormal Lab Findings: Abnormal Labs 01/24/23 01/24/23 01/24/23 13:29 13:39 13:39 MCHC 30.8 L RDW 16.2 H Neutrophils # 8.0 H BUN 20 H Glucose 140 H POC Glucose (mg/dL) 159 H Urine Glucose (UA) Urine Opiates Screen U Tricyclic Antidepress U Benzodiazepines Scrn 01/24/23 14:16 MCHC RDW Neutrophils # BUN Glucose POC Glucose (mg/dL) Urine Glucose (UA) Trace H Urine Opiates Screen Detected H U Tricyclic Antidepress Detected H U Benzodiazepines Scrn Detected H Assessment and Plan Assessment: * Probable acute stroke, manifesting with dysarthria. Her NIH stroke scale is 1. Patient was not a candidate for TPA as she came outside the window for TPA. * Previous history of TIA * Hypertension * Diabetes * Peripheral arterial disease * Left heel nonhealing ulcer, on IV antibiotics and hyperbaric treatment * Tobacco use Plan: * Patient has presented with acute onset of slurred speech, suggestive of possible CVA. * Patient was on aspirin 81 mg daily. We will start patient on Brilinta 180 mg loading dose followed by 90 mg twice a day. This can be continued for a month, then switch to Plavix. * Carotid Doppler revealed no hemodynamically significant stenosis in either ICA. Antegrade flow in both vertebral arteries. * Check MRI of the brain and MRA of the head. * 2-D echo with bubble study, rule out PFO. * Fasting a.m. lipid panel, hemoglobin A1c. * Patient states that she is claustrophobic, and wants to have MRI in an open MRI machine. * She is also concerned about her maintenance of IV antibiotics and treatment with hyperbaric chamber for her non-healing heel ulcer. I would defer to IM to organize while inpatient. * DVT prophylaxis: Start heparin 5000 units subcu every 8 hours. * Permissive hypertension for next 24-48 hours. * Telemetry monitoring, rule out arrhythmia. * Recommend complete tobacco cessation. * PT, OT, speech therapy * Neurology will follow. Thank you for the consult. Time with Patient: Greater than 30
[2023-01-25] MEDS ORDERED: lamoTRIgine 100 MG TAB PO SCH (09:00)
[2023-01-25] MEDS ORDERED: buPROPion XL 300 MG TAB.ER.24H PO SCH (09:00)
[2023-01-25] MEDS ORDERED: ARIPiprazole 10 MG TAB PO SCH (09:00)
[2023-01-25] MEDS ORDERED: INSULIN ASPART (NovoLOG) 100 UNIT/ML VIAL SQ SCH ×2 (09:00→12:00)
[2023-01-25] MEDS ORDERED: ASPIRIN 81 MG PO SCH (09:00)
[2023-01-25] MEDS ORDERED: lisinopriL 20 MG TAB PO SCH (09:00)
[2023-01-25] MEDS: FUROSEMIDE 40 MG TAB PO SCH (09:39)
[2023-01-25] MEDS: TICAGRELOR 90 MG TAB PO SCH (09:39)
[2023-01-25] MEDS: hydrALAZINE HCL 50 MG TAB PO SCH (09:39)
[2023-01-25] MEDS: POTASSIUM CHLORIDE ER 20 MEQ TAB.ER PO SCH (09:39)
--- NOTE | 2023-01-25 09:46 | CONS ---
CONSULTATION HISTORY OF PRESENT ILLNESS: This is a 62-year-old white female, well known to me. Patient came with infected wound heel area on the left side. The patient had extensive debridement and culture. Patient is on IV antibiotic under the care of Infectious Disease. The patient also is having hyperbaric treatment in the [facility] for osteo. The patient came with acute onset of slurred speech. The patient had a stroke workup. Carotid ultrasound shows no hemodynamically significant stenosis. Patient is scheduled to have MRI. PAST MEDICAL HISTORY: History of diabetes, hypertension, and wound on the left heel with IV antibiotic and having hyperbaric treatment. PHYSICAL EXAMINATION: GENERAL: On examination today, the patient was seen in her room. Patient still has slurred speech. NECK: Supple. No bruits appreciated. CHEST: Clear to auscultation. Good air entry in both lungs. HEART: First and second sounds present. ABDOMEN: Soft, nontender. VASCULAR: Femorals are 1+ bilateral. PLAN: Patient has a wound on the left heel. We changed the dressing today and patient will be continued on antibiotics. We will follow with you. MMODL / IJN: [id number] /
[2023-01-25] MEDS: HYDROcodone/APAP 10-325MG 1 EACH TAB PO PRN (09:48)
[2023-01-25 11:45] LABS: Glucose,Whole Blood 225 mg/dL (70-110)
[2023-01-25 12:06] VITALS: BP 192/84; PULSE 107; RESP 17; TEMP 97.5
--- NOTE | 2023-01-25 13:34 | DS ---
DISCHARGE SUMMARY FINAL DIAGNOSES: 1. Slurring of speech, possible acute transient ischemic attack. 2. Left leg wound, chronic. 3. Diabetes mellitus, type 2. 4. Hypertension. 5. Hyperlipidemia. 6. History of transient ischemic attacks. DISCHARGE DISPOSITION: The patient will be discharged in stable condition with guarded prognosis after clearance from Neurology. Outpatient evaluation has been set. The patient is extremely keen on going home. The patient does not want to miss appointments tomorrow. HISTORY OF PRESENT ILLNESS: This 62-year-old woman was admitted with slurring of speech, which has improved. Initial workup did not show any evidence of stroke. TIA was considered. Dr. Mcbride ordered an outpatient MRI. PHYSICAL EXAMINATION: VITAL SIGNS: Stable. CARDIOVASCULAR: S1, S2. ABDOMEN: Soft. NERVOUS SYSTEM: No focal deficits and no slurring. DISCHARGE ADVICE AND MEDICATIONS: Recommend to discharge the patient. Continue the home medication. Continue the antibiotics. Follow up with Dr. Mcbride. Continue with hyperbaric oxygen. Otherwise, medications are, 1. Aspirin 81 mg daily. 2. Brilinta 90 mg p.o. b.i.d. FOLLOWUP: With Dr. Kee and Dr. Mcbride. MMODL / IJN: [id number] / MTDD
[2023-01-25 16:12] LABS: Chol/HDL Ratio 3.46 Ratio; LDL Cholesterol,Calculated 96.3 mg/dL (0.0-131.0)
== END 2023-01-25 12:50 | disposition home or self-care (01) ==
LOC: EC 13:09 → 3SCARD 14:53
PROVIDERS: ADMIT Specialist; ATTEND Specialist
DX: R47.81 Slurred speech (principal); I10 Essential (primary) hypertension; E78.5 Hyperlipidemia, unspecified; E11.69 Type 2 diabetes mellitus with other specified complication; M86.9 Osteomyelitis, unspecified; E11.51 Type 2 diabetes mellitus with diabetic peripheral angiopathy without gangrene; E11.621 Type 2 diabetes mellitus with foot ulcer; L97.429 Non-pressure chronic ulcer of left heel and midfoot with unspecified severity; G47.30 Sleep apnea, unspecified; M19.90 Unspecified osteoarthritis, unspecified site; G89.29 Other chronic pain; M54.50 Low back pain, unspecified; R00.0 Tachycardia, unspecified; F40.240 Claustrophobia; M21.372 Foot drop, left foot; F31.9 Bipolar disorder, unspecified; F41.9 Anxiety disorder, unspecified; F17.210 Nicotine dependence, cigarettes, uncomplicated; Z79.82 Long term (current) use of aspirin; Z79.4 Long term (current) use of insulin; Z79.899 Other long term (current) drug therapy; Z88.5 Allergy status to narcotic agent; Z88.8 Allergy status to other drugs, medicaments and biological substances; Z86.73 Personal history of transient ischemic attack (TIA), and cerebral infarction without residual deficits; Z86.19 Personal history of other infectious and parasitic diseases; Z90.710 Acquired absence of both cervix and uterus; Z98.1 Arthrodesis status; Z98.891 History of uterine scar from previous surgery; Z98.890 Other specified postprocedural states; Z83.518 Family history of other specified eye disorder; Z82.49 Family history of ischemic heart disease and other diseases of the circulatory system; Z83.49 Family history of other endocrine, nutritional and metabolic diseases; Z83.3 Family history of diabetes mellitus
CPT/HCPCS: 96365; 99285; 36415; 94760; 93005; 80061; 80053 ×2; 82550; 84484; 85025 ×2; 85610; 85730; 81003; 87040; 80306; 83036; 71046; 93880; 70450; G0378 ×2; G0480; J0696; J0878; 80320

== ENCOUNTER 2023-04-08 08:53 | Emergency (ER) | payer MEDICARE ==
[2023-04-08 09:00] VITALS: BP 111/70; PULSE 83; RESP 18; TEMP 98.2
[2023-04-08 09:00] LABS: Glucose,Whole Blood 80 mg/dL (70-110)
[2023-04-08 09:30] LABS: Glucose,Whole Blood 115 mg/dL (70-110)
--- NOTE | 2023-04-08 09:42 | ED ---
General Adult HPI - General Chief complaint: Recheck/Abnormal Lab/Rx Stated complaint: hypoglycemic Time Seen by Provider: 04/08/23 09:18 Source: patient, RN notes reviewed Mode of arrival: ambulatory Limitations: no limitations - History of Present Illness Initial comments: Patient is a pleasant 62-year-old female presenting to the emergency department with hypoglycemia. Patient states she went to wound center for hyperbaric chamber for treatment of her foot wound. Patient admits to taking her insulin this morning. Patient states she ate a taco left over from last night. Patient blood sugar was 56. Patient did eat a sandwich in the emergency department. Patient states she feels fine at this time and does not want any further treatment. Patient is requesting discharge home. Patient she has been diabetic for many years and her comfortable with her sugar levels. Patient is symptom- free. - Related Data Home Medications Medication Instructions Recorded Confirmed Insulin Glargine,Hum.rec.anlog 35 unit SQ HS 06/22/20 01/29/23 [Lantus Solostar Pen] ARIPiprazole [Abilify] 10 mg PO DAILY 10/11/21 01/29/23 Atorvastatin [Lipitor] 20 mg PO HS 01/24/23 01/29/23 Furosemide [Lasix] 40 mg PO BID 01/24/23 01/29/23 HYDROcodone/APAP 10-325MG [[place] 1 tab PO QID PRN 01/24/23 01/29/23 10-325] Insulin Aspart [NovoLOG Flexpen] 7 units SQ AC-BID@0900,1300 01/24/23 01/29/23 Insulin Aspart [NovoLOG Flexpen] 9 units SQ AC-SUPPER 01/24/23 01/29/23 Insulin Aspart [NovoLOG Flexpen] See Protocol SQ AC-TID 01/24/23 01/29/23 LORazepam [Ativan] 1 mg PO TID PRN 01/24/23 01/29/23 Potassium Chloride ER [K-Dur 20] 20 meq PO BID 01/24/23 01/29/23 Pregabalin [Lyrica] 200 mg PO BID 01/24/23 01/29/23 QUEtiapine FUMARATE [SEROquel] 300 mg PO HS 01/24/23 01/29/23 buPROPion XL [Wellbutrin XL] 300 mg PO DAILY 01/24/23 01/29/23 hydrALAZINE HCL [Apresoline] 100 mg PO TID 01/24/23 01/29/23 lamoTRIgine [LaMICtal] 150 mg PO DAILY 01/24/23 01/29/23 lisinopriL [Prinivil] 20 mg PO DAILY 01/24/23 01/29/23 Clopidogrel [Plavix] 75 mg PO DAILY 01/28/23 01/29/23 Previous Rx's Medication Instructions Recorded Aspirin 81 mg PO DAILY #30 tab 01/25/23 DAPTOmycin [Cubicin] 600 mg IVPB Q24H each 01/25/23 Ticagrelor [Brilinta] 90 mg PO BID #60 tab 01/25/23 cefTRIAXone [Rocephin] 2 gm IVPB Q24HR each 01/25/23 Allergies Allergy/AdvReac Type Severity Reaction Status Date / Time codeine Allergy Unknown Verified 04/08/23 09:00 steroids AdvReac INCREASED Uncoded 04/08/23 09:00 BLOOD SUGAR Review of Systems ROS Statement: Those systems with pertinent positive or pertinent negative responses have been documented in the HPI. ROS Other: All systems not noted in ROS Statement are negative. Constitutional: Denies: fever Eyes: Denies: eye pain ENT: Denies: ear pain Respiratory: Denies: cough Cardiovascular: Denies: chest pain Endocrine: Denies: fatigue Gastrointestinal: Denies: abdominal pain Genitourinary: Denies: dysuria Musculoskeletal: Denies: back pain Skin: Reports: as per HPI Neurological: Denies: weakness Past Medical History Past Medical History: CVA/TIA, Diabetes Mellitus, Hyperlipidemia, Hypertension, Musculoskeletal Disorder, Osteoarthritis (OA), Sleep Apnea/CPAP/BIPAP Additional Past Medical History / Comment(s): bipolar, tia 2006, chronic lower back pain, dry skin, osteomyelitis, West Nile, 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 wound care for left fod outpatient. History of Any Multi-Drug Resistant Organisms: None Reported Past Surgical History: Back Surgery, Section, Hysterectomy, Orthopedic Surgery Additional Past Surgical History / Comment(s): Lumbar laminectomy, then lumbar fusion x2, right carpal tunnel release Past Anesthesia/Blood Transfusion Reactions: Previous Problems w/ Anesthesia Additional Past Anesthesia/Blood Transfusion Reaction / Comment(s): slow to come out, very agitated Past Psychological History: Anxiety, Bipolar, Depression Smoking Status: Former smoker Past Alcohol Use History: None Reported Past Drug Use History: None Reported - Past Family History Father Family Medical History: Diabetes Mellitus, Hyperlipidemia, Hypertension Additional Family Medical History / Comment(s): retinopathy Mother Family Medical History: Hyperlipidemia, Hypertension, Myocardial Infarction (HI), Thyroid Disorder Additional Family Medical History / Comment(s): triple vessel cabg General Exam Limitations: no limitations General appearance: alert, in no apparent distress Head exam: Present: atraumatic Eye exam: Present: normal appearance, PERRL, EOMI ENT exam: Present: normal oropharynx Neck exam: Present: normal inspection Respiratory exam: Present: normal lung sounds bilaterally Cardiovascular Exam: Present: regular rate, normal rhythm GI/Abdominal exam: Present: soft. Absent: tenderness Extremities exam: Present: other (wrap and boot left foot) Neurological exam: Present: alert, oriented X3, CN II-XII intact. Absent: motor sensory deficit Psychiatric exam: Present: normal affect, normal mood Course Vital Signs 04/08/23 08:56 Temperature 98.2 F Pulse Rate 83 Respiratory 18 Rate Blood Pressure 111/70 O2 Sat by Pulse 97 Oximetry Medical Decision Making - Medical Decision Making Was pt. sent in by a medical professional or institution (, PA, TURN OUT WORKER, urgent care, hospital, or [facility]...) When possible be specific @ -Patient was sent from wound center Did you speak to anyone other than the patient for history (EMS, parent, family, police, friend...)? What history was obtained from this source @ -No Did you review nursing and triage notes (agree or disagree)? Why? @ -I reviewed and agree with nursing and triage notes Were old charts reviewed (outside hosp., previous admission, EMS record, old EKG, old radiological studies, urgent care reports/EKG's, [facility] records)? Report findings @ -No old charts were reviewed Differential Diagnosis (chest pain, altered mental status, abdominal pain women, abdominal pain men, vaginal bleeding, weakness, fever, dyspnea, syncope, headache, dizziness, GI bleed, back pain, seizure, CVA, palpatations, mental health, musculoskeletal)? @ -Differential Weakness: Hypoglycemia, shock, sepsis, hyponatremia, anemia, infection, HI, ETOH, adverse medicine reaction, overdose, stroke, this is not meant to be an all-inclusive list. EKG interpreted by me (3pts min.). @ -As above X-rays interpreted by me (1pt min.). @ -None done CT interpreted by me (1pt min.). @ -None done U/S interpreted by me (1pt. min.). @ -None done What testing was considered but not performed or refused? (CT, X-rays, U/S, labs)? Why? @ -Patient recommended to stay at least another half an hour for repeat blood sugar checking. Patient refuses this. Patient states she is very comfortable with her blood sugar and has a distant history of labile sugars and requests discharge. What meds were considered but not given or refused? Why? @ -None Did you discuss the management of the patient with other professionals (professionals i.e. , PA, TURN OUT WORKER, lab, RT, psych nurse, nursing home social worker, kennel technician, teacher, accounts officer, case packer and sealer)? Give summary @ -No Was smoking cessation discussed for >3mins.? @ -No Was critical care preformed (if so, how long)? @ -No Were there social determinants of health that impacted care today? How? (Homelessness, low income, unemployed, alcoholism, drug addiction, transportation, low edu. Level, literacy, decrease access to med. care, [facility], rehab)? @ -No Was there de-escalation of care discussed even if they declined (Discuss DNR or withdrawal of care, Hospice)? DNR status @ -No What co-morbidities impacted this encounter? (DM, HTN, Smoking, COPD, CAD, Cancer, CVA, ARF, Chemo, Hep., AIDS, mental health diagnosis, sleep apnea, morbid obesity)? @ -None Was patient admitted / discharged? Hospital course, mention meds given and route, prescriptions, significant lab abnormalities, going to OR and other pertinent info. @ -Patient has stable blood sugar. Patient is has eaten and requesting discharge. Patient will be discharged and recommended close follow-up and repeat checking. Patient states she will recheck her sugar when she gets home. Undiagnosed new problem with uncertain prognosis? @ -No Drug Therapy requiring intensive monitoring for toxicity (Heparin, Nitro, Insulin, Cardizem)? @ -No Were any procedures done? @ -No Diagnosis/symptom? @ -Hypoglycemia Acute, or Chronic, or Acute on Chronic? @ -Acute Uncomplicated (without systemic symptoms) or Complicated (systemic symptoms)? @ -default Side effects of treatment? @ -No Exacerbation, Progression, or Severe Exacerbation? @ -No Poses a threat to life or bodily function? How? (Chest pain, [place], HI, pneumonia, PE, COPD, DKA, ARF, appy, cholecystitis, CVA, Diverticulitis, Homicidal, Suicidal, threat to staff... and all critical care pts) @ -No - Lab Data Lab Results 04/08/23 04/08/23 Range/Units 08:59 09:28 POC Glucose (mg/dL) 80 115 H (70-110) mg/dL POC Glu Cab Driver Lea Johnston Amanda Disposition Clinical Impression: Hypoglycemia Disposition: HOME SELF-CARE Condition: Stable Instructions (If sedation given, give patient instructions): Hypoglycemia in a Person with Diabetes (ED) Additional Instructions: Please do check your sugar when he get home and at least 4 times a day. Please do follow-up with your primary care physician in the next day or 2 for recheck. Please follow-up with Wound Center as directed by them. Return for low blood sugar, change in mental status, worsening symptoms or any other concerns. Is patient prescribed a controlled substance at d/c from ED?: No Referrals: Beulah Booth MD [Primary Care Provider] - 1-2 days Time of Disposition: 09:42
== END 2023-04-08 10:06 | disposition home or self-care (01) ==
LOC: EC 08:53
DX: E11.649 Type 2 diabetes mellitus with hypoglycemia without coma (principal); I10 Essential (primary) hypertension; E78.5 Hyperlipidemia, unspecified; G47.30 Sleep apnea, unspecified; F41.9 Anxiety disorder, unspecified; F31.9 Bipolar disorder, unspecified; Z87.891 Personal history of nicotine dependence; Z79.4 Long term (current) use of insulin; Z79.899 Other long term (current) drug therapy; Z88.5 Allergy status to narcotic agent; Z88.8 Allergy status to other drugs, medicaments and biological substances
CPT/HCPCS: 36415; 99283

== ENCOUNTER → 2023-06-19 | Outpatient (CLI) | payer MEDICARE ==
--- NOTE | 2023-06-21 08:25 | MR ---
EXAMINATION TYPE: MR knee LT wo/w con DATE OF EXAM: 06/19/2023 COMPARISON: NONE HISTORY: Pain and swelling left knee, Fall 3 weeks ago, Hx of osteomyelitis in Left heel TECHNIQUE: Multiplanar, multisequence images of the knee is performed without and with IV contrast. Patient give n 8.5 cc of gadolinium. FINDINGS: MEDIAL MENISCUS: There is triangular shaped signal posterior horn does not definitively extend to art icular surface. LATERAL MENISCUS: Anterior and posterior horns are intact without tear. CRUCIATE LIGAMENTS: The anterior and posterior cruciate ligaments are intact and unremarkable. COLLATERAL LIGAMENTS: The medial collateral ligament and lateral collateral ligament complex are inta ct. Mild fluid signal surrounds medial collateral ligament. EXTENSOR MECHANISM: Visualized quadriceps and patellar tendons are intact. EFFUSION: Moderate to large size rim-enhancing suprapatellar joint effusion. POPLITEAL CYST: Small size popliteal/hadley cyst. TRICOMPARTMENT SPACES: Mild to moderate narrowing patellofemoral compartment. CARTILAGE: Chondromalacia patella with cartilaginous loss along the posterior patellar pole BONE MARROW SIGNAL: Irregular Linear T1 signal through the posterior central proximal tibia extends t o articular surface and involves the tibial condyles seen best sagittal images 14 through 19 and erick nal images 23 through 28 has surrounding increased T2 signal or edema. OTHER: No suspicious additional enhancement noted. IMPRESSION: 1. Acute comminuted nondisplaced intra-articularly fracture through the posterior central tibial epip hysis with surrounding osseous contusion injury involves the tibial condyles at the distal cruciate l igament insertions. 2. Intrasubstance tear posterior horn of medial meniscus. No full-thickness meniscal tear is clearly seen. 3. Moderate to large-sized suprapatellar joint effusion. 4. Small popliteal cyst. 5. Mild MCL sprain injury. 6. Tricompartment degenerative changes most prominent patellofemoral compartment as detailed above.
== END | disposition home or self-care (01) ==
LOC: RADMRIMAIN 16:19
PROVIDERS: ATTEND Family Medicine
DX: M17.12 Unilateral primary osteoarthritis, left knee (principal); S80.02XA Contusion of left knee, initial encounter; S83.412A Sprain of medial collateral ligament of left knee, initial encounter; S83.242A Other tear of medial meniscus, current injury, left knee, initial encounter; M25.462 Effusion, left knee; M86.8X6 Other osteomyelitis, lower leg; M71.22 Synovial cyst of popliteal space [Baker], left knee; X58.XXXA Exposure to other specified factors, initial encounter
CPT/HCPCS: 73723; A9585

== ENCOUNTER 2025-01-20 05:47 | Day surgery (SDC) | payer MEDICARE ==
[2025-01-19 09:01] VITALS: BMI 38.9
[2025-01-20] MEDS ORDERED: HEPARIN SODIUM,PORCINE (1 ML) 2,500 UNIT in SODIUM CHLORIDE 0.9% 250 ML IRRIGATION PRN (06:09)
[2025-01-20] MEDS ORDERED: ALPRAZolam 0.5 MG TAB PO PRN (06:09)
[2025-01-20] MEDS ORDERED: ZOLPIDEM 5 MG TAB PO PRN (06:09)
[2025-01-20] MEDS ORDERED: ALPRAZolam 0.25 MG TAB PO PRN (06:09)
[2025-01-20] MEDS: EMPTY BAG 1 BAG with SODIUM CHLORIDE 0.9% 1,000 ML IV SCH (06:26)
[2025-01-20 06:34] LABS: Glucose,Whole Blood 180 mg/dL (70-110)
[2025-01-20] MEDS: IV FLUID CONTINUATION 1,000 ML IV ONE (06:49)
[2025-01-20 06:53] LABS: Basophils # (A) 0.04 10*3/uL (0.00-0.10); Basophils % (A) 0.5 %; Eosinophils # (A) 0.17 10*3/uL (0.04-0.35); HCT 39.4 % (37.2-46.3); Lymphocytes % (A) 20.8 %; MCH 31.5 pg (27.0-32.0); MCV 95.4 fL (80.0-97.0); Mean Platelet Volume 10.1 fL (9.5-12.2); Monocytes # (A) 0.66 10*3/uL (0.20-1.00); Monocytes % (A) 7.6 %; Neutrophils # (A) 5.97 10*3/uL (1.80-7.70); Neutrophils % (A) 68.9 %; Platelet Count 318 10*3/uL (140-440); RBC 4.13 10*6/uL (4.10-5.20); RDW 14.4 % (11.5-14.5); WBC 8.66 10*3/uL (4.50-10.00)
[2025-01-20 07:01] VITALS: RESP 16; TEMP 98.4
[2025-01-20 07:21] LABS: African American GFR (CKD) >90 (>60 ml/min/1.73 sqM); Anion Gap 6 mmol/L; Blood Urea Nitrogen 21 mg/dL (7-17); Calcium 9.2 mg/dL (8.4-10.2); Carbon Dioxide 27 mmol/L (22-30); Chloride 104 mmol/L (98-107); Glucose 200 mg/dL (74-99); Non-African American GFR(CKD) >90 (>60 ml/min/1.73 sqM); Sodium 137 mmol/L (137-145)
[2025-01-20] MEDS: MIDAZOLAM 2 MG/2 ML VIAL IVP ONE ×3 (07:40→08:34)
[2025-01-20] MEDS: fentaNYL (PF) 50 MCG/ML 2 ML AMP IVP ONE ×2 (07:40→08:08)
[2025-01-20] MEDS: LIDOCAINE 1% INJ 10MG/ML (20 ML MDV) SQ ONE (07:41)
[2025-01-20] MEDS: HEPARIN SODIUM 1,000 UN/ML (10ML VL) IVP ONE (07:57)
[2025-01-20] MEDS: HYDROmorphone 1 MG/ML 1 ML SYRINGE IVP ONE (08:20)
[2025-01-20] MEDS: HEPARIN SODIUM,PORCINE 10,000 UNIT in SODIUM CHLORIDE 0.9% 1,000 ML IRRIGATION PRN (08:21)
[2025-01-20] MEDS: IOPAMIDOL-370 100ML BTL INJ ONE (09:23)
[2025-01-20] MEDS: CLOPIDOGREL 75 MG TAB PO ONE (09:28)
[2025-01-20] MEDS: HYDROmorphone 0.5 MG/0.5 ML SYRINGE IVP ONE (09:28)
--- NOTE | 2025-01-20 09:30 | P.OP ---
Date of Procedure: 01/20/25 Preoperative Diagnosis: Disabling claudication left lower extremity Critical limb ischemia left lower extremity Left superficial femoral artery occlusion Postoperative Diagnosis: Same Procedure(s) Performed: Ultrasound-guided right common femoral artery access Selective left lower extremity angiogram third order Percutaneous transluminal atherectomy with Hawk 1 6M device of the left superficial femoral artery and proximal popliteal artery Percutaneous transluminal balloon angioplasty of the left superficial femoral and popliteal artery Percutaneous transluminal stenting of the proximal superficial femoral artery Percutaneous closure of the right common femoral artery with Vascade device Conscious sedation x 90 minutes Anesthesia: local Surgeon: Donnie Diehl Estimated Blood Loss (ml): 5 Pathology: none sent Condition: stable Disposition: PACU Indications for Procedure: 64-year-old female who presented to the office secondary to severe pain in the left lower extremity with ambulation and at rest. She had workup done at [facility] with Dr. Mcbride who obtained Doppler and left lower extremity angiogram which demonstrated a left SFA occlusion with reconstitution above-knee. She presents today for intervention and possible atherectomy. Operative Findings: Left superficial femoral artery occlusion with reconstitution above-knee at the popliteal artery Dense calcific area at the proximal aspect requiring stenting Description of Procedure: After written and informed consent was obtained the patient all risks, benefits and complications were described patient is brought to the Commissary Representative and laid supine position. The area of the right groin was prepped and draped in usual sterile fashion. Timeout was performed in normal fashion. Utilizing ultrasound the right femoral artery was accessed and a 6 F sheath was placed. 035 Glidewire was then placed into the aorta followed by an RBI catheter and the left iliac was accessed in an up and over fashion. Selective angiogram was then obtained of the left lower extremity demonstrating total occlusion of the superficial femoral artery just after takeoff with reconstitution above-knee at the popliteal. Patient was given heparin and followed with ACTs. An 035 Glidewire advantage was then placed in an up and over fashion and the 6 F short sheath was removed and replaced with an up and over 6 F sheath. Selective angiogram was again obtained demonstrating occlusion/stenosis of the SFA on the left. Utilizing 035 Glidewire and quick cross catheter the lesion was crossed and selective angiogram distally was obtained demonstrating good intraluminal access. Once across a 5mm spider filter was placed and utilizing a 6M Hawk one atherectomy device directional atherectomy was performed with multiple passes. Once completed angiogram was obtained demonstrating improvement of the stenotic area. Balloon angioplasty was then performed with a 5 x 250 mm Impact Admiral Balloon. Final angiogram demonstrated improved flow but area of plaque at the proximal That was flow-limiting and therefore stenting was performed. A 5 x 40 mm ever flex stent was then placed in normal fashion. Final angiogram was obtained demonstrating brisk flow through the SFA to the foot with two-vessel runoff. All guidewires and catheters were then removed the sheath was removed and replaced with a short 6 F sheath and utilizing a Vascade closure device the access was closed. Pressure was placed for hemostasis. The patient tolerated the procedure well and had palpable left DP pulse, multiphasic DP bilaterally and was sent to recovery.
[2025-01-20 09:48] LABS: Glucose,Whole Blood 218 mg/dL (70-110)
[2025-01-20] MEDS: INSULIN LISPRO (HumaLOG) 100 UNIT/ML 10 mL VL SQ SCH (09:57)
[2025-01-20] MEDS: HYDROcodone/APAP 10-325MG 1 EACH TAB PO PRN (10:51)
[2025-01-20] MEDS: carvediloL 12.5 MG TAB PO SCH (10:52)
[2025-01-20] MEDS: hydrALAZINE HCL 50 MG TAB PO PRN (10:52)
[2025-01-20 17:29] VITALS: BP 143/60; PULSE 67
--- NOTE | 2025-01-24 14:27 | IR ---
EXAMINATION TYPE: IR derrick boat captain femoral popliteal DATE OF EXAM: 01/20/2025 CLINICAL INDICATION: Female, 64 years old with history of PVD, 30.4MIN FLUORO, TECHNIQUE: Fluoroscopy. COMPARISON: None. FINDINGS: Fluoroscopic guidance was provided during lower extremity angioplasty procedure performed by Dr. Diehl. A total of 30.4 minutes of fluoroscopic time was utilized during the procedure and 5 23 spot images was acquired. TOTAL DAP = 126 Gycm2. IMPRESSION: As Above. [facility], , 01/24/2025 2:25 PM
== END 2025-01-20 14:37 | disposition home or self-care (01) ==
LOC: CATHCVL 05:47
PROVIDERS: ATTEND Surgery
DX: I70.213 Atherosclerosis of native arteries of extremities with intermittent claudication, bilateral legs (principal); I70.229 Atherosclerosis of native arteries of extremities with rest pain, unspecified extremity; E11.22 Type 2 diabetes mellitus with diabetic chronic kidney disease; N18.5 Chronic kidney disease, stage 5; E66.01 Morbid (severe) obesity due to excess calories
CPT/HCPCS: 37226; 37227; 75710; 76937; 80048; 85025; C1894 ×2; C1769 ×4; C1887; C1725; C1714; C1876; C1884; C2623; C1760; J2250; J1644 ×2; J2003; J3010; J1171 ×2; Q9967